=== PATIENT | male | born 1985 | race Caucasian/White ===

== ENCOUNTER 2016-05-30 03:34 | Inpatient (IN) ==
[2016-05-30] MEDS ORDERED: SODIUM CHLORIDE 0.9% 1,000 ML IV STA (04:00)
[2016-05-30] MEDS ORDERED: MORPHINE 2 MG/1 ML SYRINGE IV STA (04:00)
[2016-05-30] MEDS ORDERED: ONDANSETRON 4 MG/2 ML VIAL IV STA (04:00)
[2016-05-30] MEDS ORDERED: ONDANSETRON 4 MG/2 ML VIAL ONE (04:15)
[2016-05-30] MEDS ORDERED: MORPHINE 2 MG/1 ML SYRINGE ONE (04:15)
[2016-05-30 04:35] LABS: Immature Granulocytes % 0.6 %; Immature Granulocytes Absolute 0.09 #; Lymphocytes # 1.2 10*3/uL (1.4-4.0); Lymphocytes % 7.9 % (21.2-54.2); Mean Corpuscular HGB Conc 28.4 GM/DL (32-36); Mean Corpuscular Hemoglobin 19 PG (27-34); Mean Corpuscular Volume 67.7 FL (87-102); Mean Platelet Volume 9.6 FL (9.6-12.0); Monocytes # 0.8 10*3/uL (0.11-0.8); Monocytes % 5.3 % (1.7-12.7); NRBC # 0.06 10*3/uL; Neutrophils # 12.7 10*3/uL (1.4-7.4); Neutrophils % 86.2 % (38.7-73.9); Platelet Count 587 T/CUMM (130-400); Red Blood Count 1.98 MC/CUMM (3.8-5.5); Red Cell Distribution Width 18.1 % (9.3-17.3); White Blood Count 14.7 T/CUMM (4-12)
[2016-05-30 04:40] LABS: Hemoglobin 3.8 GM/DL (14.0-18.0)
[2016-05-30 04:41] LABS: Hematocrit 13.4 VOL% (42.0-52.0)
[2016-05-30 04:57] LABS: Calcium 9.6 MG/DL (8.5-10.1); Potassium 3.8 MMOL/L (3.5-5.1)
--- NOTE | 2016-05-30 05:00 | Emergency Department Note ---
Angelina Broderick Gwan, am scribing for, and in the presence of, Dany Reyes MD 04:09. Eric Broderick Robert M, MD, personally performed the services described in this documentation, ascribed by Kain Alfaro in my presence, and it is both accurate and complete . Arrival - Arrival Chief Complaint: Nausea/Vomiting/Diarrhea Stated Complaint: Nausea/Vomiting. ED Nursing Triage Note: PT ARRIVES VIA EMS WITH COMPLAINTS OF N/V FOR SEVERAL WEEKS. STATES THAT HE HAS NOT BEEN ABLE TO EAT OR DRINK SINCE HE WAS TOLD HE HAS PANCREATITIS. PT STATES THAT HE IS HAVING SOME CRAMPING IN HIS ABD. Mode of Arrival: Stretcher Limitations: No Limitations Source: Patient, Old Records Reviewed, RN Notes Reviewed Time Seen by Provider: 05/30/16 04:00 - History of Present Illness HPI Narrative: Pt is a 30 y/o male, with a hx of Pancreatitis and blood transfusions, who presents to the ED with a c/o N/V, dehydration, heart burn, abd pain and hot/ cold chills with an onset 2 days. Patient confirmed that he has been having cramping pain in his abd that prevents him from eating and that he is constantly thirsty. He said that he is followed by Dr. Rafael Peguero, that his Pancreatitis was onset due to Alcoholism and that he smoke cigarettes. He denies the use of ETOH now. No other problems/complaints reported in ED. Onset (ago): week(s) Consistency: constant Severity: severe Allergies/Adverse Reactions: Allergies Allergy/AdvReac Type Severity Reaction Status Date / Time No Known Allergies Allergy Verified 05/30/16 03:49 Home Medications: Home Medications Medication Instructions Recorded Confirmed Type No Known Home Medications [No 05/30/16 05/30/16 History Known Home Medications] Review of System - Review of System 12 point system: reviewed and no additional remarkable complaints except as stated - Review of System Constitutional: Present: as per HPI, chills, other (dehydration) Cardiovascular: Present: as per HPI, other (heart burn) Gastrointestinal: Present: as per HPI, abdominal pain, nausea, vomiting Medical,Surgical,& Family Hx - Medical History Gastrointestinal: History of: Pancreatitis - Social History Smoking Status: Current every day smoker Frequency of Alcohol Use: None Type of Drug Use: None Exam Vital Signs: Vital Signs Temperature 97.2 F L 02/09/17 03:34 Pulse Rate 98 H 05/30/16 05:08 Respiratory Rate 20 05/30/16 05:08 Blood Pressure 118/87 05/30/16 05:08 O2 Sat by Pulse Oximetry 98 05/30/16 05:08 - General General appearance: alert, other (emanciated; pale) - Eye Eye exam: Present: other (sunken orbits; shinner bilaterally suggesting anemia) - Neck Neck exam: Present: full ROM - Chest Chest inspection: Present: symmetric chest wall rise - Respiratory Respiratory exam: Present: normal lung sounds bilaterally. Absent: respiratory distress - Cardiovascular Cardiovascular exam: Present: regular rate, normal rhythm, normal heart sounds. Absent: murmur, rubs, gallop - Abdominal Exam Abdominal exam: Present: tenderness (Epigastric tenderness) - Extremities Exam Extremities exam: Present: full ROM. Absent: tenderness - Back Exam Back exam: Present: full ROM. Absent: tenderness - Neurological Exam Neurological exam: Present: alert, oriented X3, CN II-XII intact. Absent: motor sensory deficit - Psychiatric Psychiatric exam: Present: flat affect - Skin Skin exam: Present: other (pale skin; bilateral shinner suggestive of anemia) Course - Reevaluation(s) Reevaluation #1: The patient's care was delayed by my absence in order to run a medical code on the floor. We will go ahead type and match and transfuse the patient. ROCHELLE Bowden noted that the patient is vomiting blood. Time: 05:18 - Consultations Consultation #1: I'm going to admit the patient to Dr. Neville Peguero. Dr. Rula Donato is electronic communications technician. Time: 04:57 Results - Labs CBC & BMP: 05/30/16 04:04 05/30/16 04:04 Lab Results: I have reviewed the patients labs Disposition Clinical Impression: acute nausea vomiting, Anemia, Upper GI bleed Case discussed with: patient, patient's family Disposition: Still a Patient Condition: Stable Time of Disposition: 04:59
[2016-05-30] MEDS ORDERED: SODIUM CHLORIDE 0.9% 250 ML IV PRN ×2 (05:14→07:17)
[2016-05-30] MEDS ORDERED: ACETAMINOPHEN 325 MG TABLET PO PRN (05:15)
[2016-05-30] MEDS ORDERED: traMADol 50 MG TABLET PO PRN (05:15)
[2016-05-30] MEDS ORDERED: MORPHINE 2 MG/1 ML SYRINGE IV PRN (05:15)
[2016-05-30 06:15] LABS: Alanine Aminotransferase < 9 U/L (16-61); Albumin 2.5 G/DL (3.4-5.0); Alkaline Phosphatase 101 U/L (45-117); Aspartate Amino Transferase 8 U/L (0-37); Bilirubin,Total < 0.39 MG/DL (0.2-1.0); Blood Urea Nitrogen 28 MG/DL (7-18); Calcium 9.7 MG/DL (8.5-10.1); Glucose 174 MG/DL (74-106); Potassium 3.9 MMOL/L (3.5-5.1); Sodium 143 MMOL/L (136-145); Total Protein 6.3 G/DL (6.4-8.3)
[2016-05-30 06:21] LABS: Lymphocytes 6 % (20-55); Segmented Neutrophils 90 % (50-85); Total Cells Counted 100
[2016-05-30 06:22] LABS: Hypochromasia 2+; Microcytosis 1+; Platelet Estimate Increased; Polychromasia Slight; Target Cells Slight
--- NOTE | 2016-05-30 06:50 | Gastrointestinal Consult Note ---
Assessment and Plan (1) Upper GI bleed Status: Acute Assessment and plan: I suspect this patient may have peptic ulcer disease, erosive gastritis although Maria De Jesus-Bautista tear is still in the differential and esophagitis as had been seen back in 2010. Coverage with acid blocking medication twice a day is likely going to improve his situation considerably. We will look in his duodenal channel see if this is open now or whether he needs a repeat jejunal feeding tube versus a dilation of the posterior bulb to help with motility through this region. Nausea and vomiting may be made worse by gastroparesis and we will look for this entity as well. Have asked her CT scan to evaluate if there is a great deal of stricturing or dilation of the small bowel. We will feed depending on findings at upper endoscopy. It is all right that he try some clear liquids at this point in anticipation of the CT scan. Current Visit: Yes (2) Abnormal weight loss Status: Acute Assessment and plan: This patient has lost a significant amount of weight-- currently is down to 87 pounds at the bedside. I suspect this is from decreased intake of adequate calories over time but there may be an element of gastroparesis or bulbar stricturing, gastritis, overall whole host of other factors that might be feeding into the weight loss. Should be able to tell more once the CT scan of the abdomen and upper endoscopy are completed. Risks of endoscopy were reviewed with the patient are include but are not limited to: Bleeding, infection, perforation, cardiac and pulmonary compromise. Current Visit: Yes (3) History of pancreatitis Status: Acute Assessment and plan: I've asked for an upper endoscopy to be done in order to look and see how well fluids and solids get out of the stomach into the duodenum. 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 Worsened by the patient's acid load. We'll certainly check and see if there is any evidence of ulcers or inflammation either in the esophagus stomach or duodenum. We will check for Helicobacter pylori. Keep the patient off his Pepto-Bismol. He denies NSAID use. We may need to consult surgery about getting another jejunal feeding tube if the stricture in the duodenum cannot be ballooned open her past appropriately. We need to bear in mind the patient may have an underlying Crohn's disease as well. We will see if the CT scan ordered today demonstrates any evidence of pancreatitis. Right now the lipase level increases unimpressive. Current Visit: Yes (4) Acute posthemorrhagic anemia Status: Acute Current Visit: Yes History of Present Illness Chief complaint: weight loss, HCT 13.4% prior history of pancreatitis, nausea and vomiting History of present illness: Mr. Herman is a 30 year old male who was admitted with a history of alcoholic pancreatitis and requirement for blood transfusions in the past by reports from the ER doctor. Extreme anemia His initial hematocrit was 13.4 with a hemoglobin of 3.8. He is now getting his third unit of packed red blood cells and is feeling somewhat better. He has bilateral upper quadrant pain but this seems worse on the right upper quadrant and the left upper quadrant but far from where his feeding tube had been placed. This patient had been previously scoped by Dr. Damian initially on 03/12/11 after he had lost 30 pounds in the last several months at that point. The patient had a pancreatitis with a lipase above 4000 and a possible gastric outlet obstruction. Upper endoscopy demonstrated 5 cm of severe ulcerative esophagitis, there was a large amount of retained food and fluid in the stomach but no other abnormalities the pyloric channel was widely patent but there appeared to be a narrowing at the apex of the duodenal bulb without ulceration that appeared to be evidence of extrinsic compression from some process. A second endoscopy took place on 04/08/11 with a colonoscope and the jejunal feeding tube was placed at that point due to the moderate edema and post-extrinsic effect in the post bulbar duodenum thought secondary to pancreatitis. The jejunal feeding tube did help the patient's weight loss and was removed several months later. The patient did undergo a cyst gastrostomy by Dr. Leone shortly thereafter. The patient did well after removal for a while but since 2013 has become cachectic once again and his sister Danielle [phone] did alert me to the fact that he has been cachectic like this for the last 2 years to 3 years. He has been obtaining [place] on the streets and takes this as his drug of choice for the pain but does not take ibuprofen. He has been using a great number of Tums lately along with some Pepto-Bismol but still finds himself having constant nausea and vomiting. He states that over the last 2 weeks the pain has become quite a bit more severe in the right upper quadrant and he has started having some black stools although states that this might be due to his Pepto-Bismol intake as well. He does not drink any further alcohol by report, he does dip snuff and he smokes approximately a pack and a half cigarettes per day. 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 His current weight is 87 pounds. Home Medications Medication Instructions Recorded Confirmed Type No Known Home Medications [No 05/30/16 05/30/16 History Known Home Medications] Allergies Allergy/AdvReac Type Severity Reaction Status Date / Time No Known Allergies Allergy Verified 05/30/16 03:49 Medical,Surgical,& Family Hx - Medical History Gastrointestinal: History of: Pancreatitis - Social History Smoking Status: Current every day smoker Frequency of Alcohol Use: None Type of Drug Use: None Review of systems: Constitutional: Denies fever, chills, but admits to recent nausea, and vomiting Eyes: Denies dry eyes, and scleral icterus HENT: Denies headaches Cardiovascular: Denies acute chest pain and claudication Respiratory: Denies shortness of breath, wheezing, and difficulty breathing, denies cough Gastrointestinal: As noted in the HPI Genitourinary: Denies dysuria and hematuria Neurologic: Denies vision loss, and loss of sensation Musculoskeletal: Patient does have some joint stiffness, and muscular weakness but no joint swelling Psychiatric: He admits to some depression/addiction issues but no jazmyne symptoms Heme-Lymph: Denies easy bruising, lymph node enlargement or tenderness, night sweats, excessive bleeding Allergies-immunologic: Denies pruritus and rhinorrhea Exam - Constitutional Vitals: Period Temp Pulse Resp BP Sys/Vaca Pulse Ox Last 24 Hr 96-98 18-22 135-137/88-95 95-100 General appearance: mild distress, under weight, other (cachectic peering) - Head Head exam: Present: normocephalic - Eye Eye exam: Present: EOMI Pupils: Present: LEONID - Respiratory Respiratory exam: Present: clear to auscultation bilaterally. Absent: rhonchi, stridor, wheezes - Cardiovascular Cardiovascular exam: Present: regular rate and rhythm. Absent: diastolic murmur , systolic murmur - GI/Abdominal GI/Abdominal exam: Present: hypoactive bowel sounds, tenderness (the abdominal tenderness is diffuse but appears to be mostly centered around the right upper quadrant.), soft, other (scaphoid abdomen). Absent: distended, guarding, rebound - Extremities Exam Extremities exam: Present: normal inspection. Absent: edema - Back Exam Back exam: Present: other (early sacral decubiti noted/pressure spots) - Neurological Exam Neurological exam: Present: alert, oriented X3, CN II-XII intact. Absent: motor sensory deficit - Psychiatric Psychiatric exam: Present: normal affect, normal mood. Absent: agitated, anxious, depressed - Skin Skin exam: Present: warm Results - Labs CBC & BMP: 05/30/16 04:04 05/30/16 04:04
[2016-05-30] MEDS ORDERED: PANTOPRAZOLE 40 MG VIAL IV ONE ×2 (07:16→10:00)
--- NOTE | 2016-05-30 07:25 | Family Practice History&Phys ---
Assessment and Plan (1) Anemia Status: Acute Assessment and plan: 05/30/2016: Transfusion has been ordered emergently. Current Visit: Yes (2) Upper GI bleed Status: Acute Assessment and plan: 05/30/2016: Patient will be admitted to intensive care and Dr. Cervantes has been notified. IV Protonix has been ordered. Current Visit: Yes History of Present Illness Chief complaint: Vomiting blood History of present illness: Mr. Herman is a 30 year old male Patient is a 30-year-old white male presented to the emergency room with complaint of hematemesis. Patient states he has been having abdominal pain for the last 2-3 months and is noticed his stool has been dark. Started vomiting of blood yesterday and eventually decided he better come to the emergency room. I note that the patient has a body weight of 85 pounds and he is emaciated. Patient states he has just had no appetite. Patient has a past medical history of rather severe pancreatitis requiring prolonged hospitalization and surgery for drainage of pseudocyst. He states he has been having some heartburn and indigestion. He does take nonsteroidals on occasion. He denies any fever or chills. States his abdominal pain radiates through to his back. Home Medications Medication Instructions Recorded Confirmed Type No Known Home Medications [No 05/30/16 05/30/16 History Known Home Medications] Allergies Allergy/AdvReac Type Severity Reaction Status Date / Time No Known Allergies Allergy Verified 05/30/16 03:49 - Constitutional Constitutional: Present: anorexia, fatigue, weakness, weight loss - EENT Eyes: Absent: blurry vision, loss of vision Ears: Absent: decreased hearing, ear pain Nose, mouth and throat: Absent: epistaxis, nasal congestion, sinus pressure, sore throat - Cardiovascular Cardiovascular: Absent: chest pain at rest, chest pain with activity, dyspnea, dyspnea on exertion - Respiratory Respiratory: Absent: cough, dyspnea on exertion, wheezing - Gastrointestinal Gastrointestinal: Present: abdominal pain, cramping, dyspepsia, dysphagia, heartburn, hematemesis, melena, nausea, vomiting. Absent: diarrhea - Genitourinary Genitourinary: Absent: dysuria, hematuria, urinary frequency, urinary incontinence - Musculoskeletal Musculoskeletal: Absent: back pain, muscle cramps - Neurological Neurological: Absent: abnormal gait, confusion, dizziness, focal weakness, numbness, paresthesias - Psychiatric Psychiatric: Absent: confusion, depression - Endocrine Endocrine: Absent: fatigue, polydipsia - Hematologic/Lymphatic Hematologic/Lymphatic: Absent: easy bleeding, easy bruising Medical,Surgical,& Family Hx - Medical History Gastrointestinal: History of: Pancreatitis Other: History of: Miscellaneous Medical Problems (Drug and alcohol abuse in the past) - Surgical History Abdominal Surgeries: Surgical HX of: Abdominal Surgery (Drainage of pancreatic pseudocyst) - Family History Family History: noncontributory - Social History Smoking Status: Current every day smoker Frequency of Alcohol Use: None Type of Drug Use: None Exam - Constitutional Vitals: Period Temp Pulse Resp BP Sys/Vaca Pulse Ox Last 24 Hr 96-98 18-22 135-137/88-95 95-100 Exam: Objective the well-developed emaciated white male in severe distress. Patient is pale and is obviously lost a tremendous amount of weight. He weighed 38 kg on admission. Patient is able to give a good history. HEENT: The mucous membranes are pale, the mouth is dry, the pupils are equal round and reactive to light. Neck: The neck is supple with no palpable thyromegaly Cardiovascular: Heart rates rapid without murmurs, thrills or gallops. Respiratory: The lungs were clear to auscultation bilaterally with no rales, rhonchi or wheezes. Abdomen: The abdomen is scaphoid in appearance and diffusely tender directly. He had no rebound or guarding tenderness. There was no free air seen on his portable chest x-ray. Neurologic: Patient's cranial nerves are intact: Patient is noted to have symmetrical strength in upper and lower extremities: There is no sensory deficits. He is alert and oriented 3. Dermatologic: Other than pallor there is no other abnormality. Extremities: There is no calf swelling or tenderness. Musculoskeletal: There is no joint swelling. Results - Labs CBC & BMP: 05/30/16 04:04 05/30/16 04:04 Lab Results: I have reviewed the past 24 hour labs - Diagnostic Findings Procedure: Chest x-ray: report reviewed by me (No acute abnormality seen.)
--- NOTE | 2016-05-30 07:29 | XRay Report ---
XR chest 1V portable Indication: GI bleed Comparison: Chest x-ray dated April 22, 2011 Technique: Single frontal view of the chest Findings: Heart size appears within normal limits. No focal consolidation, pleural effusion, or pneumothorax. Osseous and surrounding soft tissue structures demonstrate no acute abnormality. IMPRESSION: No acute cardiopulmonary process demonstrated. PROCEDURE INTERPRETED AT [facility] DEPARTMENT OF RADIOLOGY Final Report Signed by: Dr Ming Cannon
[2016-05-30 07:41] LABS: INR 1.4; PT Patient Result 15.2 SECS; Partial Thromboplastin Time 27.3 SECS (0-40)
[2016-05-30] MEDS ORDERED: PANTOPRAZOLE INJ 80 MG in SODIUM CHLORIDE 0.9% 100 ML IV ONE ×2 (07:41→09:46)
--- NOTE | 2016-05-30 08:23 | EKG Report ---
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
[2016-05-30] MEDS ORDERED: PANTOPRAZOLE 40 MG TABLET PO SCH (09:00)
[2016-05-30] MEDS: ONDANSETRON 4 MG/2 ML VIAL IV PRN ×2 (09:42→18:18)
[2016-05-30] MEDS: DOCUSATE SODIUM 100 MG CAPSULE PO SCH ×2 (09:55→22:29)
[2016-05-30] MEDS: MORPHINE 2 MG/1 ML SYRINGE IV PRN ×4 (11:36→22:42)
[2016-05-30] MEDS: PANTOPRAZOLE INJ 200 MG in SODIUM CHLORIDE 0.9% 250 ML IV SCH (12:23)
[2016-05-30] MEDS ORDERED: LORazepam 2 MG/1 ML VIAL IV PRN (13:42)
[2016-05-30 14:25] LABS: Basophils % 0.1 % (0.0-0.8); Hematocrit 22.7 VOL% (42.0-52.0); Hemoglobin 7.3 GM/DL (14.0-18.0); Immature Granulocytes % 0.8 %; Immature Granulocytes Absolute 0.15 #; Lymphocytes # 1.4 10*3/uL (1.4-4.0); Lymphocytes % 7.3 % (21.2-54.2); Mean Corpuscular HGB Conc 32.2 GM/DL (32-36); Mean Corpuscular Hemoglobin 25 PG (27-34); Mean Corpuscular Volume 78.3 FL (87-102); Mean Platelet Volume 9.1 FL (9.6-12.0); Monocytes # 1.1 10*3/uL (0.11-0.8); Monocytes % 5.7 % (1.7-12.7); NRBC # 0.04 10*3/uL; Neutrophils # 16.3 10*3/uL (1.4-7.4); Neutrophils % 86.1 % (38.7-73.9); Platelet Count 326 T/CUMM (130-400); Red Cell Distribution Width 19.9 % (9.3-17.3); White Blood Count 18.9 T/CUMM (4-12)
[2016-05-30 16:41] LABS: Hemoglobin 7.1 GM/DL (14.0-18.0)
--- NOTE | 2016-05-30 16:46 | CT Report ---
Exam: CT abdomen w con Date: 05/30/2016 1:22 PM Comparison: 05/06/2011 Indication: Pancreatitis, bulbar stricture, weight loss Technique:[Sequential axial scans of the abdomen were obtained following the ingestion of oral contrast and the injection of 100 cc Omnipaque 350. Coronal and sagittal 2-D reconstructions were obtained. Total DLP: 212.40] Findings: Multifocal parenchymal findings are noted in the right lower lobe with very minimal nodularity. The liver is moderately enlarged with the left lobe extending to the level of the spleen. No liver masses or dilated ducts. Elongation of the gallbladder with progressive gallbladder wall thickening. The spleen is at the upper limits of normal in size. Multiple calcifications are noted in the pancreas with no residual pseudocyst in the tail of the pancreas. New 49 x 34 x 30 mm cystic finding projecting adjacent to the head of the pancreas/gallbladder. Additional tiny hypodense findings in the head of the pancreas. Post operative findings in the pancreas with fatty replacement/atrophy. Pancreatic duct measures 7 mm in diameter in the tail of the pancreas. The adjacent fat has a somewhat hazy appearance. The adrenal glands and kidneys have an unremarkable appearance. The abdominal aorta is normal in size with no adjacent adenopathy. Progressive vasculature in the anterior abdominal location The stomach is distended measuring 160 mm in length. The proximal small bowel appears slightly larger in size in the more distal small bowel. Minimal oral contrast reaches the colon which is incompletely evaluated with pelvis not scanned. Mild gaseous distention of the colon with scattered fecal material. Limited evaluation the area of the appendix. No free air. Degenerative changes are noted. Impression: Interval surgery with no residual pseudocyst in the body and tail of the pancreas. Dilatation of the pancreatic duct measuring 7 mm with findings of chronic pancreatitis. It is difficult to exclude acute pancreatitis with peripancreatic minimal fluid/soft tissue stranding. New 49 x 34 x 30 mm apparent pseudocyst projecting between the head of the pancreas and elongated gallbladder. There is associated compression of the distal stomach/duodenum which is more distended. The wall of the gallbladder appears more thickened which could be related to associated cholecystitis. Ultrasound/biliary scan with ejection fraction may be helpful for further evaluation this finding. Findings in the bowel which may be related to mild ileus, etc. Prominent more prominent vasculature which can be seen with varices, etc. PROCEDURE INTERPRETED AT [facility] DEPARTMENT OF RADIOLOGY Final Report Signed by: Dr. Vijaya Underwood
[2016-05-30 19:51] LABS: Hemoglobin 6.8 GM/DL (14.0-18.0)
[2016-05-31] MEDS: ONDANSETRON 4 MG/2 ML VIAL IV PRN (04:04)
[2016-05-31] MEDS: MORPHINE 2 MG/1 ML SYRINGE IV PRN ×6 (04:04→23:08)
[2016-05-31 05:10] LABS: Hematocrit 29.1 VOL% (42.0-52.0); Hemoglobin 9.5 GM/DL (14.0-18.0)
[2016-05-31] MEDS: DOCUSATE SODIUM 100 MG CAPSULE PO SCH ×2 (09:23→23:12)
--- NOTE | 2016-05-31 10:14 | Physician Query Form ---
CLICK EDIT DOCUMENT TO SELECT QUERY ANSWER --> OK --> SIGN Catie Reyes RN, CCDS Certified Clinical Administrative Services Officer W) [phone] (f) [phone] [email or web address] PROVIDERS: Make your selection(s) from the choices in EACH section by typing an "x" and enter comments in the comment section. Please use your independent medical judgment in providing your response. This request does not imply that any particular answer is desired or expected. CLINICAL INDICATORS: (Providers should not edit this section) The medical record indicates that the patient was admitted with GI bleeding, HH of 3.8/13.4, and the patient was given 5 units of blood. Based on the above, could you clarify which of the following conditions you are evaluating, treating, and/or monitoring? (x ) Blood loss anemia (x ) acute ( ) chronic ( ) acute on chronic ( ) Acute blood loss anemia on baseline chronic anemia ( ) Acute blood loss anemia as a complication of a procedure ( ) Iron deficiency anemia not associated with blood loss ( ) Dilutional anemia due to IV fluids ( ) Anemia due to chemotherapy ( ) Anemia due to neoplastic disease ( ) Anemia due to chronic kidney disease ( ) Pernicious anemia ( ) Aplastic anemia ( ) Hemolytic anemia ( ) immune ( ) non-immune - please specify cause: ( ) Anemia due to other condition, please specify: ( ) Clinically unable to determine COMMENTS: Use of terms such as suspected, likely, or probable (associated with a specific diagnosis that is being evaluated, monitored, or treated as if it exists) are acceptable and can be restated in the discharge summary if not ruled out. MTDD
[2016-05-31] MEDS ORDERED: PROPOFOL 200 MG/20 ML VIAL IV ONE (10:20)
[2016-05-31] MEDS ORDERED: LIDOCAINE 2% 5 ML VIAL ONE (10:20)
--- NOTE | 2016-05-31 10:30 | Operative Note ---
Date of procedure: 05/31/16 Pre-op diagnosis: nausea/vomiting, extreme weight loss, history of pancreatitis/ pseudocyst Post-op diagnosis: other (This patient has near 100% obstruction of the posterior bulb with a large ulcer with pigmented spot in the duodenum, this is likely the cause for his nausea and vomiting as well as long-term weight loss. This will likely require surgical resection. He also has LA class D erosive esophagitis times 14 cm, this also has a Maria De Jesus-Bautista tear at the GE junction and a small hiatal hernia seen incidentally.) Procedure: PROCEDURE: Esophagogastroduodenoscopy (EGD) with cold biopsy for pathology. REFERRING PHYSICIAN: Dr. Darvin Peguero M.D. 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 The prior H&P was reviewed and interrim changes are as noted: No change from GI consultation yesterday ENDOSCOPIST: Tony Cope MD ENDOSCOPE: Olympus Video 100 System upper endoscope ASA CLASS: 3 EXAM: CV: regular rate and rhythm Respiratory: Clear without wheezes Abdominal: active bowel sounds MEDICATION: Per nursing anesthesia protocol, see their notes PROCEDURE: After discussion of the potential risks and benefits of upper endoscopy, the informed consent was obtained. The patient was then placed in the left lateral decubitus position where sedation was achieved as noted above. Esophageal intubation was performed without difficulty, and the endoscope was advanced through the esophagus, stomach and duodenum. A slow withdrawal was then performed with retroflexion in the stomach for careful inspection of the incisura angularis, fundus and cardia. The scope was then returned to a neutral position and withdrawn through the esophagus. The patient tolerated the procedure well and without complication. BIOPSIES: Gastric antrum/body PHOTOGRAPHS: Obtained FINDINGS: Hypopharynx and Larynx: Normal Esohagoscopy Upper and middle thirds: Severe erosive gastritis starting at 35 cm, LA class D Lower third LA class D erosive esophagitis from 28-42 cm, Maria De Jesus-Bautista tear noted at the GE junction, mildly narrowed Esophogastric junctions: Healing Maria De Jesus-Bautista tear noted at the GE junction, Gastroscopy: Cardia/Fundus: 2 cm hiatal hernia, evidence of retained fluid in the stomach (moderate amount of clear nonbilious) Body: Mild gastritis, corkscrew shape stomach Antrum and pylorus this patient has a ulcer involving his pyloric/ proximal duodenal region which is circumferential and quite large Duodenoscopy: Bulb very large duodenal ulcer with pigmented spot that involves almost all the bulb. There is posterior narrowing to the point where essentially no fluid leaves the bulb, I could not see it exit and we elected not to try and push forward as a clear exit could not be identified Second and third portions: Unable to see due to obstruction of the posterior bulb IMPRESSION: This patient has near 100% obstruction of the posterior bulb with a large ulcer with pigmented spot in the duodenum, this is likely the cause for his nausea and vomiting as well as long-term weight loss. This will likely require surgical resection. He also has LA class D erosive esophagitis times 14 cm, this also has a Maria De Jesus-Bautista tear at the GE junction and a small hiatal hernia seen incidentally. RECOMMENDATIONS: Follow up for biopsy results in 1-2 weeks by phone [phone] Continue anti-gastroesophageal reflux measures (avoid carbonated and acidic beverages, avoid eating within 2 hours of bedtime, avoid tight fitting clothing , and elevate the front bed posts 6 inches prior to sleeping. Tony Cope MD COPY TO: Darvin Peguero M.D. Anesthesia: MAC Surgeon / Physician: Tony Cope Estimated blood loss: minimal Specimens: none sent Condition: stable Disposition: post procedure unit Results - Labs CBC & BMP: 05/31/16 04:05 05/30/16 04:04 Discharge Plan - Discharge Medications No Action No Known Home Medications [No Known Home Medications] - Follow Up or Referral - Forms/Instructions
--- NOTE | 2016-05-31 10:42 | Gastrointestinal Progress Note ---
Assessment and Plan (1) Upper GI bleed Status: Acute Assessment and plan: I suspect this patient may have peptic ulcer disease, erosive gastritis although Maria De Jesus-Bautista tear is still in the differential and esophagitis as had been seen back in 2010 [place]. Coverage with acid blocking medication twice a day is likely going to improve his situation considerably. We will look in his duodenal channel see if this is open now or whether he needs a repeat jejunal feeding tube versus a dilation of the posterior bulb to help with motility through this region. Nausea and vomiting may be made worse by gastroparesis and we will look for this entity as well. Have asked her CT scan to evaluate if there is a great deal of stricturing or dilation of the small bowel. We will feed depending on findings at upper endoscopy. It is all right that he try some clear liquids at this point in anticipation of the CT scan. 05/31/16-- The upper endoscopy seems that showed complete circumferential obstruction at the level posterior bulb of the duodenum with pigmented spot-- I cannot see an emptying point into the remaining duodenum, there is an LA class D erosive esophagitis 10 cm as well with a Maria De Jesus-Bautista tear at the GE junction in addition. Anyone of these could be the bleeding source for this patient but likely all 3 together Current Visit: Yes (2) Abnormal weight loss Status: Acute Assessment and plan: This patient has lost a significant amount of weight-- currently is down to 87 pounds at the bedside. I suspect this is from decreased intake of adequate calories over time but there may be an element of gastroparesis or bulbar stricturing, gastritis, overall whole host of other factors that might be feeding into the weight loss. Should be able to tell more once the CT scan of the abdomen and upper endoscopy are completed. Risks of endoscopy were reviewed with the patient are include but are not limited to: Bleeding, infection, perforation, cardiac and pulmonary compromise. 05/31/16--this patient has what appears to be posterior bulb duodenal obstruction with a circumferential ulcer. This almost certainly will require surgery for resection. It will not heal on its own in my opinion. This will require a Billroth I or II procedure most likely from my opinion. Current Visit: Yes (3) History of pancreatitis Status: Acute Assessment and plan: I've asked for an upper endoscopy to be done in order to look and see how well fluids and solids get out of the stomach into the duodenum. 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 Worsened by the patient's acid load. We'll certainly check and see if there is any evidence of ulcers or inflammation either in the esophagus stomach or duodenum. We will check for Helicobacter pylori. Keep the patient off his Pepto-Bismol. He denies NSAID use. We may need to consult surgery about getting another jejunal feeding tube if the stricture in the duodenum cannot be ballooned open her past appropriately. We need to bear in mind the patient may have an underlying Crohn's disease as well. We will see if the CT scan ordered today demonstrates any evidence of pancreatitis. Right now the lipase level increases unimpressive. Current Visit: Yes (4) Acute posthemorrhagic anemia Status: Acute Assessment and plan: See above Current Visit: Yes Gastroenterology - PN: Subj Interval history: The patient had some mild nausea with the intake of clear liquids up until midnight last night. He has not had anything yet this morning. Exam (Progress Note) - Constitutional Vitals: Period Temp Pulse Resp BP Sys/Vaca Pulse Ox Last 24 Hr 98.6 F-100.6 F 65-101 10- 110-154/73-102 98-100 General appearance: mild distress - Eye Eye exam: Present: EOMI Pupils: Present: LEONID - Respiratory Respiratory exam: Present: clear to auscultation bilaterally - Cardiovascular Cardiovascular exam: Present: regular rate and rhythm - GI/Abdominal GI/Abdominal exam: Present: normal bowel sounds, tenderness (very mild diffuse) , soft, other (scaphoid). Absent: guarding, rebound - Back Exam Back exam: Present: normal inspection - Neurological Exam Neurological exam: Present: alert, oriented X3, CN II-XII intact Results - Labs CBC & BMP: 05/31/16 04:05 05/30/16 04:04
--- NOTE | 2016-05-31 10:48 | Anesthesia ---
Anesthesia Post OP - Post Ansesthetic Evaluation Patient seen in post op: Yes Resp: within normal limits CV: within normal limits Mental: within normal limits Temp: within normal limits [id number]: within normal limits Nausea and Vomiting: within normal limits Pain: within normal limits
[2016-05-31] MEDS: PANTOPRAZOLE INJ 200 MG in SODIUM CHLORIDE 0.9% 250 ML IV SCH (15:41)
--- NOTE | 2016-05-31 16:37 | Family Practice Progress Note ---
Family Practice - PN: Subj Interval history: Patient was seen this morning. At that time he was scheduled for an EGD which has been done. It was noted that he has a obstruction at the duodenal bulb and this is probably require surgical consult. We will going to go ahead and try to initiate a PICC line for TPn through specialties. We are going to continue very slow IV fluids and hold patient nothing by mouth for now . Vitals at this time are stable. When I saw him this morning he was very alert and oriented and answered all questions appropriately. Extremely emaciated/cachectic. Appreciate GI assistance on this difficult case Exam (Progress Note) - Constitutional Vitals: Period Temp Pulse Resp BP Sys/Vaca Pulse Ox Last 24 Hr 98.6 F-100.6 F 64-90 10-21 110-146/73-97 98-100 Exam: Generally very cachectic young man. He has an extremely low BMI. Is alert and oriented and answers all questions and very cognitive. HEENT pupils are equally reactive to light neck is supple Cardiovascular rate is regular no gallop or rub Lungs clear without significant shortness of breath Abdomen is soft mildly tender at present he denies any severe pain at present. Results - Labs CBC & BMP: 05/31/16 04:05 05/30/16 04:04 Assessment and Plan (1) Anemia Status: Acute Assessment and plan: Patient has been transfused several units of blood in his crit has come up some. We will continue to monitor H&H Current Visit: Yes (2) Upper GI bleed Status: Acute Assessment and plan: 05/31/16: GI EGD was done today. Results are noted Current Visit: Yes (3) History of pancreatitis Status: Acute Assessment and plan: We will continue to monitor her current pancreatic enzymes periodically Current Visit: Yes
--- NOTE | 2016-05-31 16:38 | Fluoroscopy Report ---
Exam: [place] upper GI series Date: 05/31/2016 10:44 AM Comparison: CT abdomen 05/30/2016 Indication: Duodenal obstruction on endoscopy Technique:[Fluoroscopy time 5 minutes documented.] Multiple fluoroscopic and overhead films obtained. Findings: Retained oral contrast in the colon from recent CT. Because of history of Maria De Jesus-Bautista tear, the patient was given Gastrografin orally. Small hiatal hernia with irregularity of the wall of the distal esophagus. No leakage of the contrast. The stomach appears less distended when compared to the CT. Calcifications are noted in the head of the pancreas. There is a high-grade obstruction in the post bulbar duodenal location with delayed emptying of the stomach. Eventually there was filling of the duodenum to the level of the SMA with to and fro peristalsis. This portion of the duodenum is minimally dilated with initial nonemptying. However on the two-hour delayed film, there is emptying of the contrast into the more distal less dilated small bowel and colon. Impression: Small hiatal hernia with irregularity of the wall of the distal esophagus consistent with esophagitis. No leakage of contrast. High-grade post bulbar duodenal obstruction in patient with probable pseudocyst in this location. Evidence of chronic pancreatitis with multiple pancreatic calcifications. 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 Persistent contrast in the stomach and duodenal bulb on the 2 hour delayed film. However there is passage of some of the oral contrast into the more distal nondilated small bowel and colon. PROCEDURE INTERPRETED AT [facility] DEPARTMENT OF RADIOLOGY Final Report Signed by: Dr. Vijaya Underwood
--- NOTE | 2016-05-31 17:00 | Post Interventional Procedure ---
Pre-op diagnosis: TPN requirement Post-op diagnosis: same Procedure: PICC LUE Flouroscopy: 0.2 min Radiologist: Nuno Dueñas Anesthesia: local Specimens: none sent Estimated blood loss: none Complications: none Condition: stable
--- NOTE | 2016-05-31 17:11 | Interventional Radiology Rpt ---
IR PICC line insertion, US guide vascular access Indication: History of pancreatitis. Anorexia. TPN requirement. PICC LINE Description: A formal timeout was performed. Maximum sterile barrier technique was used. Sonographic evaluation of the left upper extremity demonstrates patent and compressible basilic vein. The upper arm was prepped and draped in sterile fashion. 3 cc 1% lidocaine was administered subcutaneously. Under sonographic guidance, a micropuncture needle was advanced into the vein. A captured sonographic image documents the position of the needle. Needle was exchanged over a wire for a peel-away sheath. A dual lumen power PICC, cut to 42 cm, was advanced over the wire until the tip was at the RA-SVC junction. The position of the catheter was confirmed with fluoroscopic guidance and an image stored in PACS. The wire and sheath were removed. Both ports of the PICC were aspirated and flushed with heparinized saline. The device was secured with a StatLock. Fluoroscopy: 0.2 minutes. Impression: PICC line ready for immediate use. Routine catheter care. PROCEDURE INTERPRETED AT [facility] DEPARTMENT OF RADIOLOGY Final Report Signed by: Nuno Dueñas M.D.
[2016-05-31] MEDS ORDERED: DEXTROSE 10% 1,000 ML IV PRN (20:06)
[2016-05-31] MEDS ORDERED: DEXTROSE 50% 25 GM/50 ML VIAL IV PRN (20:06)
[2016-05-31] MEDS ORDERED: GLUCAGON 1 MG VIAL IM PRN (20:06)
[2016-05-31] MEDS: FAT EMULSION 20% 250 ML IV SCH (21:15)
[2016-05-31] MEDS ORDERED: TRACE ELEMENTS (5) 1 ML, MULTIVITAMIN INJ 10 ML in AMINO ACIDS/DEXT/LYTES 5-15% 1,000 ML IV SCH (22:00)
[2016-06-01] MEDS: MORPHINE 2 MG/1 ML SYRINGE IV PRN ×6 (03:00→22:54)
[2016-06-01 05:07] LABS: Basophils % 0.1 % (0.0-0.8); Eosinophils % 0.1 % (0.00-10.9); Hematocrit 29.1 VOL% (42.0-52.0); Hemoglobin 9.5 GM/DL (14.0-18.0); Immature Granulocytes % 0.5 %; Immature Granulocytes Absolute 0.04 #; Lymphocytes # 1.3 10*3/uL (1.4-4.0); Lymphocytes % 16.3 % (21.2-54.2); Mean Corpuscular HGB Conc 32.6 GM/DL (32-36); Mean Corpuscular Hemoglobin 26 PG (27-34); Mean Corpuscular Volume 80.8 FL (87-102); Mean Platelet Volume 9.1 FL (9.6-12.0); Monocytes # 0.5 10*3/uL (0.11-0.8); Monocytes % 6.4 % (1.7-12.7); NRBC # 0.05 10*3/uL; Neutrophils % 76.6 % (38.7-73.9); Platelet Count 207 T/CUMM (130-400); Red Cell Distribution Width 18.2 % (9.3-17.3); White Blood Count 7.8 T/CUMM (4-12)
[2016-06-01 05:33] LABS: Calcium 7.1 MG/DL (8.5-10.1); Potassium 3.5 MMOL/L (3.5-5.1)
--- NOTE | 2016-06-01 08:01 | Family Practice Progress Note ---
Family Practice - PN: Subj Interval history: Patient seen this morning. He was resting well. Vital signs stable through the night. Is white count is some moderate hemoglobin 9.5 hematocrit 29.1 and stable at present. BMP was normal except for slightly low calcium 7.1. He is having no active bleeding. We do have a PICC line in him now infusing hyperalimentation. Is tolerating this well. No acute distress otherwise and we are going to continue this and it surgical consult Friday to decide how to progress. Having no more vomiting admits to Exam (Progress Note) - Constitutional Vitals: Period Temp Pulse Resp BP Sys/Vaca Pulse Ox Last 24 Hr 98 F-99.3 F 54-76 10-20 122-160/77-103 96-100 Exam: Generally stable no changes overall. He remains severely emaciated HEENT essentially negative from yesterday Cardiovascular rate regular no gallop or rub Lungs clear no shortness breath Abdomen soft nondistended Extremities no clubbing cyanosis or edema. Results - Labs CBC & BMP: 06/01/16 05:00 06/01/16 05:00 Assessment and Plan (1) Anemia Status: Acute Assessment and plan: Patient has been transfused several units of blood in his crit has come up some. We will continue to monitor H&H To 1117 we are going to continue to monitor his H&H is stable today Current Visit: Yes (2) Upper GI bleed Status: Acute Assessment and plan: 05/31/16: GI EGD was done today. Results are noted O2 1117 no GI bleeding is present present Current Visit: Yes (3) History of pancreatitis Status: Acute Assessment and plan: We will continue to monitor her current pancreatic enzymes periodically Current Visit: Yes
[2016-06-01] MEDS: DOCUSATE SODIUM 100 MG CAPSULE PO SCH ×2 (08:59→20:17)
[2016-06-01] MEDS: PANTOPRAZOLE INJ 200 MG in SODIUM CHLORIDE 0.9% 250 ML IV SCH ×2 (10:53→19:19)
--- NOTE | 2016-06-01 12:55 | Gastrointestinal Progress Note ---
Assessment and Plan (1) Upper GI bleed Status: Acute Assessment and plan: I suspect this patient may have peptic ulcer disease, erosive gastritis although Maria De Jesus-Bautista tear is still in the differential and esophagitis as had been seen back in 2010 [place]. Coverage with acid blocking medication twice a day is likely going to improve his situation considerably. We will look in his duodenal channel see if this is open now or whether he needs a repeat jejunal feeding tube versus a dilation of the posterior bulb to help with motility through this region. Nausea and vomiting may be made worse by gastroparesis and we will look for this entity as well. Have asked her CT scan to evaluate if there is a great deal of stricturing or dilation of the small bowel. We will feed depending on findings at upper endoscopy. It is all right that he try some clear liquids at this point in anticipation of the CT scan. 05/31/16-- The upper endoscopy seems that showed complete circumferential obstruction at the level posterior bulb of the duodenum with pigmented spot-- I cannot see an emptying point into the remaining duodenum, there is an LA class D erosive esophagitis 10 cm as well with a Maria De Jesus-Bautista tear at the GE junction in addition. Anyone of these could be the bleeding source for this patient but likely all 3 together. 06/01/16-- barium swallow/upper GI series demonstrates a scant amount of emptying through the post bulbar stricture into the duodenum with a poststenotic dilation and some question of a SMA syndrome present. While this may be seen with a vessel coursing across the duodenum typically this would have an appearance of external compression on the duodenum not a large ulcer without exit in the duodenal bulb. Surgery will almost certainly still be needed. He do not know if the surgeon will elect to simply bypass this area the duodenum and open a gastrojejunostomy vs. duodenal resection and a Billroth II. Surgery likely to evaluate the patient on Friday. TPN continues at this point. Current Visit: Yes (2) Abnormal weight loss Status: Acute Assessment and plan: This patient has lost a significant amount of weight-- currently is down to 87 pounds at the bedside. I suspect this is from decreased intake of adequate calories over time but there may be an element of gastroparesis or bulbar stricturing, gastritis, overall whole host of other factors that might be feeding into the weight loss. Should be able to tell more once the CT scan of the abdomen and upper endoscopy are completed. Risks of endoscopy were reviewed with the patient are include but are not limited to: Bleeding, infection, perforation, cardiac and pulmonary compromise. 05/31/16--this patient has what appears to be posterior bulb duodenal obstruction with a circumferential ulcer. This almost certainly will require surgery for resection. It will not heal on its own in my opinion. This will require a Billroth I or II procedure most likely from my opinion. 06/01/16--no change from the above. Current Visit: Yes (3) History of pancreatitis Status: Acute Assessment and plan: I've asked for an upper endoscopy to be done in order to look and see how well fluids and solids get out of the stomach into the duodenum. 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 Worsened by the patient's acid load. We'll certainly check and see if there is any evidence of ulcers or inflammation either in the esophagus stomach or duodenum. We will check for Helicobacter pylori. Keep the patient off his Pepto-Bismol. He denies NSAID use. We may need to consult surgery about getting another jejunal feeding tube if the stricture in the duodenum cannot be ballooned open her past appropriately. We need to bear in mind the patient may have an underlying Crohn's disease as well. We will see if the CT scan ordered today demonstrates any evidence of pancreatitis. Right now the lipase level increases unimpressive. 06/01/16-- continued observation advised Current Visit: Yes (4) Acute posthemorrhagic anemia Status: Acute Assessment and plan: See above, hematocrit is 29% which is stable for this patient. Current Visit: Yes Gastroenterology - PN: Subj Interval history: He is not having any recent vomiting at this point but is not trying to take any oral intake either. Apparently he is handling his secretions well. The barium upper GI series demonstrates post bulbar obstruction with very minimal flow of contrast into a post-strictured duodenum with some to and fro movement and there appears to be a possible SMA syndrome here caused by Crossing of the duodenum Steven Janeth mesenteric artery resulting in truncation. The appearance on endoscopy however was a picture of ulceration and complete blockage, not external compression. Exam (Progress Note) - Constitutional Vitals: Period Temp Pulse Resp BP Sys/Vaca Pulse Ox Last 24 Hr 98 F-99.3 F 54-70 10-20 115-160/77-103 96-100 General appearance: no acute distress - Head Head exam: Present: normocephalic - Eye Eye exam: Present: EOMI - Respiratory Respiratory exam: Present: clear to auscultation bilaterally - Cardiovascular Cardiovascular exam: Present: regular rate and rhythm - GI/Abdominal GI/Abdominal exam: Present: normal bowel sounds, tenderness (in the epigastric region), soft. Absent: guarding - Extremities Exam Extremities exam: Absent: edema - Back Exam Back exam: Present: normal inspection - Neurological Exam Neurological exam: Present: alert, oriented X3 - Psychiatric Psychiatric exam: Present: normal affect, normal mood - Skin Skin exam: Present: warm Results - Labs CBC & BMP: 06/01/16 05:00 06/01/16 05:00
[2016-06-01] MEDS: FAT EMULSION 20% 250 ML IV SCH (14:16)
[2016-06-01] MEDS: TRACE ELEMENTS (5) 1 ML, MULTIVITAMIN INJ 10 ML in AMINO ACIDS/DEXT/LYTES 5-15% 2,000 ML IV SCH (22:24)
[2016-06-02] MEDS: MORPHINE 2 MG/1 ML SYRINGE IV PRN ×5 (03:00→20:14)
[2016-06-02 05:51] LABS: Basophils % 0.2 % (0.0-0.8); Eosinophils % 0.2 % (0.00-10.9); Hematocrit 29.2 VOL% (42.0-52.0); Hemoglobin 9.6 GM/DL (14.0-18.0); Immature Granulocytes % 0.4 %; Immature Granulocytes Absolute 0.02 #; Lymphocytes # 0.9 10*3/uL (1.4-4.0); Lymphocytes % 15.8 % (21.2-54.2); Mean Corpuscular HGB Conc 32.9 GM/DL (32-36); Mean Corpuscular Hemoglobin 26 PG (27-34); Mean Corpuscular Volume 78.5 FL (87-102); Mean Platelet Volume 9.6 FL (9.6-12.0); Monocytes # 0.4 10*3/uL (0.11-0.8); Monocytes % 7.4 % (1.7-12.7); NRBC # 0.03 10*3/uL; Neutrophils # 4.2 10*3/uL (1.4-7.4); Platelet Count 193 T/CUMM (130-400); Red Blood Count 3.72 MC/CUMM (3.8-5.5); Red Cell Distribution Width 18.1 % (9.3-17.3); White Blood Count 5.5 T/CUMM (4-12)
[2016-06-02 06:26] LABS: Calcium 7.6 MG/DL (8.5-10.1); Magnesium 2.3 MG/DL (1.8-2.4)
[2016-06-02 06:34] LABS: Albumin 2.2 G/DL (3.4-5.0); Bilirubin,Direct 0.1 MG/DL (0.0-0.20); Bilirubin,Indirect 0.6 MG/DL (0.0-1.0); Bilirubin,Total 0.7 MG/DL (0.2-1.0); Total Protein 5.3 G/DL (6.4-8.3)
--- NOTE | 2016-06-02 07:29 | Family Practice Progress Note ---
Family Practice - PN: Subj Interval history: Patient seen this morning. He is sitting up in the bed no acute distress. Having intermittent mild abdominal discomfort but is getting morphine around-the -clock and states this is helping. CBC and chemistries are grossly unchanged at this time. His lipase is 502 which is up very slightly. Otherwise he's doing the same and will be awaiting surgical decision on how to address the duodenal stenosis. Exam (Progress Note) - Constitutional Vitals: Period Temp Pulse Resp BP Sys/Vaca Pulse Ox Last 24 Hr 98.3 F-99.3 F 53-82 10-20 115-151/75-106 97-100 Exam: Generally stable no changes overall. He remains severely emaciated, is on TPN HEENT essentially negative from yesterday Cardiovascular rate regular no gallop or rub Lungs clear no shortness breath Abdomen soft nondistended Extremities no clubbing cyanosis or edema. Results - Labs CBC & BMP: 06/02/16 05:16 06/02/16 05:16 Assessment and Plan (1) Anemia Status: Acute Assessment and plan: Patient has been transfused several units of blood in his crit has come up some. We will continue to monitor H&H To 1117 we are going to continue to monitor his H&H is stable today 06/02/16. Patient is doing well at this time H&H are good Current Visit: Yes (2) Upper GI bleed Status: Acute Assessment and plan: 05/31/16: GI EGD was done today. Results are noted O2 1117 no GI bleeding is present present 06/02/16 no recurrent bleed, H&H are stable Current Visit: Yes (3) History of pancreatitis Status: Acute Assessment and plan: We will continue to monitor her current pancreatic enzymes periodically Current Visit: Yes
[2016-06-02] MEDS: DOCUSATE SODIUM 100 MG CAPSULE PO SCH (08:36)
[2016-06-02] MEDS: FAT EMULSION 20% 250 ML IV SCH (13:56)
--- NOTE | 2016-06-02 16:03 | Gastrointestinal Progress Note ---
Assessment and Plan (1) Upper GI bleed Status: Acute Assessment and plan: I suspect this patient may have peptic ulcer disease, erosive gastritis although Maria De Jesus-Bautista tear is still in the differential and esophagitis as had been seen back in 2010 [place]. Coverage with acid blocking medication twice a day is likely going to improve his situation considerably. We will look in his duodenal channel see if this is open now or whether he needs a repeat jejunal feeding tube versus a dilation of the posterior bulb to help with motility through this region. Nausea and vomiting may be made worse by gastroparesis and we will look for this entity as well. Have asked her CT scan to evaluate if there is a great deal of stricturing or dilation of the small bowel. We will feed depending on findings at upper endoscopy. It is all right that he try some clear liquids at this point in anticipation of the CT scan. 05/31/16-- The upper endoscopy seems that showed complete circumferential obstruction at the level posterior bulb of the duodenum with pigmented spot-- I cannot see an emptying point into the remaining duodenum, there is an LA class D erosive esophagitis 10 cm as well with a Maria De Jesus-Bautista tear at the GE junction in addition. Anyone of these could be the bleeding source for this patient but likely all 3 together. 06/01/16-- barium swallow/upper GI series demonstrates a scant amount of emptying through the post bulbar stricture into the duodenum with a poststenotic dilation and some question of a SMA syndrome present. While this may be seen with a vessel coursing across the duodenum typically this would have an appearance of external compression on the duodenum not a large ulcer without exit in the duodenal bulb. Surgery will almost certainly still be needed. He do not know if the surgeon will elect to simply bypass this area the duodenum and open a gastrojejunostomy vs. duodenal resection and a Billroth II. Surgery likely to evaluate the patient on Friday. TPN continues at this point. 06/02/16--We are waiting Dr. Leone's return tomorrow in order to discuss potential surgery with the patient for some sort of Billroth I or II procedure versus gastrojejunostomy. He has near 100% obstruction of his posterior bulb distally. Current Visit: Yes (2) Abnormal weight loss Status: Acute Assessment and plan: This patient has lost a significant amount of weight-- currently is down to 87 pounds at the bedside. I suspect this is from decreased intake of adequate calories over time but there may be an element of gastroparesis or bulbar stricturing, gastritis, overall whole host of other factors that might be feeding into the weight loss. Should be able to tell more once the CT scan of the abdomen and upper endoscopy are completed. Risks of endoscopy were reviewed with the patient are include but are not limited to: Bleeding, infection, perforation, cardiac and pulmonary compromise. 05/31/16--this patient has what appears to be posterior bulb duodenal obstruction with a circumferential ulcer. This almost certainly will require surgery for resection. It will not heal on its own in my opinion. This will require a Billroth I or II procedure most likely from my opinion. 06/01/16--no change from the above. 06/02/16--same as above Current Visit: Yes (3) History of pancreatitis Status: Acute Assessment and plan: I've asked for an upper endoscopy to be done in order to look and see how well fluids and solids get out of the stomach into the duodenum. 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 Worsened by the patient's acid load. We'll certainly check and see if there is any evidence of ulcers or inflammation either in the esophagus stomach or duodenum. We will check for Helicobacter pylori. Keep the patient off his Pepto-Bismol. He denies NSAID use. We may need to consult surgery about getting another jejunal feeding tube if the stricture in the duodenum cannot be ballooned open her past appropriately. We need to bear in mind the patient may have an underlying Crohn's disease as well. We will see if the CT scan ordered today demonstrates any evidence of pancreatitis. Right now the lipase level increases unimpressive. 06/01/16-- continued observation advised 06/02/16--same as above Current Visit: Yes (4) Acute posthemorrhagic anemia Status: Acute Assessment and plan: See above, hematocrit is 29% which is stable for this patient. 06/02/16-- His crit is still 29%, patient appears to be stable, we will try some clear liquids to see how these are tolerated for the patient. Current Visit: Yes Gastroenterology - PN: Subj Interval history: The patient states that he is "starving" and would like to start on some clear liquids. He has been eating ice chips all day and has been able to suck on glycerin swabs but would like to try something more substantial. We did agree that if he started to vomit he needs to stop the clears. He is still having his "usual abdominal tenderness" which is about 8 out of 10 in intensity in the epigastric region. Exam (Progress Note) - Constitutional Vitals: Period Temp Pulse Resp BP Sys/Vaca Pulse Ox Last 24 Hr 98.6 F-98.9 F 53-82 12-20 117-155/75-109 97-100 General appearance: under weight - Head Head exam: Present: normocephalic, atraumatic - Eye Eye exam: Present: EOMI Pupils: Present: LEONID - Respiratory Respiratory exam: Present: clear to auscultation bilaterally. Absent: rhonchi, stridor, wheezes - GI/Abdominal GI/Abdominal exam: Present: normal bowel sounds, tenderness, soft. Absent: distended, guarding - Neurological Exam Neurological exam: Present: alert, oriented X3 - Psychiatric Psychiatric exam: Present: normal affect, normal mood - Skin Skin exam: Present: warm Results - Labs CBC & BMP: 06/02/16 05:16 06/02/16 05:16
[2016-06-02] MEDS: PANTOPRAZOLE 40 MG VIAL IV SCH (20:13)
[2016-06-02] MEDS: TRACE ELEMENTS (5) 1 ML, MULTIVITAMIN INJ 10 ML in AMINO ACIDS/DEXT/LYTES 5-15% 2,000 ML IV SCH (22:39)
[2016-06-03] MEDS: MORPHINE 2 MG/1 ML SYRINGE IV PRN ×6 (00:14→20:05)
[2016-06-03 04:30] LABS: Calcium 7.6 MG/DL (8.5-10.1); Magnesium 2.5 MG/DL (1.8-2.4); Phosphorous 1.5 MG/DL (2.5-4.9); Potassium 3.8 MMOL/L (3.5-5.1)
--- NOTE | 2016-06-03 07:32 | Family Practice Progress Note ---
Family Practice - PN: Subj Interval history: Patient certainly doing better overall but he still having quite a bit of abdominal pain. Results of patient's EGD and upper GI are noted. The surgical option is being evaluated though I think this may be very difficult technically due to patient's previous severe pancreatitis. He is requiring his pain medicine every 4 hours and states he could use it every 3 hours. He is presently on hyperalimentation. His hematocrit has risen to 29% lesion having no further bleeding apparently. Exam (Progress Note) - Constitutional Vitals: Period Temp Pulse Resp BP Sys/Vaca Pulse Ox Last 24 Hr 98 F-99 F 57-81 16-22 107-155/63-109 98-100 Exam: Objective reveals an emaciated white male who certainly looks better than that he did on admission. His color certainly improved. He is awake and alert and able to give good history. Cardiovascular: Heart rate is regular without murmurs Respiratory: The lungs clear to auscultation bilaterally Abdomen: The abdomen is scaphoid and diffusely tender directly. There is no rebound or guarding. Extremities: There is no calf swelling or tenderness. Results - Labs CBC & BMP: 06/02/16 05:16 06/03/16 03:45 Lab Results: I have reviewed the past 24 hour labs Assessment and Plan (1) Anemia Status: Acute Assessment and plan: 05/30/2016: Transfusion has been ordered emergently. 06/03/2016: Patient's hematocrit is 29% this morning. Current Visit: Yes (2) Upper GI bleed Status: Acute Assessment and plan: 05/30/2016: Patient will be admitted to intensive care and Dr. Cervantes has been notified. IV Protonix has been ordered. 06/03/2016: No further bleeding is noted. Patient has duodenal ulcer and extrinsic narrowing of his duodenum Current Visit: Yes
[2016-06-03] MEDS: PANTOPRAZOLE 40 MG VIAL IV SCH ×2 (08:12→20:05)
--- NOTE | 2016-06-03 13:52 | Gastrointestinal Progress Note ---
Assessment and Plan (1) Upper GI bleed Status: Acute Assessment and plan: I suspect this patient may have peptic ulcer disease, erosive gastritis although Maria De Jesus-Bautista tear is still in the differential and esophagitis as had been seen back in 2010 [place]. Coverage with acid blocking medication twice a day is likely going to improve his situation considerably. We will look in his duodenal channel see if this is open now or whether he needs a repeat jejunal feeding tube versus a dilation of the posterior bulb to help with motility through this region. Nausea and vomiting may be made worse by gastroparesis and we will look for this entity as well. Have asked her CT scan to evaluate if there is a great deal of stricturing or dilation of the small bowel. We will feed depending on findings at upper endoscopy. It is all right that he try some clear liquids at this point in anticipation of the CT scan. 05/31/16-- The upper endoscopy seems that showed complete circumferential obstruction at the level posterior bulb of the duodenum with pigmented spot-- I cannot see an emptying point into the remaining duodenum, there is an LA class D erosive esophagitis 10 cm as well with a Maria De Jesus-Bautista tear at the GE junction in addition. Anyone of these could be the bleeding source for this patient but likely all 3 together. 06/01/16-- barium swallow/upper GI series demonstrates a scant amount of emptying through the post bulbar stricture into the duodenum with a poststenotic dilation and some question of a SMA syndrome present. While this may be seen with a vessel coursing across the duodenum typically this would have an appearance of external compression on the duodenum not a large ulcer without exit in the duodenal bulb. Surgery will almost certainly still be needed. He do not know if the surgeon will elect to simply bypass this area the duodenum and open a gastrojejunostomy vs. duodenal resection and a Billroth II. Surgery likely to evaluate the patient on Friday. TPN continues at this point. 06/02/16--We are waiting Dr. Leone's return tomorrow in order to discuss potential surgery with the patient for some sort of Billroth I or II procedure versus gastrojejunostomy. He has near 100% obstruction of his posterior bulb distally. 06/03/16--the family has decided to utilize [facility] for the patient's surgery. His pain is still an 8 out of 10 in intensity, he has been getting his Protonix routinely and has actually, surprisingly, been able to tolerate clear liquid diet up to this point. TPN is continuing, and his lipase level is up slightly from earlier in the admission. We'll await Dr. Noriega consultation as far as what surgery thinks would be appropriate, and the timing of the surgery. Patient's electrolytes are experiencing some refeeding phenomenon with the TPN. The TPN is being adjusted by the dietitian. Concerning the patient's pain, I think that it might be reasonable choice to use a fentanyl patch 25 to 50 g every 72 hours to cover him for his chronic pain. He does have true pancreatitis with an ulcer in the duodenal bulb as well as LA class D esophagitis all of which I'm sure hurt, as real sources of his pain. Current Visit: Yes (2) Abnormal weight loss Status: Acute Assessment and plan: This patient has lost a significant amount of weight-- currently is down to 87 pounds at the bedside. I suspect this is from decreased intake of adequate calories over time but there may be an element of gastroparesis or bulbar stricturing, gastritis, overall whole host of other factors that might be feeding into the weight loss. Should be able to tell more once the CT scan of the abdomen and upper endoscopy are completed. Risks of endoscopy were reviewed with the patient are include but are not limited to: Bleeding, infection, perforation, cardiac and pulmonary compromise. 05/31/16--this patient has what appears to be posterior bulb duodenal obstruction with a circumferential ulcer. This almost certainly will require surgery for resection. It will not heal on its own in my opinion. This will require a Billroth I or II procedure most likely from my opinion. 06/01/16--no change from the above. 06/02/16--same as above 06/03/16--TPN was started on this patient he is also tolerating his clear liquid diet, surprisingly given the appearance of his duodenum. Unfortunately the feeding is stimulate his pancreas is well. He is experiencing a slight increase in his lipase levels as well as a result. Current Visit: Yes (3) History of pancreatitis Status: Acute Assessment and plan: I've asked for an upper endoscopy to be done in order to look and see how well fluids and solids get out of the stomach into the duodenum. 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 Worsened by the patient's acid load. We'll certainly check and see if there is any evidence of ulcers or inflammation either in the esophagus stomach or duodenum. We will check for Helicobacter pylori. Keep the patient off his Pepto-Bismol. He denies NSAID use. We may need to consult surgery about getting another jejunal feeding tube if the stricture in the duodenum cannot be ballooned open her past appropriately. We need to bear in mind the patient may have an underlying Crohn's disease as well. We will see if the CT scan ordered today demonstrates any evidence of pancreatitis. Right now the lipase level increases unimpressive. 06/01/16-- continued observation advised 06/02/16--same as above. 06/03/16-- Chronic pancreatitis with duodenal stricturing likely is result of scarring in the second portion of the duodenum with dominga ulceration there now. Suggest diverting pass this area versus gastrojejunostomy. This is likely the cause for the patient's weight loss over the last several years. Awaiting Dr. Noriega consultation concerning potential surgeries to be offered. Current Visit: Yes (4) Acute posthemorrhagic anemia Status: Acute Assessment and plan: See above, hematocrit is 29% which is stable for this patient. 06/02/16-- His crit is still 29%, patient appears to be stable, we will try some clear liquids to see how these are tolerated for the patient. 06/03/16--CBC to be ordered for tomorrow. Current Visit: Yes Gastroenterology - PN: Subj Interval history: Patient's pain is still not well controlled, we would something that lasts longer. He has been able to tolerate his clear liquid diet fortunately. Exam (Progress Note) - Constitutional Vitals: Period Temp Pulse Resp BP Sys/Vaca Pulse Ox Last 24 Hr 97.8 F-99 F 57-93 12-22 105-154/63-101 94-100 General appearance: mild distress - Head Head exam: Present: normocephalic, atraumatic - Eye Eye exam: Present: EOMI - Respiratory Respiratory exam: Present: clear to auscultation bilaterally. Absent: rhonchi, stridor, wheezes - Cardiovascular Cardiovascular exam: Present: regular rate and rhythm - GI/Abdominal GI/Abdominal exam: Present: normal bowel sounds Results - Labs CBC & BMP: 06/02/16 05:16 06/03/16 03:45
[2016-06-03] MEDS ORDERED: POTASSIUM PHOSPHATE 15 MMOL in SODIUM CHLORIDE 0.9% 100 ML IV ONE (14:00)
[2016-06-03] MEDS: FAT EMULSION 20% 250 ML IV SCH (14:25)
--- NOTE | 2016-06-03 15:33 | General Surgery Consult Note ---
Assessment and Plan - Time spent with patient Time spent with patient: Greater than 30 minutes (1) Duodenal stricture Status: Acute Assessment and plan: This appears that it is most likely related to peptic ulcer disease. He does have an associated duodenal ulcer. This appears to be causing a relative gastric outlet obstruction. His stomach is large on CT scan. He will need surgical intervention for this. The question will be whether to do an an accompanying acid reduction surgery. Surgery could be made much more difficult because of his previous pseudocyst with cyst gastrostomy. These issues were discussed with the patient. I will discuss the case with Dr. Kay. I did discuss the case with Dr. Gerard he did his previous surgery. I will need to review all of these records. I will check a serum gastrin level. Current Visit: Yes (2) Pancreatic pseudocyst Status: Acute Assessment and plan: There appears to be a focal pseudocyst at the head of the pancreas which may be compressing the duodenum at this location. Current Visit: Yes (3) PUD (peptic ulcer disease) Status: Acute Assessment and plan: There appears to be a duodenal ulcer. We will check a serum gastrin level. Current Visit: Yes History of Present Illness Chief complaint: weight loss History of present illness: Mr. Herman is a 30 year old male With an extensive history of previous pa pancreatitis and pseudocyst who has had previous pancreatic cyst gastrostomy. Patient was recently admitted with significant weight loss nausea and vomiting and severe anemia. Endoscopy showed a duodenal ulcer and a post bulbar stricture. This was finding was confirmed by upper GI series. Patient has a CT scan showing a cystic mass at the duodenum probably representing a pancreatic pseudocyst. The patient describes vague mild abdominal pain in his upper abdomen which is intermittent. He states this this does not really relate to meals and that sometimes he is able to eat without difficulty and other times she has nausea and vomiting and abdominal pain. He had a large amount weight loss but states that he gained some of his weight back the last few months. This weight loss dates back to his pancreatitis about a year ago which she attributed to alcohol. He is not had any alcohol consumption since that time. I cannot locate his records in the computer system from his surgery and previous hospitalizations but he states that this occurred at this facility and he had surgery by Dr. Gerard who does remember this patient. I will try to get records from our office. Home Medications Medication Instructions Recorded Confirmed Type No Known Home Medications [No 05/30/16 05/30/16 History Known Home Medications] Allergies Allergy/AdvReac Type Severity Reaction Status Date / Time No Known Allergies Allergy Verified 05/30/16 03:49 Medical,Surgical,& Family Hx - Medical History Psychological: History of: Anxiety Disorders Neurology: History of: Seizures, Vertigo Respiratory: No history of: Respiratory Problems Gastrointestinal: History of: Gastrointestinal Bleed (this admit), Pancreatitis Musculoskeletal: No history of: Amputation Hematology: History of: Anemia (current this admit), Bleeding Problems (GI bleed this admit) Other: History of: Miscellaneous Medical Problems (Drug and alcohol abuse in the past) - Surgical History Cardiac Surgeries: Patient Denies: Femoral-Popliteal Bypass Graft, Cardiac Catheterization, Cardiac Surgery, Carotid Endarterectomy, Internal Defibrillator, Vascular Access Devices Thoracic Surgeries: Patient denies;: Kidney (Renal Surgery), Lithotripsy, Nephrectomy, Organ Transplant, Lobectomy Neurologic Surgeries: Patient denies: Neurologic Surgery HEENT Surgeries: Patient denies: Carotid Endarterectomy, Eye Surgery, Thyroid Surgery, Tonsilectomy & Adenoidectomy Abdominal Surgeries: Surgical HX of: Abdominal Surgery (Drainage of pancreatic pseudocyst) Patient denies: Splenectomy Reproductive Surgeries: Patient denies;: Cystoscopy, Genitourinary Surgery, Prostate Surgery Orthopedic Surgeries: Patient denies;: Implanted Devices, Orthopedic Surgery, Spinal Surgery, Total Hip Replacement, Total Knee Replacement - Social History Smoking Status: Current every day smoker Frequency of Alcohol Use: None Type of Drug Use: None - Constitutional Constitutional: Present: anorexia, weight loss. Absent: chills, fever(s) - EENT Nose, mouth and throat: Absent: dysphagia, sore throat - Cardiovascular Cardiovascular: Absent: chest pain at rest, chest pain with activity, dyspnea, dyspnea on exertion, syncope - Respiratory Respiratory: Absent: cough, hemoptysis - Gastrointestinal Gastrointestinal: Present: abdominal pain, bloating, early satiety, nausea, vomiting. Absent: diarrhea, hematemesis, hematochezia, melena, jaundice - Genitourinary Genitourinary: Absent: hematuria - Musculoskeletal Musculoskeletal: Absent: back pain - Neurological Neurological: Absent: focal weakness, syncope - Endocrine Endocrine: Absent: polyuria Hematologic/Lymphatic: Absent: easy bleeding, easy bruising Exam - Constitutional Vitals: Period Temp Pulse Resp BP Sys/Vaca Pulse Ox Last 24 Hr 98 F-99.2 F 57-93 13-22 105-152/63-101 94-100 General appearance: no acute distress, no cachectic - Head Head exam: Present: normocephalic - Eye Eye exam: Absent: scleral icterus Pupils: Present: LEONID - ENT Mouth exam: Present: normal voice - Neck Neck exam: Present: trachea midline. Absent: lymphadenopathy, tenderness, thyromegaly - Respiratory Respiratory exam: Present: clear to auscultation bilaterally. Absent: accessory muscle use - Cardiovascular Cardiovascular exam: Present: RRR - GI/Abdominal GI/Abdominal exam: Present: soft. Absent: ascites, distended, guarding, mass, Ken's sign, tenderness, rebound - Extremities Exam Extremities exam: Present: full ROM. Absent: edema - Neurological Exam Neurological exam: Present: alert, oriented X3. Absent: motor sensory deficit Speech: Present: normal - Skin Skin exam: Present: normal color Results - Labs CBC & BMP: 06/02/16 05:16 06/03/16 03:45 Lab Results: I have reviewed the past 24 hour labs - Diagnostic Findings Procedure: CT Abdomen and Pelvis: image reviewed by me, report reviewed by me
[2016-06-04] MEDS: TRACE ELEMENTS (5) 1 ML, MULTIVITAMIN INJ 10 ML in AMINO ACIDS/DEXT/LYTES 5-15% 2,000 ML IV SCH ×2 (00:10→23:03)
[2016-06-04] MEDS: MORPHINE 2 MG/1 ML SYRINGE IV PRN ×2 (00:11→04:08)
--- NOTE | 2016-06-04 06:49 | Gastrointestinal Progress Note ---
Assessment and Plan (1) Upper GI bleed Status: Acute Assessment and plan: I suspect this patient may have peptic ulcer disease, erosive gastritis although Maria De Jesus-Bautista tear is still in the differential and esophagitis as had been seen back in 2010 [place]. Coverage with acid blocking medication twice a day is likely going to improve his situation considerably. We will look in his duodenal channel see if this is open now or whether he needs a repeat jejunal feeding tube versus a dilation of the posterior bulb to help with motility through this region. Nausea and vomiting may be made worse by gastroparesis and we will look for this entity as well. Have asked her CT scan to evaluate if there is a great deal of stricturing or dilation of the small bowel. We will feed depending on findings at upper endoscopy. It is all right that he try some clear liquids at this point in anticipation of the CT scan. 05/31/16-- The upper endoscopy seems that showed complete circumferential obstruction at the level posterior bulb of the duodenum with pigmented spot-- I cannot see an emptying point into the remaining duodenum, there is an LA class D erosive esophagitis 10 cm as well with a Maria De Jesus-Bautista tear at the GE junction in addition. Anyone of these could be the bleeding source for this patient but likely all 3 together. 06/01/16-- barium swallow/upper GI series demonstrates a scant amount of emptying through the post bulbar stricture into the duodenum with a poststenotic dilation and some question of a SMA syndrome present. While this may be seen with a vessel coursing across the duodenum typically this would have an appearance of external compression on the duodenum not a large ulcer without exit in the duodenal bulb. Surgery will almost certainly still be needed. He do not know if the surgeon will elect to simply bypass this area the duodenum and open a gastrojejunostomy vs. duodenal resection and a Billroth II. Surgery likely to evaluate the patient on Friday. TPN continues at this point. 06/02/16--We are waiting Dr. Leone's return tomorrow in order to discuss potential surgery with the patient for some sort of Billroth I or II procedure versus gastrojejunostomy. He has near 100% obstruction of his posterior bulb distally. 06/03/16--the family has decided to utilize [facility] for the patient's surgery. His pain is still an 8 out of 10 in intensity, he has been getting his Protonix routinely and has actually, surprisingly, been able to tolerate clear liquid diet up to this point. TPN is continuing, and his lipase level is up slightly from earlier in the admission. We'll await Dr. Noriega consultation as far as what surgery thinks would be appropriate, and the timing of the surgery. Patient's electrolytes are experiencing some refeeding phenomenon with the TPN. The TPN is being adjusted by the dietitian. Concerning the patient's pain, I think that it might be reasonable choice to use a fentanyl patch 25 to 50 g every 72 hours to cover him for his chronic pain. He does have true pancreatitis with an ulcer in the duodenal bulb as well as LA class D esophagitis all of which I'm sure hurt, as real sources of his pain. 06/04/16--Dr. Noriega has seen the patient and is in agreement with proceeding. Gastrin level pending to look for Corrine-Crow syndrome, and the patient continues to get TPN to help with his malabsorption. He's been able tolerate his clear liquids without difficulty at all. We might consider switching him to a full liquid diet, given the fact that he is on proton pump inhibition now and he has been able tolerate clears and was able to tolerate a full diet at home up until this last week. Obviously, something is able to get out of the stomach as he has continued to have bowel movements each day. Current Visit: Yes (2) Abnormal weight loss Status: Acute Assessment and plan: This patient has lost a significant amount of weight-- currently is down to 87 pounds at the bedside. I suspect this is from decreased intake of adequate calories over time but there may be an element of gastroparesis or bulbar stricturing, gastritis, overall whole host of other factors that might be feeding into the weight loss. Should be able to tell more once the CT scan of the abdomen and upper endoscopy are completed. Risks of endoscopy were reviewed with the patient are include but are not limited to: Bleeding, infection, perforation, cardiac and pulmonary compromise. 05/31/16--this patient has what appears to be posterior bulb duodenal obstruction with a circumferential ulcer. This almost certainly will require surgery for resection. It will not heal on its own in my opinion. This will require a Billroth I or II procedure most likely from my opinion. 06/01/16--no change from the above. 06/02/16--same as above 06/03/16--TPN was started on this patient he is also tolerating his clear liquid diet, surprisingly given the appearance of his duodenum. Unfortunately the feeding is stimulate his pancreas is well. He is experiencing a slight increase in his lipase levels as well as a result. 06/04/16-- We may consider putting him on full liquid diet if surgeon agrees while awaiting surgery. I think he might be able tolerate this. Current Visit: Yes (3) History of pancreatitis Status: Acute Assessment and plan: I've asked for an upper endoscopy to be done in order to look and see how well fluids and solids get out of the stomach into the duodenum. 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 Worsened by the patient's acid load. We'll certainly check and see if there is any evidence of ulcers or inflammation either in the esophagus stomach or duodenum. We will check for Helicobacter pylori. Keep the patient off his Pepto-Bismol. He denies NSAID use. We may need to consult surgery about getting another jejunal feeding tube if the stricture in the duodenum cannot be ballooned open her past appropriately. We need to bear in mind the patient may have an underlying Crohn's disease as well. We will see if the CT scan ordered today demonstrates any evidence of pancreatitis. Right now the lipase level increases unimpressive. 06/01/16-- continued observation advised 06/02/16--same as above. 06/03/16-- Chronic pancreatitis with duodenal stricturing likely is result of scarring in the second portion of the duodenum with dominga ulceration there now. Suggest diverting pass this area versus gastrojejunostomy. This is likely the cause for the patient's weight loss over the last several years. Awaiting Dr. Noriega consultation concerning potential surgeries to be offered. 06/04/16-- suspect he will need some surgery to divert past the second portion the duodenum-- the gastrin level is elevated and we suspect a mass he might require something is radical as a Whipple versus a Billroth I versus II combined with the selective vagotomy. Await gastrin level. He is certainly getting TPN at this time to help deal with his general malnutrition. Other than this issue patient appears generally healthy. Current Visit: Yes (4) Acute posthemorrhagic anemia Status: Acute Assessment and plan: See above, hematocrit is 29% which is stable for this patient. 06/02/16-- His crit is still 29%, patient appears to be stable, we will try some clear liquids to see how these are tolerated for the patient. 06/03/16--CBC to be ordered for tomorrow. 06/04/16--CBC is pending. Current Visit: Yes Gastroenterology - PN: Subj Interval history: The patient feels like he is doing well with clear liquid diet. In discussions with him it seems like he was able to tolerate solids at home with a single episode of severe vomiting per week over these last several years. I suspect that these probably had duodenal narrowing since that last surgery with perhaps a development of a ulcer on top of this versus chronic ulceration. Gastrin level is an excellent idea. Exam (Progress Note) - Constitutional Vitals: Period Temp Pulse Resp BP Sys/Vaca Pulse Ox Last 24 Hr 98.8 F-100.1 F 58-93 13-24 105-147/66-94 94-100 General appearance: no acute distress - Head Head exam: Present: normocephalic - Eye Eye exam: Present: EOMI Pupils: Present: LEONID - Respiratory Respiratory exam: Present: clear to auscultation bilaterally. Absent: rhonchi, stridor - Cardiovascular Cardiovascular exam: Present: regular rate and rhythm - GI/Abdominal GI/Abdominal exam: Present: normal bowel sounds, soft. Absent: tenderness - Neurological Exam Neurological exam: Present: alert, oriented X3, CN II-XII intact. Absent: motor sensory deficit - Psychiatric Psychiatric exam: Present: normal affect, normal mood - Skin Skin exam: Present: warm Results - Labs CBC & BMP: 06/02/16 05:16 06/03/16 03:45
[2016-06-04 07:30] LABS: Basophils % 0.4 % (0.0-0.8); Eosinophils # 0.1 10*3/uL (0.0-0.87); Eosinophils % 1.5 % (0.00-10.9); Hematocrit 30.3 VOL% (42.0-52.0); Hemoglobin 9.4 GM/DL (14.0-18.0); Immature Granulocytes % 0.4 %; Immature Granulocytes Absolute 0.04 #; Lymphocytes # 1.4 10*3/uL (1.4-4.0); Lymphocytes % 15.9 % (21.2-54.2); Mean Corpuscular Hemoglobin 25 PG (27-34); Mean Corpuscular Volume 81.7 FL (87-102); Mean Platelet Volume 9.9 FL (9.6-12.0); Monocytes # 0.8 10*3/uL (0.11-0.8); Monocytes % 8.6 % (1.7-12.7); Neutrophils # 6.6 10*3/uL (1.4-7.4); Neutrophils % 73.2 % (38.7-73.9); Platelet Count 167 T/CUMM (130-400); Red Blood Count 3.71 MC/CUMM (3.8-5.5); Red Cell Distribution Width 17.9 % (9.3-17.3); White Blood Count 9.1 T/CUMM (4-12)
--- NOTE | 2016-06-04 07:46 | Family Practice Progress Note ---
Family Practice - PN: Subj Interval history: Patient states he is doing better this morning and is tolerating liquids and ate some sherbet last night. He still on intravenous alimentation. He has been seen by surgery and is being evaluated for corrective surgery. He understands the need and the difficulty of this. Is not having any further nausea and vomiting and his hematocrit is stable. Exam (Progress Note) - Constitutional Vitals: Period Temp Pulse Resp BP Sys/Vaca Pulse Ox Last 24 Hr 98.8 F-100.1 F 58-93 13-24 112-147/66-94 94-100 Exam: Objective reveals an emaciated white male who certainly looks better this morning. Patient is awake and alert and in good spirits. Cardiovascular: Heart rate is regular without murmurs Respiratory: The lungs clear to auscultation bilaterally Abdomen: The abdomen is scaphoid and diffusely tender directly. There is no rebound or guarding. Extremities: There is no calf swelling or tenderness. Results - Labs CBC & BMP: 06/04/16 07:24 06/03/16 03:45 Lab Results: I have reviewed the past 24 hour labs Assessment and Plan (1) Anemia Status: Resolved Assessment and plan: 05/30/2016: Transfusion has been ordered emergently. 06/03/2016: Patient's hematocrit is 29% this morning. Current Visit: Yes (2) Upper GI bleed Status: Acute Assessment and plan: 05/30/2016: Patient will be admitted to intensive care and Dr. Cervantes has been notified. IV Protonix has been ordered. 06/03/2016: No further bleeding is noted. Patient has duodenal ulcer and extrinsic narrowing of his duodenum 06/04/2016: Patient is being evaluated for surgical intervention. Patient is stable and can be moved to the floor. Current Visit: Yes
[2016-06-04] MEDS: fentaNYL 50 MCG/HR PATCH TRANSDERM SCH (08:35)
[2016-06-04] MEDS: PANTOPRAZOLE 40 MG VIAL IV SCH ×2 (08:35→23:06)
--- NOTE | 2016-06-04 11:04 | Physician Query Form ---
CLICK EDIT DOCUMENT TO SELECT QUERY ANSWER --> OK --> SIGN Catie Reyes RN, CCDS Certified Clinical Wildlife Control Agent W) [phone] (f) [phone] [email or web address]: Make your selection(s) from the choices in EACH section by typing an "x" and enter comments in the comment section. Please use your independent medical judgment in providing your response. This request does not imply that any particular answer is desired or expected. CLINICAL INDICATORS: (Providers should not edit this section) Height: 5' 8" Weight: 43.182 Kg Cathodic Protection Technician BMI: 13.8# % Body weight: Nutritional supplements: Protozoologist notes: Other clinical notes: The medical record indicates that the patient was admitted with GI bleeding, history of chronic pancreatitis, BMI of 13.8, Emaciation, Per dietary notes: "Loss of Body Fat", "Loss of Muscle Mass", "unable to consume significant amounts po 2nd to chronic N/V", Maria De Jesus Bautista tear at EG junction and the patient was placed on TPN. Based on the above, which following choice most accurately represents the patient's nutritional status? ( ) Malnutrition ( ) mild ( ) moderate ( ) severe ( ) Protein calorie malnutrition ( ) mild ( ) moderate ( ) severe ( ) Emaciation due to malnutrition ( ) Nutritional marasmus ( ) Cachexia ( ) Underweight ( ) No nutritional deficiency ( ) Other, please specify: ( ) Clinically unable to determine Mild Malnutrition (BMI < 18.5, % Normal Body Weight 85-95%) Moderate Malnutrition (BMI < 17, % Normal Body Weight 75-85%) Severe Malnutrition (BMI < 16, % Normal Body Weight < 75%) Source: Dorothea COMMENTS: Use of terms such as suspected, likely, or probable (associated with a specific diagnosis that is being evaluated, monitored, or treated as if it exists) are acceptable and can be restated in the discharge summary if not ruled out. MTDD
[2016-06-04] MEDS: FAT EMULSION 20% 250 ML IV SCH (14:56)
[2016-06-05] MEDS: MORPHINE 2 MG/1 ML SYRINGE IV PRN ×5 (00:54→23:54)
--- NOTE | 2016-06-05 08:30 | Gastrointestinal Progress Note ---
Assessment and Plan (1) Upper GI bleed Status: Acute Assessment and plan: I suspect this patient may have peptic ulcer disease, erosive gastritis although Maria De Jesus-Bautista tear is still in the differential and esophagitis as had been seen back in 2010 [place]. Coverage with acid blocking medication twice a day is likely going to improve his situation considerably. We will look in his duodenal channel see if this is open now or whether he needs a repeat jejunal feeding tube versus a dilation of the posterior bulb to help with motility through this region. Nausea and vomiting may be made worse by gastroparesis and we will look for this entity as well. Have asked her CT scan to evaluate if there is a great deal of stricturing or dilation of the small bowel. We will feed depending on findings at upper endoscopy. It is all right that he try some clear liquids at this point in anticipation of the CT scan. 05/31/16-- The upper endoscopy seems that showed complete circumferential obstruction at the level posterior bulb of the duodenum with pigmented spot-- I cannot see an emptying point into the remaining duodenum, there is an LA class D erosive esophagitis 10 cm as well with a Maria De Jesus-Bautista tear at the GE junction in addition. Anyone of these could be the bleeding source for this patient but likely all 3 together. 06/01/16-- barium swallow/upper GI series demonstrates a scant amount of emptying through the post bulbar stricture into the duodenum with a poststenotic dilation and some question of a SMA syndrome present. While this may be seen with a vessel coursing across the duodenum typically this would have an appearance of external compression on the duodenum not a large ulcer without exit in the duodenal bulb. Surgery will almost certainly still be needed. He do not know if the surgeon will elect to simply bypass this area the duodenum and open a gastrojejunostomy vs. duodenal resection and a Billroth II. Surgery likely to evaluate the patient on Friday. TPN continues at this point. 06/02/16--We are waiting Dr. Leone's return tomorrow in order to discuss potential surgery with the patient for some sort of Billroth I or II procedure versus gastrojejunostomy. He has near 100% obstruction of his posterior bulb distally. 06/03/16--the family has decided to utilize [facility] for the patient's surgery. His pain is still an 8 out of 10 in intensity, he has been getting his Protonix routinely and has actually, surprisingly, been able to tolerate clear liquid diet up to this point. TPN is continuing, and his lipase level is up slightly from earlier in the admission. We'll await Dr. Noriega consultation as far as what surgery thinks would be appropriate, and the timing of the surgery. Patient's electrolytes are experiencing some refeeding phenomenon with the TPN. The TPN is being adjusted by the dietitian. Concerning the patient's pain, I think that it might be reasonable choice to use a fentanyl patch 25 to 50 g every 72 hours to cover him for his chronic pain. He does have true pancreatitis with an ulcer in the duodenal bulb as well as LA class D esophagitis all of which I'm sure hurt, as real sources of his pain. 06/04/16--Dr. Noriega has seen the patient and is in agreement with proceeding. Gastrin level pending to look for Corrine-Crow syndrome, and the patient continues to get TPN to help with his malabsorption. He's been able tolerate his clear liquids without difficulty at all. We might consider switching him to a full liquid diet, given the fact that he is on proton pump inhibition now and he has been able tolerate clears and was able to tolerate a full diet at home up until this last week. Obviously, something is able to get out of the stomach as he has continued to have bowel movements each day. 06/05/16--Dr. Noriega is discussing surgical options with the patient. Gastrin level was sent off on 06/03/16. The patient continues on TPN and has been advanced to a full liquid diet which she is tolerating well. Unfortunately he is eaten this morning and likely will not be able to have his surgery yet today. His pain is down to a 5 out of 10 in intensity and he is otherwise doing well. The patient was placed on transdermal patch yesterday and does seem more comfortable perhaps we can start to wean his IV narcotics in the near future. After calling male out some the laboratory it seems the gastrin level got sent off to the [facility] yesterday and has turnaround time of about 3 days. [place] in the lab is looking for an exact time that it might be back. Current Visit: Yes (2) Abnormal weight loss Status: Acute Assessment and plan: This patient has lost a significant amount of weight-- currently is down to 87 pounds at the bedside. I suspect this is from decreased intake of adequate calories over time but there may be an element of gastroparesis or bulbar stricturing, gastritis, overall whole host of other factors that might be feeding into the weight loss. Should be able to tell more once the CT scan of the abdomen and upper endoscopy are completed. Risks of endoscopy were reviewed with the patient are include but are not limited to: Bleeding, infection, perforation, cardiac and pulmonary compromise. 05/31/16--this patient has what appears to be posterior bulb duodenal obstruction with a circumferential ulcer. This almost certainly will require surgery for resection. It will not heal on its own in my opinion. This will require a Billroth I or II procedure most likely from my opinion. 06/01/16--no change from the above. 06/02/16--same as above 06/03/16--TPN was started on this patient he is also tolerating his clear liquid diet, surprisingly given the appearance of his duodenum. Unfortunately the feeding is stimulate his pancreas is well. He is experiencing a slight increase in his lipase levels as well as a result. 06/04/16-- We may consider putting him on full liquid diet if surgeon agrees while awaiting surgery. I think he might be able tolerate this. 06/05/16--the patient is tolerating his diet well and still getting TPN. He is likely to benefit from both given his extremely malnutrition. Current Visit: Yes (3) History of pancreatitis Status: Acute Assessment and plan: I've asked for an upper endoscopy to be done in order to look and see how well fluids and solids get out of the stomach into the duodenum. 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 Worsened by the patient's acid load. We'll certainly check and see if there is any evidence of ulcers or inflammation either in the esophagus stomach or duodenum. We will check for Helicobacter pylori. Keep the patient off his Pepto-Bismol. He denies NSAID use. We may need to consult surgery about getting another jejunal feeding tube if the stricture in the duodenum cannot be ballooned open her past appropriately. We need to bear in mind the patient may have an underlying Crohn's disease as well. We will see if the CT scan ordered today demonstrates any evidence of pancreatitis. Right now the lipase level increases unimpressive. 06/01/16-- continued observation advised 06/02/16--same as above. 06/03/16-- Chronic pancreatitis with duodenal stricturing likely is result of scarring in the second portion of the duodenum with dominga ulceration there now. Suggest diverting pass this area versus gastrojejunostomy. This is likely the cause for the patient's weight loss over the last several years. Awaiting Dr. Noriega consultation concerning potential surgeries to be offered. 06/04/16-- suspect he will need some surgery to divert past the second portion the duodenum-- the gastrin level is elevated and we suspect a mass he might require something is radical as a Whipple versus a Billroth I versus II combined with the selective vagotomy. Await gastrin level. He is certainly getting TPN at this time to help deal with his general malnutrition. Other than this issue patient appears generally healthy. 06/05/16--we'll check his lipase levels tomorrow and see if the extra nutrition is driving these up, especially given his exposure to intralipids. Current Visit: Yes (4) Acute posthemorrhagic anemia Status: Acute Assessment and plan: See above, hematocrit is 29% which is stable for this patient. 06/02/16-- His crit is still 29%, patient appears to be stable, we will try some clear liquids to see how these are tolerated for the patient. 06/03/16--CBC to be ordered for tomorrow. 06/04/16--CBC is pending. 06/05/16--CBC demonstrates stability of the patient's hematocrit currently of 30% . I suspect that a fair amount of this is nutritional, in addition to the peptic ulcer disease seen in the duodenal bulb and erosive gastritis. Current Visit: Yes Gastroenterology - PN: Subj Interval history: Unfortunately, the patient is already some candy this morning but has not yet started on breakfast. He did chew his up and swallow it so technically it is a solid. Dr. Noriega and I have been discussing this patient's surgery, i.e., whether to proceed with simple gastrojejunostomy versus a Art-en-Y to protect him from bile acids to some degree. The patient, his mother and Dr. Noriega will be discussing this shortly. Unfortunately the remaining pseudocyst is still a factor and there is some concern spot duodenal stump developing poor perfusion/bacterial overgrowth/blowout. His abdominal pain status post pain medication is down to 5 out of 10 in intensity. His had no further nausea or vomiting with the full liquid diet Exam (Progress Note) - Constitutional Vitals: Period Temp Pulse Resp BP Sys/Vaca Pulse Ox Last 24 Hr 97.2 F-98.5 F 73-81 18-20 99-126/58-71 98-100 General appearance: no acute distress - Head Head exam: Present: normocephalic, atraumatic - Eye Pupils: Present: LEONID - Respiratory Respiratory exam: Present: clear to auscultation bilaterally. Absent: rhonchi, stridor, wheezes - Cardiovascular Cardiovascular exam: Present: regular rate and rhythm - GI/Abdominal GI/Abdominal exam: Present: normal bowel sounds, tenderness (moderate right upper quadrant/epigastric tenderness to palpation), soft. Absent: distended, rebound - Extremities Exam Extremities exam: Absent: edema - Neurological Exam Neurological exam: Present: alert, oriented X3 - Psychiatric Psychiatric exam: Present: normal affect, normal mood - Skin Skin exam: Present: warm Results - Labs CBC & BMP: 06/04/16 07:24 06/03/16 03:45
--- NOTE | 2016-06-05 08:38 | Family Practice Progress Note ---
Family Practice - PN: Subj Interval history: Patient states she is feeling much better and is ready for some solid food. He has been eating everything he can get his hands on. He states his abdominal pain is still present but much improved. He is being evaluated by Dr. Noriega for surgical remedy of this difficulty. Exam (Progress Note) - Constitutional Vitals: Period Temp Pulse Resp BP Sys/Vaca Pulse Ox Last 24 Hr 97.2 F-98.5 F 71-81 18-20 99-126/58-79 98-100 Exam: Objective reveals an emaciated white male who certainly looks better this morning. Patient is awake and alert and in good spirits. Patient states he is hungry. Cardiovascular: Heart rate is regular without murmurs Respiratory: The lungs clear to auscultation bilaterally Abdomen: The abdomen is scaphoid and diffusely tender directly. There is no rebound or guarding. Extremities: There is no calf swelling or tenderness. Results - Labs CBC & BMP: 06/04/16 07:24 06/03/16 03:45 Lab Results: I have reviewed the past 24 hour labs Assessment and Plan (1) Anemia Status: Resolved Assessment and plan: 05/30/2016: Transfusion has been ordered emergently. 06/03/2016: Patient's hematocrit is 29% this morning. Current Visit: Yes (2) Upper GI bleed Status: Acute Assessment and plan: 05/30/2016: Patient will be admitted to intensive care and Dr. Cervantes has been notified. IV Protonix has been ordered. 06/03/2016: No further bleeding is noted. Patient has duodenal ulcer and extrinsic narrowing of his duodenum 06/04/2016: Patient is being evaluated for surgical intervention. Patient is stable and can be moved to the floor. 06/05/2016: But certainly clinically improving, patient is being evaluated by Dr. Noriega for surgical remedy. Current Visit: Yes
[2016-06-05] MEDS: PANTOPRAZOLE 40 MG VIAL IV SCH ×2 (08:45→22:00)
--- NOTE | 2016-06-05 09:17 | General Surgery Progress Note ---
Assessment and Plan (1) Duodenal stricture Status: Acute Assessment and plan: This appears that it is most likely related to peptic ulcer disease. He does have an associated duodenal ulcer. This appears to be causing a relative gastric outlet obstruction. His stomach is large on CT scan. He will need surgical intervention for this. The question will be whether to do an an accompanying acid reduction surgery. Surgery could be made much more difficult because of his previous pseudocyst with cyst gastrostomy. These issues were discussed with the patient. I will discuss the case with Dr. Kay. I did discuss the case with Dr. Gerard he did his previous surgery. I will need to review all of these records. I will check a serum gastrin level. 06/05: I have reviewed all of his studies and had long discussions with my partners regarding his case and also with Dr. Kay and Dr. Peguero and with the patient and his mother. I feel the best approach with him would be to do a bypass procedure to relieve his gastric outlet obstruction. He has multiple potential sites of obstruction at the duodenum and head of his pancreas including the post bulbar stricture the pseudocyst at the third portion of the duodenum and also potential SMA syndrome third to fourth portion of the duodenum. I feel that addressing the peptic ulcer disease only could create a problem because of obstruction further downstream also doing a gastric resected procedure the put him at risk of duodenal stump blowout if there is potential obstruction at the SMA level or at the pancreatic head. Reviewing his CT scan suggest a good deal of chronic inflammation in this location but I think would make a resected procedure very treacherous. I discussed gastrojejunostomy with he and his mother and they agree to this approach. I think that his peptic ulcer disease can be treated medically since he has not been on medical treatment for previously. I think that we are less likely to have side effects with this approach however he understands that he may need further surgery or that he may have gastric emptying problem still from gastric atony with his large redundant stomach. We will look at the timing of surgery over the next day or 2. He has eaten this morning so I think it would not be possible to do this today. The procedure and risks were outlined in great detail with the patient and his mother. I have also offered referral to [facility] if they wish and they have declined this option. Current Visit: Yes (2) Pancreatic pseudocyst Status: Acute Assessment and plan: There appears to be a focal pseudocyst at the head of the pancreas which may be compressing the duodenum at this location. Current Visit: Yes (3) PUD (peptic ulcer disease) Status: Acute Assessment and plan: There appears to be a duodenal ulcer. We will check a serum gastrin level. Current Visit: Yes Subjective Patient reports: Present: feels better. Absent: still having pain, nausea, vomiting, shortness of breath Exam - Constitutional Vitals: Period Temp Pulse Resp BP Sys/Vaca Pulse Ox Last 24 Hr 97.2 F-98.5 F 71-81 18-20 99-126/58-79 98-100 General appearance: no acute distress, cachectic - Respiratory Respiratory exam: Absent: accessory muscle use - GI/Abdominal GI/Abdominal exam: Present: soft. Absent: distended, tenderness, rebound Results - Labs CBC & BMP: 06/04/16 07:24 06/03/16 03:45 Lab Results: I have reviewed the past 24 hour labs
--- NOTE | 2016-06-05 11:04 | Physician Query Form ---
CLICK EDIT DOCUMENT TO SELECT QUERY ANSWER --> OK --> SIGN Catie Reyes RN, CCDS Certified Clinical Conservation Of Resources Commissioner W) [phone] (f) [phone] [email or web address] PROVIDERS: Make your selection(s) from the choices in EACH section by typing an "x" and enter comments in the comment section. Please use your independent medical judgment in providing your response. This request does not imply that any particular answer is desired or expected. 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 Based on the above, which following choice most accurately represents the patient's nutritional status? ( ) Malnutrition ( ) mild ( ) moderate ( ) severe ( ) Protein calorie malnutrition ( ) mild ( ) moderate ( ) severe ( ) Emaciation due to malnutrition ( ) Nutritional marasmus (x ) Cachexia ( ) Underweight ( ) No nutritional deficiency ( ) Other, please specify: ( ) Clinically unable to determine Mild Malnutrition (BMI < 18.5, % Normal Body Weight 85-95%) Moderate Malnutrition (BMI < 17, % Normal Body Weight 75-85%) Severe Malnutrition (BMI < 16, % Normal Body Weight < 75%) Source: Dorothea COMMENTS: Use of terms such as suspected, likely, or probable (associated with a specific diagnosis that is being evaluated, monitored, or treated as if it exists) are acceptable and can be restated in the discharge summary if not ruled out. MTDD
[2016-06-06] MEDS: MORPHINE 2 MG/1 ML SYRINGE IV PRN ×5 (04:38→21:05)
[2016-06-06 05:49] LABS: Calcium 7.3 MG/DL (8.5-10.1); Magnesium 1.9 MG/DL (1.8-2.4); Osmolality,Calculated 283.8 MOS/KG (273-304); Phosphorous 1.2 MG/DL (2.5-4.9); Potassium 4.2 MMOL/L (3.5-5.1)
--- NOTE | 2016-06-06 07:57 | Family Practice Progress Note ---
Family Practice - PN: Subj Interval history: Patient states he is doing quite well and is ready for surgery today. He is scheduled for a gastrojejunostomy today. This was explained at length to him and family by Dr. Hari TY and is ready to proceed. He fully understands the risk of the procedure. Exam (Progress Note) - Constitutional Vitals: Period Temp Pulse Resp BP Sys/Vaca Pulse Ox Last 24 Hr 96.4 F-99.2 F 71-88 18-20 109-119/56-79 97-100 Exam: Objective reveals an emaciated white male who certainly looks better this morning. Patient is awake and alert and in good spirits. He is ready for surgery. Cardiovascular: Heart rate is regular without murmurs Respiratory: The lungs clear to auscultation bilaterally Abdomen: The abdomen is scaphoid and diffusely tender directly. There is no rebound or guarding. Extremities: There is no calf swelling or tenderness. Results - Labs CBC & BMP: 06/04/16 07:24 06/06/16 04:40 Lab Results: I have reviewed the past 24 hour labs Assessment and Plan (1) Anemia Status: Resolved Assessment and plan: 05/30/2016: Transfusion has been ordered emergently. 06/03/2016: Patient's hematocrit is 29% this morning. Current Visit: Yes (2) Upper GI bleed Status: Acute Assessment and plan: 05/30/2016: Patient will be admitted to intensive care and Dr. Cervantes has been notified. IV Protonix has been ordered. 06/03/2016: No further bleeding is noted. Patient has duodenal ulcer and extrinsic narrowing of his duodenum 06/04/2016: Patient is being evaluated for surgical intervention. Patient is stable and can be moved to the floor. 06/05/2016: But certainly clinically improving, patient is being evaluated by Dr. Noriega for surgical remedy. Current Visit: Yes (3) Duodenal stricture Status: Acute Assessment and plan: 06/06/2016: Patient scheduled for surgery today. Current Visit: Yes Quality Measures - VTE Contraindication to Pharmacological VTE Prophylaxis: High Risk of Bleeding
[2016-06-06] MEDS: PANTOPRAZOLE 40 MG VIAL IV SCH ×2 (08:33→21:04)
--- NOTE | 2016-06-06 11:40 | Event Note ---
dr montse TY is running long in OR today and pt opting to move surgery til in the morning. dr montse TY and surgery have been notified.
--- NOTE | 2016-06-06 16:32 | Gastrointestinal Progress Note ---
Assessment and Plan (1) Upper GI bleed Status: Acute Assessment and plan: I suspect this patient may have peptic ulcer disease, erosive gastritis although Maria De Jesus-Bautista tear is still in the differential and esophagitis as had been seen back in 2010 [place]. Coverage with acid blocking medication twice a day is likely going to improve his situation considerably. We will look in his duodenal channel see if this is open now or whether he needs a repeat jejunal feeding tube versus a dilation of the posterior bulb to help with motility through this region. Nausea and vomiting may be made worse by gastroparesis and we will look for this entity as well. Have asked her CT scan to evaluate if there is a great deal of stricturing or dilation of the small bowel. We will feed depending on findings at upper endoscopy. It is all right that he try some clear liquids at this point in anticipation of the CT scan. 05/31/16-- The upper endoscopy seems that showed complete circumferential obstruction at the level posterior bulb of the duodenum with pigmented spot-- I cannot see an emptying point into the remaining duodenum, there is an LA class D erosive esophagitis 10 cm as well with a Maria De Jesus-Bautista tear at the GE junction in addition. Anyone of these could be the bleeding source for this patient but likely all 3 together. 06/01/16-- barium swallow/upper GI series demonstrates a scant amount of emptying through the post bulbar stricture into the duodenum with a poststenotic dilation and some question of a SMA syndrome present. While this may be seen with a vessel coursing across the duodenum typically this would have an appearance of external compression on the duodenum not a large ulcer without exit in the duodenal bulb. Surgery will almost certainly still be needed. He do not know if the surgeon will elect to simply bypass this area the duodenum and open a gastrojejunostomy vs. duodenal resection and a Billroth II. Surgery likely to evaluate the patient on Friday. TPN continues at this point. 06/02/16--We are waiting Dr. Leone's return tomorrow in order to discuss potential surgery with the patient for some sort of Billroth I or II procedure versus gastrojejunostomy. He has near 100% obstruction of his posterior bulb distally. 06/03/16--the family has decided to utilize Viraj Hari the IIIrd for the patient's surgery. His pain is still an 8 out of 10 in intensity, he has been getting his Protonix routinely and has actually, surprisingly, been able to tolerate clear liquid diet up to this point. TPN is continuing, and his lipase level is up slightly from earlier in the admission. We'll await Dr. Noriega consultation as far as what surgery thinks would be appropriate, and the timing of the surgery. Patient's electrolytes are experiencing some refeeding phenomenon with the TPN. The TPN is being adjusted by the dietitian. Concerning the patient's pain, I think that it might be reasonable choice to use a fentanyl patch 25 to 50 g every 72 hours to cover him for his chronic pain. He does have true pancreatitis with an ulcer in the duodenal bulb as well as LA class D esophagitis all of which I'm sure hurt, as real sources of his pain. 06/04/16--Dr. Noriega has seen the patient and is in agreement with proceeding. Gastrin level pending to look for Corrine-Crow syndrome, and the patient continues to get TPN to help with his malabsorption. He's been able tolerate his clear liquids without difficulty at all. We might consider switching him to a full liquid diet, given the fact that he is on proton pump inhibition now and he has been able tolerate clears and was able to tolerate a full diet at home up until this last week. Obviously, something is able to get out of the stomach as he has continued to have bowel movements each day. 06/05/16--Dr. Noriega is discussing surgical options with the patient. Gastrin level was sent off on 06/03/16. The patient continues on TPN and has been advanced to a full liquid diet which she is tolerating well. Unfortunately he is eaten this morning and likely will not be able to have his surgery yet today. His pain is down to a 5 out of 10 in intensity and he is otherwise doing well. The patient was placed on transdermal patch yesterday and does seem more comfortable perhaps we can start to wean his IV narcotics in the near future. After calling male out some the laboratory it seems the gastrin level got sent off to the [facility] yesterday and has turnaround time of about 3 days. Abimbola in the lab is looking for an exact time that it might be back. 06/06/16--gastrin level was reassuringly normal at 47. Awaiting gastric surgery to bypass the duodenal obstruction likely with a Art-en-Y anastomosis. Current Visit: Yes (2) Abnormal weight loss Status: Acute Assessment and plan: This patient has lost a significant amount of weight-- currently is down 87 pounds at the bedside from his baseline weight. I suspect this is from decreased intake of adequate calories over time but there may be an element of gastroparesis or bulbar stricturing, gastritis, overall whole host of other factors that might be feeding into the weight loss. Should be able to tell more once the CT scan of the abdomen and upper endoscopy are completed. Risks of endoscopy were reviewed with the patient are include but are not limited to: Bleeding, infection, perforation, cardiac and pulmonary compromise. 05/31/16--this patient has what appears to be posterior bulb duodenal obstruction with a circumferential ulcer. This almost certainly will require surgery for resection. It will not heal on its own in my opinion. This will require a Billroth I or II procedure most likely from my opinion. 06/01/16--no change from the above. 06/02/16--same as above 06/03/16--TPN was started on this patient he is also tolerating his clear liquid diet, surprisingly given the appearance of his duodenum. Unfortunately the feeding is stimulate his pancreas is well. He is experiencing a slight increase in his lipase levels as well as a result. 06/04/16-- We may consider putting him on full liquid diet if surgeon agrees while awaiting surgery. I think he might be able tolerate this. 06/05/16--the patient is tolerating his diet well and still getting TPN. He is likely to benefit from both given he is extremely malnourished. 06/06/16--nothing by mouth for surgery this morning. Current Visit: Yes (3) History of pancreatitis Status: Acute Assessment and plan: I've asked for an upper endoscopy to be done in order to look and see how well fluids and solids get out of the stomach into the duodenum. 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 Worsened by the patient's acid load. We'll certainly check and see if there is any evidence of ulcers or inflammation either in the esophagus stomach or duodenum. We will check for Helicobacter pylori. Keep the patient off his Pepto-Bismol. He denies NSAID use. We may need to consult surgery about getting another jejunal feeding tube if the stricture in the duodenum cannot be ballooned open her past appropriately. We need to bear in mind the patient may have an underlying Crohn's disease as well. We will see if the CT scan ordered today demonstrates any evidence of pancreatitis. Right now the lipase level increases unimpressive. 06/01/16-- continued observation advised 06/02/16--same as above. 06/03/16-- Chronic pancreatitis with duodenal stricturing likely is result of scarring in the second portion of the duodenum with dominga ulceration there now. Suggest diverting pass this area versus gastrojejunostomy. This is likely the cause for the patient's weight loss over the last several years. Awaiting Dr. Noriega consultation concerning potential surgeries to be offered. 06/04/16-- suspect he will need some surgery to divert past the second portion the duodenum-- the gastrin level is elevated and we suspect a mass he might require something is radical as a Whipple versus a Billroth I versus II combined with the selective vagotomy. Await gastrin level. He is certainly getting TPN at this time to help deal with his general malnutrition. Other than this issue patient appears generally healthy. 06/05/16--we'll check his lipase levels tomorrow and see if the extra nutrition is driving these up, especially given his exposure to intralipids. 06/06/16--the gastrin level is normal, this is not is Corrine-Crow syndrome. Dr. Noriega would like to stay away from the anchors if possible during today's surgery, especially given the fact this is fused to the stomach with his previous cysygastroscopy. Triglyceride levels are actually normal on the intralipids. Current Visit: Yes (4) Acute posthemorrhagic anemia Status: Acute Assessment and plan: See above, hematocrit is 29% which is stable for this patient. 06/02/16-- His crit is still 29%, patient appears to be stable, we will try some clear liquids to see how these are tolerated for the patient. 06/03/16--CBC to be ordered for tomorrow. 06/04/16--CBC is pending. 06/05/16--CBC demonstrates stability of the patient's hematocrit currently of 30% . I suspect that a fair amount of this is nutritional, in addition to the peptic ulcer disease seen in the duodenal bulb and erosive gastritis. 06/06/16--we'll simply observe this for the present time. Current Visit: Yes Gastroenterology - PN: Subj Interval history: No new complaints this morning, ready for surgery. Abdominal pain was slightly better on the fentanyl patch. Exam (Progress Note) - Constitutional Vitals: Period Temp Pulse Resp BP Sys/Vaca Pulse Ox Last 24 Hr 96.4 F-99.0 F 71-88 18-20 113-132/66-79 100-100 General appearance: no acute distress - Head Head exam: Present: normocephalic - Eye Eye exam: Present: EOMI Pupils: Present: LEONID - Respiratory Respiratory exam: Present: clear to auscultation bilaterally - Cardiovascular Cardiovascular exam: Present: regular rate and rhythm - GI/Abdominal GI/Abdominal exam: Present: normal bowel sounds, tenderness (moderate epigastric tenderness), soft. Absent: rebound - Extremities Exam Extremities exam: Absent: edema - Neurological Exam Neurological exam: Present: alert, oriented X3. Absent: CN II-XII intact, motor sensory deficit - Psychiatric Psychiatric exam: Present: normal affect, normal mood - Skin Skin exam: Present: warm Results - Labs CBC & BMP: 06/04/16 07:24 06/06/16 04:40
--- NOTE | 2016-06-06 16:46 | Event Note ---
I had to delay his surgery until tomorrow because of scheduling issues in the operating room. We will do it in the morning. I discussed the case with him once again and answered any questions he might have.
[2016-06-07] MEDS: MORPHINE 2 MG/1 ML SYRINGE IV PRN ×7 (01:02→22:40)
[2016-06-07] MEDS: LACTATED RINGERS 1,000 ML IV SCH (07:34)
--- NOTE | 2016-06-07 07:57 | Family Practice Progress Note ---
Family Practice - PN: Subj Interval history: Patient's surgery was delayed until this morning. Patient is artery been carried to the operating room prior to my rounds. I will follow-up with him postop. Exam (Progress Note) - Constitutional Vitals: Period Temp Pulse Resp BP Sys/Vaca Pulse Ox Last 24 Hr 97.1 F-99.7 F 71-88 16-20 118-134/66-81 99-100 Results - Labs CBC & BMP: 06/04/16 07:24 06/06/16 04:40 Assessment and Plan (1) Anemia Status: Resolved Assessment and plan: 05/30/2016: Transfusion has been ordered emergently. 06/03/2016: Patient's hematocrit is 29% this morning. Current Visit: Yes (2) Upper GI bleed Status: Acute Assessment and plan: 05/30/2016: Patient will be admitted to intensive care and Dr. Cervantes has been notified. IV Protonix has been ordered. 06/03/2016: No further bleeding is noted. Patient has duodenal ulcer and extrinsic narrowing of his duodenum 06/04/2016: Patient is being evaluated for surgical intervention. Patient is stable and can be moved to the floor. 06/05/2016: But certainly clinically improving, patient is being evaluated by Dr. Noriega for surgical remedy. Current Visit: Yes (3) Duodenal stricture Status: Acute Assessment and plan: 06/06/2016: Patient scheduled for surgery today. Current Visit: Yes Quality Measures - VTE Contraindication to Pharmacological VTE Prophylaxis: High Risk of Bleeding
[2016-06-07] MEDS ORDERED: GLYCOPYRROLATE 0.4 MG/2 ML VIAL ONE (09:13)
[2016-06-07] MEDS ORDERED: ROCURONIUM 100 MG/10 ML VIAL IV ONE (09:13)
[2016-06-07] MEDS ORDERED: SUCCINYLCHOLINE 200 MG/10 ML VIAL ONE (09:13)
[2016-06-07] MEDS ORDERED: PHENYLEPHRINE 1 MG/10 ML SYRINGE IV ONE (09:13)
[2016-06-07] MEDS ORDERED: ONDANSETRON 4 MG/2 ML VIAL ONE ×2 (09:13→10:42)
[2016-06-07] MEDS ORDERED: PROPOFOL 200 MG/20 ML VIAL IV ONE (09:13)
[2016-06-07] MEDS ORDERED: NEOSTIGMINE 10 MG/10 ML VIAL ONE (09:13)
[2016-06-07] MEDS ORDERED: LIDOCAINE 2% 5 ML VIAL ONE (09:13)
--- NOTE | 2016-06-07 09:34 | Gastrointestinal Progress Note ---
Assessment and Plan (1) Upper GI bleed Status: Acute Assessment and plan: I suspect this patient may have peptic ulcer disease, erosive gastritis although Maria De Jesus-Bautista tear is still in the differential and esophagitis as had been seen back in 2010 [place]. Coverage with acid blocking medication twice a day is likely going to improve his situation considerably. We will look in his duodenal channel see if this is open now or whether he needs a repeat jejunal feeding tube versus a dilation of the posterior bulb to help with motility through this region. Nausea and vomiting may be made worse by gastroparesis and we will look for this entity as well. Have asked her CT scan to evaluate if there is a great deal of stricturing or dilation of the small bowel. We will feed depending on findings at upper endoscopy. It is all right that he try some clear liquids at this point in anticipation of the CT scan. 05/31/16-- The upper endoscopy seems that showed complete circumferential obstruction at the level posterior bulb of the duodenum with pigmented spot-- I cannot see an emptying point into the remaining duodenum, there is an LA class D erosive esophagitis 10 cm as well with a Maria De Jesus-Bautista tear at the GE junction in addition. Anyone of these could be the bleeding source for this patient but likely all 3 together. 06/01/16-- barium swallow/upper GI series demonstrates a scant amount of emptying through the post bulbar stricture into the duodenum with a poststenotic dilation and some question of a SMA syndrome present. While this may be seen with a vessel coursing across the duodenum typically this would have an appearance of external compression on the duodenum not a large ulcer without exit in the duodenal bulb. Surgery will almost certainly still be needed. He do not know if the surgeon will elect to simply bypass this area the duodenum and open a gastrojejunostomy vs. duodenal resection and a Billroth II. Surgery likely to evaluate the patient on Friday. TPN continues at this point. 06/02/16--We are waiting Dr. Leone's return tomorrow in order to discuss potential surgery with the patient for some sort of Billroth I or II procedure versus gastrojejunostomy. He has near 100% obstruction of his posterior bulb distally. 06/03/16--the family has decided to utilize Viraj Hari the IIIrd for the patient's surgery. His pain is still an 8 out of 10 in intensity, he has been getting his Protonix routinely and has actually, surprisingly, been able to tolerate clear liquid diet up to this point. TPN is continuing, and his lipase level is up slightly from earlier in the admission. We'll await Dr. Noriega consultation as far as what surgery thinks would be appropriate, and the timing of the surgery. Patient's electrolytes are experiencing some refeeding phenomenon with the TPN. The TPN is being adjusted by the dietitian. Concerning the patient's pain, I think that it might be reasonable choice to use a fentanyl patch 25 to 50 g every 72 hours to cover him for his chronic pain. He does have true pancreatitis with an ulcer in the duodenal bulb as well as LA class D esophagitis all of which I'm sure hurt, as real sources of his pain. 06/04/16--Dr. Noriega has seen the patient and is in agreement with proceeding. Gastrin level pending to look for Corrine-Crow syndrome, and the patient continues to get TPN to help with his malabsorption. He's been able tolerate his clear liquids without difficulty at all. We might consider switching him to a full liquid diet, given the fact that he is on proton pump inhibition now and he has been able tolerate clears and was able to tolerate a full diet at home up until this last week. Obviously, something is able to get out of the stomach as he has continued to have bowel movements each day. 06/05/16--Dr. Noriega is discussing surgical options with the patient. Gastrin level was sent off on 06/03/16. The patient continues on TPN and has been advanced to a full liquid diet which she is tolerating well. Unfortunately he is eaten this morning and likely will not be able to have his surgery yet today. His pain is down to a 5 out of 10 in intensity and he is otherwise doing well. The patient was placed on transdermal patch yesterday and does seem more comfortable perhaps we can start to wean his IV narcotics in the near future. After calling male out some the laboratory it seems the gastrin level got sent off to the [facility] yesterday and has turnaround time of about 3 days. Abimbola in the lab is looking for an exact time that it might be back. 06/06/16--gastrin level was reassuringly normal at 47. Awaiting gastric surgery to bypass the duodenal obstruction likely with a Art-en-Y anastomosis. 06/07/16--as noted above. Suspect the surgery will be a duodenal bypass with Art-en-Y anastomosis as mentioned above. This will depend upon the circumstances found at surgery. Current Visit: Yes (2) Abnormal weight loss Status: Acute Assessment and plan: This patient has lost a significant amount of weight-- currently is down 87 pounds at the bedside from his baseline weight. I suspect this is from decreased intake of adequate calories over time but there may be an element of gastroparesis or bulbar stricturing, gastritis, overall whole host of other factors that might be feeding into the weight loss. Should be able to tell more once the CT scan of the abdomen and upper endoscopy are completed. Risks of endoscopy were reviewed with the patient are include but are not limited to: Bleeding, infection, perforation, cardiac and pulmonary compromise. 05/31/16--this patient has what appears to be posterior bulb duodenal obstruction with a circumferential ulcer. This almost certainly will require surgery for resection. It will not heal on its own in my opinion. This will require a Billroth I or II procedure most likely from my opinion. 06/01/16--no change from the above. 06/02/16--same as above 06/03/16--TPN was started on this patient he is also tolerating his clear liquid diet, surprisingly given the appearance of his duodenum. Unfortunately the feeding is stimulate his pancreas is well. He is experiencing a slight increase in his lipase levels as well as a result. 06/04/16-- We may consider putting him on full liquid diet if surgeon agrees while awaiting surgery. I think he might be able tolerate this. 06/05/16--the patient is tolerating his diet well and still getting TPN. He is likely to benefit from both given he is extremely malnourished. 06/06/16--nothing by mouth for surgery this morning. 06/07/16--currently nothing by mouth for the surgery this morning, still getting TPN at this time, I anticipate this will continue at least through the weekend. Current Visit: Yes (3) History of pancreatitis Status: Acute Assessment and plan: I've asked for an upper endoscopy to be done in order to look and see how well fluids and solids get out of the stomach into the duodenum. 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 Worsened by the patient's acid load. We'll certainly check and see if there is any evidence of ulcers or inflammation either in the esophagus stomach or duodenum. We will check for Helicobacter pylori. Keep the patient off his Pepto-Bismol. He denies NSAID use. We may need to consult surgery about getting another jejunal feeding tube if the stricture in the duodenum cannot be ballooned open her past appropriately. We need to bear in mind the patient may have an underlying Crohn's disease as well. We will see if the CT scan ordered today demonstrates any evidence of pancreatitis. Right now the lipase level increases unimpressive. 06/01/16-- continued observation advised 06/02/16--same as above. 06/03/16-- Chronic pancreatitis with duodenal stricturing likely is result of scarring in the second portion of the duodenum with dominga ulceration there now. Suggest diverting pass this area versus gastrojejunostomy. This is likely the cause for the patient's weight loss over the last several years. Awaiting Dr. Noriega consultation concerning potential surgeries to be offered. 06/04/16-- suspect he will need some surgery to divert past the second portion the duodenum-- the gastrin level is elevated and we suspect a mass he might require something is radical as a Whipple versus a Billroth I versus II combined with the selective vagotomy. Await gastrin level. He is certainly getting TPN at this time to help deal with his general malnutrition. Other than this issue patient appears generally healthy. 06/05/16--we'll check his lipase levels tomorrow and see if the extra nutrition is driving these up, especially given his exposure to intralipids. 06/06/16--the gastrin level is normal, this is not is Corrine-Crow syndrome. Dr. Noriega would like to stay away from the anchors if possible during today's surgery, especially given the fact this is fused to the stomach with his previous cysygastroscopy. Triglyceride levels are actually normal on the intralipids. 06/07/16--as noted above. Current Visit: Yes (4) Acute posthemorrhagic anemia Status: Acute Assessment and plan: See above, hematocrit is 29% which is stable for this patient. 06/02/16-- His crit is still 29%, patient appears to be stable, we will try some clear liquids to see how these are tolerated for the patient. 06/03/16--CBC to be ordered for tomorrow. 06/04/16--CBC is pending. 06/05/16--CBC demonstrates stability of the patient's hematocrit currently of 30% . I suspect that a fair amount of this is nutritional, in addition to the peptic ulcer disease seen in the duodenal bulb and erosive gastritis. 06/06/16--We'll simply observe this for the present time. 06/07/16--Suggest repeat CBC over the weekend, post surgery. Current Visit: Yes Gastroenterology - PN: Subj Interval history: The patient is in surgery at the present time, he is not mated to the recovery room yet. He is not available for interview. Exam (Progress Note) - Constitutional Vitals: Period Temp Pulse Resp BP Sys/Vaca Pulse Ox Last 24 Hr 97.1 F-99.7 F 80-88 16-20 125-134/69-81 99-100 Exam: The patient is not available for exam. Results - Labs CBC & BMP: 06/04/16 07:24 06/06/16 04:40
--- NOTE | 2016-06-07 10:37 | Operative Note ---
Date of procedure: 06/07/16 Pre-op diagnosis: gastric outlet obstruction Post-op diagnosis: same Procedure: Art-en-Y gastrojejunostomy Findings and technique: After informed consent was obtained the patient was brought the operating room and placed in spine position. After successful induction with general anesthesia the patient's abdomen was prepped and draped in usual sterile fashion. The abdomen was opened through his old upper midline scar and the peritoneal cavity was largely free of adhesions except for the areas in the upper abdomen adjacent to the stomach and duodenum liver gallbladder and pancreas. There was extensive fibrosis in this area with all of these structures essentially welded together with dense fibrosis that did not appear malignant. There was really no way to dissect the duodenum the duodenal bulb as this was essentially contiguous through dense fibrosis with his pancreas which it had previous pancreatitis. The pseudocyst noted on CT scan was not visible. This was all intimately associated with the mesenteric vessels and portal vessels it was apparent that this area could not be safely dissected. I selected a location on the dependent portion of the stomach along the greater curve of the body of the stomach. This was just proximal to where he had had a previous gastrotomy with pancreatic cyst gastrostomy. The stomach appeared healthy in this location. This laid in proximity to the transverse colon mesentery where I made a small defect adjacent to this. I then dissected and explored the knee the mesentery at the ligament of Treitz and dissected and divided the proximal jejunum about 15 cm past the ligament of Treitz. A loop of cut end of jejunum was then brought through the mesenteric defect without any tension and a 2 layer anastomosis performed between the small bowel and the stomach. A generous size gastrojejunostomy opening was created. I did an inner layer of running 3-0 Vicryl suture and an outer layer of 3-0 silk Lembert sutures. The Art-en-Y anastomosis was then done in identical fashion with an inner layer of running 3-0 Vicryl suture and an outer layer of 3-0 silk Lembert sutures. Both of these anastomoses laid in good anatomic position without tension and the bowel appeared to be well-perfused. Mesenteric defect was closed with interrupted 3-0 silk suture and no bleeding was noted. Abdomen was irrigated suctioned dry once again good hemostasis noted. The fascial defect was closed after the nasogastric tube was well positioned in the stomach above the anastomosis. The fascia was closed with a running #1 PDS suture and the skin closed with skin clips. I had discussed with Dr. Kay about an acid reducing procedure but I had concerns about this causing gastric atony in this patient and this patient had not been on acid reduction medical therapy prior to surgery. For this reason I elected not to do this a vagotomy as I felt that he would be at risk for gastric atony and bowel dysmotility problems. Also the lesser curve of the stomach was somewhat fibrosed from his previous pancreatitis. He had no apparent complications and appeared to tolerate the procedure well. He did receive perioperative IV antibiotics and DVT prophylaxis. Anesthesia: GETA Surgeon / Physician: Tyron Noriega III. Estimated blood loss: other (50 mL) Specimens: none sent Condition: stable Disposition: PACU Results - Labs CBC & BMP: 06/04/16 07:24 06/06/16 04:40 Discharge Plan - Discharge Medications No Action No Known Home Medications [No Known Home Medications] - Follow Up or Referral - Forms/Instructions
[2016-06-07] MEDS ORDERED: SEVOFLURANE 1 UNIT/15 MINUTE INH ONE (10:38)
[2016-06-07] MEDS ORDERED: fentaNYL 100 MCG/2 ML VIAL ONE (10:39)
[2016-06-07] MEDS ORDERED: MIDAZOLAM 2 MG/2 ML VIAL ONE (10:39)
[2016-06-07] MEDS ORDERED: NALOXONE 0.4 MG/ML VIAL IV PRN (10:40)
[2016-06-07] MEDS ORDERED: HYDROmorphone 2 MG/1 ML VIAL ONE (10:42)
[2016-06-07] MEDS ORDERED: ONDANSETRON 4 MG/2 ML VIAL IV PRN (10:49)
[2016-06-07] MEDS: HYDROmorphone 2 MG/1 ML VIAL IV PRN ×4 (10:50→11:17)
[2016-06-07] MEDS ORDERED: HYDROmorphone PCA 30 MG/30 ML SYRINGE IV SCH (11:00)
[2016-06-07] MEDS: fentaNYL 50 MCG/HR PATCH TRANSDERM SCH (11:43)
[2016-06-07] MEDS: PANTOPRAZOLE 40 MG VIAL IV SCH ×2 (12:05→20:14)
[2016-06-07] MEDS: cefOXitin 1,000 MG in SODIUM CHLORIDE 0.9% 100 ML IV SCH ×2 (12:06→18:19)
[2016-06-07] MEDS ORDERED: LORazepam 2 MG/1 ML VIAL IV ONE (22:47)
[2016-06-08] MEDS: cefOXitin 1,000 MG in SODIUM CHLORIDE 0.9% 100 ML IV SCH (00:06)
[2016-06-08] MEDS: MORPHINE 2 MG/1 ML SYRINGE IV PRN ×10 (00:41→22:08)
[2016-06-08 05:07] LABS: Basophils # 0.1 10*3/uL (0.0-0.2); Basophils % 0.7 % (0.0-0.8); Eosinophils % 0.2 % (0.00-10.9); Hematocrit 27.3 VOL% (42.0-52.0); Hemoglobin 8.6 GM/DL (14.0-18.0); Immature Granulocytes % 0.3 %; Immature Granulocytes Absolute 0.03 #; Lymphocytes # 1.3 10*3/uL (1.4-4.0); Lymphocytes % 14.6 % (21.2-54.2); Mean Corpuscular HGB Conc 31.5 GM/DL (32-36); Mean Corpuscular Hemoglobin 25 PG (27-34); Mean Corpuscular Volume 80.5 FL (87-102); Mean Platelet Volume 11.2 FL (9.6-12.0); Monocytes # 0.6 10*3/uL (0.11-0.8); Monocytes % 6.6 % (1.7-12.7); Neutrophils % 77.6 % (38.7-73.9); Platelet Count 267 T/CUMM (130-400); Red Blood Count 3.39 MC/CUMM (3.8-5.5); Red Cell Distribution Width 18.6 % (9.3-17.3); White Blood Count 9.1 T/CUMM (4-12)
[2016-06-08 05:13] LABS: Calcium 8.3 MG/DL (8.5-10.1); Osmolality,Calculated 277.3 MOS/KG (273-304); Potassium 4.7 MMOL/L (3.5-5.1)
[2016-06-08] MEDS: PANTOPRAZOLE 40 MG VIAL IV SCH ×2 (08:09→20:41)
[2016-06-08] MEDS: LACTATED RINGERS 1,000 ML IV SCH (08:11)
--- NOTE | 2016-06-08 14:14 | Event Note ---
Afebrile vital signs stable. Says he feels pretty good. NG tube is had 800 out and is slightly pink tinged. Patient states he's been occasionally drinking a little bit of water to keep his mouth with. Labs are okay. Abdomen is soft and appropriately tender. We'll continue NG tube for now. Reassess in the morning.
--- NOTE | 2016-06-08 15:48 | Family Practice Progress Note ---
Family Practice - PN: Subj Interval history: Patient states that he is generally doing well. Still having issues with pain. He is afebrile with normal vital signs. He has an NG tube in place with good drainage. Reviewed a.m. labs which are stable. Lungs are clear to auscultation abdomen is soft and appropriately tender in view of surgery. No new problems identified. We will continue present treatment plan Exam (Progress Note) - Constitutional Vitals: Period Temp Pulse Resp BP Sys/Vaca Pulse Ox Last 24 Hr 96.3 F-99 F 72-95 15-20 108-146/58-90 96-99 Results - Labs CBC & BMP: 06/08/16 04:00 06/08/16 04:00 Quality Measures - VTE Contraindication to Pharmacological VTE Prophylaxis: High Risk of Bleeding
[2016-06-09] MEDS: MORPHINE 2 MG/1 ML SYRINGE IV PRN ×9 (00:30→21:34)
[2016-06-09 05:29] LABS: Basophils # 0.1 10*3/uL (0.0-0.2); Basophils % 0.7 % (0.0-0.8); Eosinophils # 0.2 10*3/uL (0.0-0.87); Hematocrit 26.9 VOL% (42.0-52.0); Hemoglobin 8.5 GM/DL (14.0-18.0); Immature Granulocytes % 0.4 %; Immature Granulocytes Absolute 0.03 #; Lymphocytes # 1.5 10*3/uL (1.4-4.0); Lymphocytes % 20.4 % (21.2-54.2); Mean Corpuscular HGB Conc 31.6 GM/DL (32-36); Mean Corpuscular Hemoglobin 25 PG (27-34); Mean Corpuscular Volume 79.6 FL (87-102); Monocytes # 0.6 10*3/uL (0.11-0.8); Neutrophils # 5.2 10*3/uL (1.4-7.4); Neutrophils % 68.5 % (38.7-73.9); Platelet Count 319 T/CUMM (130-400); Red Blood Count 3.38 MC/CUMM (3.8-5.5); Red Cell Distribution Width 18.4 % (9.3-17.3); White Blood Count 7.5 T/CUMM (4-12)
[2016-06-09 05:52] LABS: Albumin 2.4 G/DL (3.4-5.0); Bilirubin,Total 0.8 MG/DL (0.2-1.0); Calcium 8.2 MG/DL (8.5-10.1); Magnesium 2.2 MG/DL (1.8-2.4); Potassium 4.1 MMOL/L (3.5-5.1); Total Protein 5.7 G/DL (6.4-8.3)
[2016-06-09] MEDS: PANTOPRAZOLE 40 MG VIAL IV SCH ×2 (09:08→21:16)
[2016-06-09] MEDS: LACTATED RINGERS 1,000 ML IV SCH ×2 (09:11→21:35)
--- NOTE | 2016-06-09 12:19 | Family Practice Progress Note ---
Family Practice - PN: Subj Interval history: Patient sitting up the side of bed states that he feels much better. Smiling and states that he is hungry. He was eating Jell-O when I entered the room. He nor family admit to the any new complaints. Reviewed a.m. lab and studies which are stable. His physical examination is stable. We'll continue present treatment plan and hopefully will continue to improve Exam (Progress Note) - Constitutional Vitals: Period Temp Pulse Resp BP Sys/Vaca Pulse Ox Last 24 Hr 97.5 F-98.6 F 64-76 16-21 128-146/80-95 97-99 Results - Labs CBC & BMP: 06/09/16 04:00 06/09/16 04:00 Quality Measures - VTE Contraindication to Pharmacological VTE Prophylaxis: High Risk of Bleeding
--- NOTE | 2016-06-09 12:27 | Event Note ---
Doing well. Afebrile vital signs stable. NG tube with minimal aspirate. He's been eating jolly Rangers. Says he is hungry and wants to eat. He is having any nausea. His abdomen is soft and appropriately tender. He has good bowel sounds. He is not distended. His incision looks good. We'll remove the NG tube and start clear liquids today. He was instructed to go slow with his liquids.
[2016-06-10] MEDS: MORPHINE 2 MG/1 ML SYRINGE IV PRN ×9 (00:09→23:46)
[2016-06-10] MEDS ORDERED: HEPARIN LOCK FLUSH 500 UNIT/5 ML SYRINGE IV ONE (03:38)
[2016-06-10 05:33] LABS: Basophils # 0.1 10*3/uL (0.0-0.2); Basophils % 0.6 % (0.0-0.8); Eosinophils # 0.4 10*3/uL (0.0-0.87); Eosinophils % 4.1 % (0.00-10.9); Hematocrit 27.5 VOL% (42.0-52.0); Hemoglobin 8.4 GM/DL (14.0-18.0); Immature Granulocytes % 0.2 %; Immature Granulocytes Absolute 0.02 #; Lymphocytes # 1.6 10*3/uL (1.4-4.0); Lymphocytes % 18.4 % (21.2-54.2); Mean Corpuscular HGB Conc 30.5 GM/DL (32-36); Mean Corpuscular Hemoglobin 25 PG (27-34); Mean Corpuscular Volume 81.8 FL (87-102); Mean Platelet Volume 10.5 FL (9.6-12.0); Monocytes # 0.8 10*3/uL (0.11-0.8); Monocytes % 9.3 % (1.7-12.7); Neutrophils # 5.8 10*3/uL (1.4-7.4); Neutrophils % 67.4 % (38.7-73.9); Platelet Count 331 T/CUMM (130-400); Red Blood Count 3.36 MC/CUMM (3.8-5.5); Red Cell Distribution Width 18.5 % (9.3-17.3); White Blood Count 8.6 T/CUMM (4-12)
--- NOTE | 2016-06-10 07:19 | Event Note ---
He looks and feels well. He is had no nausea or vomiting and is tolerated liquids. He has stable vital signs and his abdomen is benign. He is hungry for real food. We will advance to a soft diet.
--- NOTE | 2016-06-10 07:22 | Family Practice Progress Note ---
Family Practice - PN: Subj Interval history: Patient is doing quite well postop. Patient states he is taking liquids without any difficulty and would like some regular food if possible. I told him I suspect Dr. Hari TY will advance his diet today. He denies any abdominal pain and has had no nausea and vomiting. Exam (Progress Note) - Constitutional Vitals: Period Temp Pulse Resp BP Sys/Vaca Pulse Ox Last 24 Hr 97.7 F-98.9 F 64-90 16-20 124-139/78-96 98-99 Exam: Objective reveals an emaciated white male who certainly looks back to himself. Patient is awake and alert and in good spirits. He is ready for breakfast. Cardiovascular: Heart rate is regular without murmurs Respiratory: The lungs clear to auscultation bilaterally Abdomen: The abdomen is scaphoid and diffusely tender directly. There is no rebound or guarding. Extremities: There is no calf swelling or tenderness. Results - Labs CBC & BMP: 06/10/16 04:00 06/09/16 04:00 Lab Results: I have reviewed the past 24 hour labs Assessment and Plan (1) Anemia Status: Resolved Assessment and plan: 05/30/2016: Transfusion has been ordered emergently. 06/03/2016: Patient's hematocrit is 29% this morning. 06/10/2016: Patient's hematocrit is stable. Current Visit: Yes (2) Upper GI bleed Status: Acute Assessment and plan: 05/30/2016: Patient will be admitted to intensive care and Dr. Cervantes has been notified. IV Protonix has been ordered. 06/03/2016: No further bleeding is noted. Patient has duodenal ulcer and extrinsic narrowing of his duodenum 06/04/2016: Patient is being evaluated for surgical intervention. Patient is stable and can be moved to the floor. 06/05/2016: But certainly clinically improving, patient is being evaluated by Dr. Noriega for surgical remedy. Current Visit: Yes (3) Duodenal stricture Status: Acute Assessment and plan: 06/06/2016: Patient scheduled for surgery today. 06/10/2016: Patient is doing very well postop gastrojejunostomy Current Visit: Yes Quality Measures - VTE Contraindication to Pharmacological VTE Prophylaxis: High Risk of Bleeding
[2016-06-10] MEDS: PANTOPRAZOLE 40 MG VIAL IV SCH (09:21)
[2016-06-10] MEDS: fentaNYL 50 MCG/HR PATCH TRANSDERM SCH (09:24)
--- NOTE | 2016-06-10 14:01 | Gastrointestinal Progress Note ---
Assessment and Plan (1) Upper GI bleed Status: Acute Assessment and plan: I suspect this patient may have peptic ulcer disease, erosive gastritis although Maria De Jesus-Bautista tear is still in the differential and esophagitis as had been seen back in 2010 [place]. Coverage with acid blocking medication twice a day is likely going to improve his situation considerably. We will look in his duodenal channel see if this is open now or whether he needs a repeat jejunal feeding tube versus a dilation of the posterior bulb to help with motility through this region. Nausea and vomiting may be made worse by gastroparesis and we will look for this entity as well. Have asked her CT scan to evaluate if there is a great deal of stricturing or dilation of the small bowel. We will feed depending on findings at upper endoscopy. It is all right that he try some clear liquids at this point in anticipation of the CT scan. 05/31/16-- The upper endoscopy seems that showed complete circumferential obstruction at the level posterior bulb of the duodenum with pigmented spot-- I cannot see an emptying point into the remaining duodenum, there is an LA class D erosive esophagitis 10 cm as well with a Maria De Jesus-Bautista tear at the GE junction in addition. Anyone of these could be the bleeding source for this patient but likely all 3 together. 06/01/16-- barium swallow/upper GI series demonstrates a scant amount of emptying through the post bulbar stricture into the duodenum with a poststenotic dilation and some question of a SMA syndrome present. While this may be seen with a vessel coursing across the duodenum typically this would have an appearance of external compression on the duodenum not a large ulcer without exit in the duodenal bulb. Surgery will almost certainly still be needed. He do not know if the surgeon will elect to simply bypass this area the duodenum and open a gastrojejunostomy vs. duodenal resection and a Billroth II. Surgery likely to evaluate the patient on Friday. TPN continues at this point. 06/02/16--We are waiting Dr. Leone's return tomorrow in order to discuss potential surgery with the patient for some sort of Billroth I or II procedure versus gastrojejunostomy. He has near 100% obstruction of his posterior bulb distally. 06/03/16--the family has decided to utilize Viraj Hari the III[facility] for the patient's surgery. His pain is still an 8 out of 10 in intensity, he has been getting his Protonix routinely and has actually, surprisingly, been able to tolerate clear liquid diet up to this point. TPN is continuing, and his lipase level is up slightly from earlier in the admission. We'll await Dr. Noriega consultation as far as what surgery thinks would be appropriate, and the timing of the surgery. Patient's electrolytes are experiencing some refeeding phenomenon with the TPN. The TPN is being adjusted by the dietitian. Concerning the patient's pain, I think that it might be reasonable choice to use a fentanyl patch 25 to 50 g every 72 hours to cover him for his chronic pain. He does have true pancreatitis with an ulcer in the duodenal bulb as well as LA class D esophagitis all of which I'm sure hurt, as real sources of his pain. 06/04/16--Dr. Noriega has seen the patient and is in agreement with proceeding. Gastrin level pending to look for Corrine-Crow syndrome, and the patient continues to get TPN to help with his malabsorption. He's been able tolerate his clear liquids without difficulty at all. We might consider switching him to a full liquid diet, given the fact that he is on proton pump inhibition now and he has been able tolerate clears and was able to tolerate a full diet at home up until this last week. Obviously, something is able to get out of the stomach as he has continued to have bowel movements each day. 06/05/16--Dr. Noriega is discussing surgical options with the patient. Gastrin level was sent off on 06/03/16. The patient continues on TPN and has been advanced to a full liquid diet which she is tolerating well. Unfortunately he is eaten this morning and likely will not be able to have his surgery yet today. His pain is down to a 5 out of 10 in intensity and he is otherwise doing well. The patient was placed on transdermal patch yesterday and does seem more comfortable perhaps we can start to wean his IV narcotics in the near future. After calling male out some the laboratory it seems the gastrin level got sent off to the [facility] yesterday and has turnaround time of about 3 days. Abimbola in the lab is looking for an exact time that it might be back. 06/06/16--gastrin level was reassuringly normal at 47. Awaiting gastric surgery to bypass the duodenal obstruction likely with a Art-en-Y anastomosis. 06/07/16--as noted above. Suspect the surgery will be a duodenal bypass with Art-en-Y anastomosis as mentioned above. This will depend upon the circumstances found at surgery. 06/10/16-- The patient is doing well with his gastrojejunostomy with Art limb. He is now tolerating a solid diet, his pain is down to 6 out of 10 in intensity and I expect he'll be able to leave the hospital soon. We will check one last lipase tomorrow to see how this is doing in response to the solid diet. I adjusted the diet to decrease the amount of fat which can lead to malabsorption and worsening pancreatitis. The TPN has been discontinued. The patient is actually in great spirits. Current Visit: Yes (2) Abnormal weight loss Status: Acute Assessment and plan: This patient has lost a significant amount of weight-- currently is down 87 pounds at the bedside from his baseline weight. I suspect this is from decreased intake of adequate calories over time but there may be an element of gastroparesis or bulbar stricturing, gastritis, overall whole host of other factors that might be feeding into the weight loss. Should be able to tell more once the CT scan of the abdomen and upper endoscopy are completed. Risks of endoscopy were reviewed with the patient are include but are not limited to: Bleeding, infection, perforation, cardiac and pulmonary compromise. 05/31/16--this patient has what appears to be posterior bulb duodenal obstruction with a circumferential ulcer. This almost certainly will require surgery for resection. It will not heal on its own in my opinion. This will require a Billroth I or II procedure most likely from my opinion. 06/01/16--no change from the above. 06/02/16--same as above 06/03/16--TPN was started on this patient he is also tolerating his clear liquid diet, surprisingly given the appearance of his duodenum. Unfortunately the feeding is stimulate his pancreas is well. He is experiencing a slight increase in his lipase levels as well as a result. 06/04/16-- We may consider putting him on full liquid diet if surgeon agrees while awaiting surgery. I think he might be able tolerate this. 06/05/16--the patient is tolerating his diet well and still getting TPN. He is likely to benefit from both given he is extremely malnourished. 06/06/16--nothing by mouth for surgery this morning. 06/07/16--currently nothing by mouth for the surgery this morning, still getting TPN at this time, I anticipate this will continue at least through the weekend. 06/10/16-- He is off of his TPN at this point and tolerating solid diet. He was reminded that he will need to eat several small meals during the day and stay on a multivitamin twice daily-- low-fat 60 g protein diet is suggested in this patient who is chronic pancreatitis. We'll check a lipase level tomorrow, and switch over to oral Protonix today, to see if he tolerates this by mouth as opposed to IV which he is getting presently. Current Visit: Yes (3) History of pancreatitis Status: Acute Assessment and plan: I've asked for an upper endoscopy to be done in order to look and see how well fluids and solids get out of the stomach into the duodenum. 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 Worsened by the patient's acid load. We'll certainly check and see if there is any evidence of ulcers or inflammation either in the esophagus stomach or duodenum. We will check for Helicobacter pylori. Keep the patient off his Pepto-Bismol. He denies NSAID use. We may need to consult surgery about getting another jejunal feeding tube if the stricture in the duodenum cannot be ballooned open her past appropriately. We need to bear in mind the patient may have an underlying Crohn's disease as well. We will see if the CT scan ordered today demonstrates any evidence of pancreatitis. Right now the lipase level increases unimpressive. 06/01/16-- continued observation advised 06/02/16--same as above. 06/03/16-- Chronic pancreatitis with duodenal stricturing likely is result of scarring in the second portion of the duodenum with dominga ulceration there now. Suggest diverting pass this area versus gastrojejunostomy. This is likely the cause for the patient's weight loss over the last several years. Awaiting Dr. Noriega consultation concerning potential surgeries to be offered. 06/04/16-- suspect he will need some surgery to divert past the second portion the duodenum-- the gastrin level is elevated and we suspect a mass he might require something is radical as a Whipple versus a Billroth I versus II combined with the selective vagotomy. Await gastrin level. He is certainly getting TPN at this time to help deal with his general malnutrition. Other than this issue patient appears generally healthy. 06/05/16--we'll check his lipase levels tomorrow and see if the extra nutrition is driving these up, especially given his exposure to intralipids. 06/06/16--the gastrin level is normal, this is not is Corrine-Crow syndrome. Dr. Noriega would like to stay away from the anchors if possible during today's surgery, especially given the fact this is fused to the stomach with his previous cysygastroscopy. Triglyceride levels are actually normal on the intralipids. 06/07/16--as noted above. 06/10/16--going to the operative report the guarding the duodenum, pancreatitis, duodenal ulcer, and previous site of cyst gastroscopy are all matted down and inseparable in the lower portion of the stomach., This was bypassed with the recent surgery. Lipase level pending tomorrow. Current Visit: Yes (4) Acute posthemorrhagic anemia Status: Acute Assessment and plan: See above, hematocrit is 29% which is stable for this patient. 06/02/16-- His crit is still 29%, patient appears to be stable, we will try some clear liquids to see how these are tolerated for the patient. 06/03/16--CBC to be ordered for tomorrow. 06/04/16--CBC is pending. 06/05/16--CBC demonstrates stability of the patient's hematocrit currently of 30% . I suspect that a fair amount of this is nutritional, in addition to the peptic ulcer disease seen in the duodenal bulb and erosive gastritis. 06/06/16--We'll simply observe this for the present time. 06/07/16--Suggest repeat CBC over the weekend, post surgery. 06/10/16--His hematocrit is stable this point at 27%. We'll continue to observe over time. Current Visit: Yes Gastroenterology - PN: Subj Interval history: The patient is tolerating his soft diet well. This morning he was able to tolerate grits, eggs and george. He had one bowel movement today and this did not float, we may need to keep an eye on him concerning potential fat malabsorption given his history of chronic pancreatitis. He still characterizes his abdominal pain and 6 out of 10 in intensity. I am not sure whether or not the fentanyl patches adding anything, we might be able to discontinue this patch as he seems Mostly on the morphine, not surprisingly. Exam (Progress Note) - Constitutional Vitals: Period Temp Pulse Resp BP Sys/Vaca Pulse Ox Last 24 Hr 97.8 F-98.9 F 65-90 17-20 124-135/78-91 98-99 General appearance: no acute distress - Head Head exam: Present: normocephalic, atraumatic - Eye Eye exam: Present: EOMI Pupils: Present: LEONID - Respiratory Respiratory exam: Present: clear to auscultation bilaterally - Cardiovascular Cardiovascular exam: Present: regular rate and rhythm - GI/Abdominal GI/Abdominal exam: Present: normal bowel sounds, tenderness (midepigastric and periumbilical pain on deep palpation, staple line is clean and dry with only minimal erythema), soft. Absent: distended, guarding, rebound - Extremities Exam Extremities exam: Present: normal inspection - Neurological Exam Neurological exam: Present: alert, oriented X3, CN II-XII intact. Absent: motor sensory deficit - Psychiatric Psychiatric exam: Present: normal affect, normal mood - Skin Skin exam: Present: warm Results - Labs CBC & BMP: 06/10/16 04:00 06/09/16 04:00
[2016-06-10] MEDS: PANTOPRAZOLE 40 MG TABLET PO SCH (18:58)
[2016-06-11] MEDS: MORPHINE 2 MG/1 ML SYRINGE IV PRN ×4 (02:20→09:18)
[2016-06-11] MEDS: PANTOPRAZOLE 40 MG TABLET PO SCH (06:55)
--- NOTE | 2016-06-11 07:19 | Discharge Summary ---
Hospital Course - Hospital Course Hospital Course: Patient is 30-year-old white male presented to emergency room on day of admission with severe weakness and history of hematemesis. He was found to be cachectic, tachycardic, hypotensive and extremely pale. His admission hematocrit was 13%. Patient was admitted to intensive care given transfusions emergently. Patient's hematocrit responded to this treatment. He was seen in consultation by Dr. Cervantes and Dr. Hari TY. Patient had a EGD which revealed him to have a large duodenal ulcer and evidence of gastric outlet obstruction. Patient has had past history of the rather severe pancreatitis with pseudocyst formation. Dr. Hari TY felt that the best procedure this young man would be a gastrojejunostomy and this was carried out with successful results. Patient did extremely well postop and his diet was advanced without incident. Patient's now tolerating solid food and is anxious for discharge. I reminded him that he needs routine follow-up of this condition. Diagnosis - Discharge Diagnosis (1) Anemia Status: Resolved (2) Upper GI bleed Status: Acute (3) Duodenal stricture Status: Acute Discharge Plan - Discharge Data Disposition: Disch To Home/Self Care Condition at Discharge: Stable Discharge Diet: advance to your usual diet Activity: resume usual activities as tolerated Hygiene: no restrictions Weight Bearing at Discharge: full weight bearing Driving: no restrictions Contact your physician if you experience:: fever over 101 - Discharge Medications New Ferrous Sulfate Tab [Feosol Original Tab] 325 mg PO DAILY #30 tablet Pantoprazole Tab [Protonix Tab] 40 mg PO BID@0700,1900 #60 tablet fentaNYL 50 MCG/HR PATCH [Duragesic 50 Patch] 1 patch TRANSDERM Q3DAY #10 patch Acetaminophen Tab [Tylenol Tab] 650 mg PO Q6H PRN #0 tablet PRN Reason: Fever > 100.4 Or Headache - Follow Up or Referral - Forms/Instructions Exam - Constitutional Vitals: Period Temp Pulse Resp BP Sys/Vaca Pulse Ox Last 24 Hr 97.3 F-97.7 F 81-88 14-20 112-127/63-76 98-100 Exam: Objective reveals an emaciated white male who certainly looks back to himself. Patient is awake and alert and in good spirits. He is ready for breakfast. Cardiovascular: Heart rate is regular without murmurs Respiratory: The lungs clear to auscultation bilaterally Abdomen: The abdomen is scaphoid and diffusely tender directly. There is no rebound or guarding. Extremities: There is no calf swelling or tenderness. Discharge Results Procedures and tests throughout hospitalization: Pending Orders 05/31/16 18:31 Occult Blood, Stool Stat Labs on day of discharge: Labs from last 24 hours 06/11/16 04:20 Lipase 585.0 H DS: Provider Date of admission: 05/30/16 05:15 Primary care physician: . No PCP Attending physician on admission: Neville Peguero MD Consults: 05/30/16 05:48 Consult to Pharmacy [CONS] Routine Reason for Pharmacy Consult: Adjust Meds Renal Funct 05/30/16 11:06 Consult to Dietitian [CONS] Routine Reason for Dietitian: Dietary Consult 05/30/16 11:14 Consult to Physician [CONS] Routine Comment: Consulting Provider: Tony Cope Consulting Provider Notified: Yes When should Consulting Provider be notified: Now Consult to Specialist Group: Gastroenterology When should Consulting Provider be notified: Now Person Notified: MICHAEL Date Notified: 05/30/16 Time Notified: 11:25 05/30/16 13:34 Consult to Anesthesiology [CONS] Routine Consulting Provider: Reason for Anesthesiology: Pre-op Clearance 05/31/16 18:48 Consult to Dietitian [CONS] Routine Reason for Dietitian: TPN/PPN-Initiate/Manage Dietary Consult 06/02/16 21:44 Consult to Physician [CONS] Routine Comment: Consulting Provider: Tyron Noriega III. Consulting Provider Notified: Yes Consult to Specialist Group: Surgery When should Consulting Provider be notified: In am Person Notified: kelly Date Notified: 06/03/16 Time Notified: 08:50 Discharging clinician: Neville Peguero MD Expected date of discharge: 06/11/16
--- NOTE | 2016-06-11 08:56 | Event Note ---
Feels well. Eating,no n/v. wound looks good. Agree with dc. f/u 1 week.
--- NOTE | 2016-06-11 08:57 | Gastrointestinal Progress Note ---
Assessment and Plan (1) Upper GI bleed Status: Acute Assessment and plan: I suspect this patient may have peptic ulcer disease, erosive gastritis although Maria De Jesus-Bautista tear is still in the differential and esophagitis as had been seen back in 2010 [place]. Coverage with acid blocking medication twice a day is likely going to improve his situation considerably. We will look in his duodenal channel see if this is open now or whether he needs a repeat jejunal feeding tube versus a dilation of the posterior bulb to help with motility through this region. Nausea and vomiting may be made worse by gastroparesis and we will look for this entity as well. Have asked her CT scan to evaluate if there is a great deal of stricturing or dilation of the small bowel. We will feed depending on findings at upper endoscopy. It is all right that he try some clear liquids at this point in anticipation of the CT scan. 05/31/16-- The upper endoscopy seems that showed complete circumferential obstruction at the level posterior bulb of the duodenum with pigmented spot-- I cannot see an emptying point into the remaining duodenum, there is an LA class D erosive esophagitis 10 cm as well with a Maria De Jesus-Bautista tear at the GE junction in addition. Anyone of these could be the bleeding source for this patient but likely all 3 together. 06/01/16-- barium swallow/upper GI series demonstrates a scant amount of emptying through the post bulbar stricture into the duodenum with a poststenotic dilation and some question of a SMA syndrome present. While this may be seen with a vessel coursing across the duodenum typically this would have an appearance of external compression on the duodenum not a large ulcer without exit in the duodenal bulb. Surgery will almost certainly still be needed. He do not know if the surgeon will elect to simply bypass this area the duodenum and open a gastrojejunostomy vs. duodenal resection and a Billroth II. Surgery likely to evaluate the patient on Friday. TPN continues at this point. 06/02/16--We are waiting Dr. Leone's return tomorrow in order to discuss potential surgery with the patient for some sort of Billroth I or II procedure versus gastrojejunostomy. He has near 100% obstruction of his posterior bulb distally. 06/03/16--the family has decided to utilize [facility] the [facility] for the patient's surgery. His pain is still an 8 out of 10 in intensity, he has been getting his Protonix routinely and has actually, surprisingly, been able to tolerate clear liquid diet up to this point. TPN is continuing, and his lipase level is up slightly from earlier in the admission. We'll await Dr. Noriega consultation as far as what surgery thinks would be appropriate, and the timing of the surgery. Patient's electrolytes are experiencing some refeeding phenomenon with the TPN. The TPN is being adjusted by the dietitian. Concerning the patient's pain, I think that it might be reasonable choice to use a fentanyl patch 25 to 50 g every 72 hours to cover him for his chronic pain. He does have true pancreatitis with an ulcer in the duodenal bulb as well as LA class D esophagitis all of which I'm sure hurt, as real sources of his pain. 06/04/16--Dr. Noriega has seen the patient and is in agreement with proceeding. Gastrin level pending to look for Corrine-Crow syndrome, and the patient continues to get TPN to help with his malabsorption. He's been able tolerate his clear liquids without difficulty at all. We might consider switching him to a full liquid diet, given the fact that he is on proton pump inhibition now and he has been able tolerate clears and was able to tolerate a full diet at home up until this last week. Obviously, something is able to get out of the stomach as he has continued to have bowel movements each day. 06/05/16--Dr. Noriega is discussing surgical options with the patient. Gastrin level was sent off on 06/03/16. The patient continues on TPN and has been advanced to a full liquid diet which she is tolerating well. Unfortunately he is eaten this morning and likely will not be able to have his surgery yet today. His pain is down to a 5 out of 10 in intensity and he is otherwise doing well. The patient was placed on transdermal patch yesterday and does seem more comfortable perhaps we can start to wean his IV narcotics in the near future. After calling male out some the laboratory it seems the gastrin level got sent off to the [facility] yesterday and has turnaround time of about 3 days. Abimbola in the lab is looking for an exact time that it might be back. 06/06/16--gastrin level was reassuringly normal at 47. Awaiting gastric surgery to bypass the duodenal obstruction likely with a Art-en-Y anastomosis. 06/07/16--as noted above. Suspect the surgery will be a duodenal bypass with Art-en-Y anastomosis as mentioned above. This will depend upon the circumstances found at surgery. 06/10/16-- The patient is doing well with his gastrojejunostomy with Art limb. He is now tolerating a solid diet, his pain is down to 6 out of 10 in intensity and I expect he'll be able to leave the hospital soon. We will check one last lipase tomorrow to see how this is doing in response to the solid diet. I adjusted the diet to decrease the amount of fat which can lead to malabsorption and worsening pancreatitis. The TPN has been discontinued. The patient is actually in great spirits. 06/11/16--This patient is doing very well but is having some mild nausea with his previous solid food eaten yesterday, I agree with Dr. Peguero that he is able to go home today-- again we have checked his lipase level emesis 585 which is slightly elevated. He will have difficulties with ongoing chronic pancreatitis likely. He needs to follow up in my office in another 6 weeks and we'll reassess him to see if he needs to have a workup for malabsorption. He needs vitamin supplement daily and I would like for him to talk with the dietitian before today's concerning a 60 g/low protein and low-fat diet. I agree with the use of the fentanyl patch which should help take away the highs and lows of the morphine use, although the patient will not be infused by this idea. Current Visit: Yes (2) Abnormal weight loss Status: Acute Assessment and plan: This patient has lost a significant amount of weight-- currently is down 87 pounds at the bedside from his baseline weight. I suspect this is from decreased intake of adequate calories over time but there may be an element of gastroparesis or bulbar stricturing, gastritis, overall whole host of other factors that might be feeding into the weight loss. Should be able to tell more once the CT scan of the abdomen and upper endoscopy are completed. Risks of endoscopy were reviewed with the patient are include but are not limited to: Bleeding, infection, perforation, cardiac and pulmonary compromise. 05/31/16--this patient has what appears to be posterior bulb duodenal obstruction with a circumferential ulcer. This almost certainly will require surgery for resection. It will not heal on its own in my opinion. This will require a Billroth I or II procedure most likely from my opinion. 06/01/16--no change from the above. 06/02/16--same as above 06/03/16--TPN was started on this patient he is also tolerating his clear liquid diet, surprisingly given the appearance of his duodenum. Unfortunately the feeding is stimulate his pancreas is well. He is experiencing a slight increase in his lipase levels as well as a result. 06/04/16-- We may consider putting him on full liquid diet if surgeon agrees while awaiting surgery. I think he might be able tolerate this. 06/05/16--the patient is tolerating his diet well and still getting TPN. He is likely to benefit from both given he is extremely malnourished. 06/06/16--nothing by mouth for surgery this morning. 06/07/16--currently nothing by mouth for the surgery this morning, still getting TPN at this time, I anticipate this will continue at least through the weekend. 06/10/16-- He is off of his TPN at this point and tolerating solid diet. He was reminded that he will need to eat several small meals during the day and stay on a multivitamin twice daily-- low-fat 60 g protein diet is suggested in this patient who is chronic pancreatitis. We'll check a lipase level tomorrow, and switch over to oral Protonix today, to see if he tolerates this by mouth as opposed to IV which he is getting presently. 06/11/16--As noted above, the patient is being replaced today, he should follow up with me in the office in 6 weeks. Current Visit: Yes (3) History of pancreatitis Status: Acute Assessment and plan: I've asked for an upper endoscopy to be done in order to look and see how well fluids and solids get out of the stomach into the duodenum. 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 Worsened by the patient's acid load. We'll certainly check and see if there is any evidence of ulcers or inflammation either in the esophagus stomach or duodenum. We will check for Helicobacter pylori. Keep the patient off his Pepto-Bismol. He denies NSAID use. We may need to consult surgery about getting another jejunal feeding tube if the stricture in the duodenum cannot be ballooned open her past appropriately. We need to bear in mind the patient may have an underlying Crohn's disease as well. We will see if the CT scan ordered today demonstrates any evidence of pancreatitis. Right now the lipase level increases unimpressive. 06/01/16-- continued observation advised 06/02/16--same as above. 06/03/16-- Chronic pancreatitis with duodenal stricturing likely is result of scarring in the second portion of the duodenum with dominga ulceration there now. Suggest diverting pass this area versus gastrojejunostomy. This is likely the cause for the patient's weight loss over the last several years. Awaiting Dr. Noriega consultation concerning potential surgeries to be offered. 06/04/16-- suspect he will need some surgery to divert past the second portion the duodenum-- the gastrin level is elevated and we suspect a mass he might require something is radical as a Whipple versus a Billroth I versus II combined with the selective vagotomy. Await gastrin level. He is certainly getting TPN at this time to help deal with his general malnutrition. Other than this issue patient appears generally healthy. 06/05/16--we'll check his lipase levels tomorrow and see if the extra nutrition is driving these up, especially given his exposure to intralipids. 06/06/16--the gastrin level is normal, this is not is Corrine-Crow syndrome. Dr. Noriega would like to stay away from the anchors if possible during today's surgery, especially given the fact this is fused to the stomach with his previous cysygastroscopy. Triglyceride levels are actually normal on the intralipids. 06/07/16--as noted above. 06/10/16--going to the operative report the guarding the duodenum, pancreatitis, duodenal ulcer, and previous site of cyst gastroscopy are all matted down and inseparable in the lower portion of the stomach., This was bypassed with the recent surgery. Lipase level pending tomorrow. 06/11/16-- As mentioned above with the dietary changes, lipase level was 585 today which indicates ongoing pancreatitis. Current Visit: Yes (4) Acute posthemorrhagic anemia Status: Acute Assessment and plan: See above, hematocrit is 29% which is stable for this patient. 06/02/16-- His crit is still 29%, patient appears to be stable, we will try some clear liquids to see how these are tolerated for the patient. 06/03/16--CBC to be ordered for tomorrow. 06/04/16--CBC is pending. 06/05/16--CBC demonstrates stability of the patient's hematocrit currently of 30% . I suspect that a fair amount of this is nutritional, in addition to the peptic ulcer disease seen in the duodenal bulb and erosive gastritis. 06/06/16--We'll simply observe this for the present time. 06/07/16--Suggest repeat CBC over the weekend, post surgery. 06/10/16--His hematocrit is stable this point at 27%. We'll continue to observe over time. Current Visit: Yes Gastroenterology - PN: Subj Interval history: Patient is doing very well considering his surgery and the underlying chronic pancreatitis. Is having a little bit of nausea but did not vomit with this 3 solid meals yesterday. He is due to go home today. He can follow up with me in 6 weeks in the office. He is tolerating his oral Protonix. Exam (Progress Note) - Constitutional Vitals: Period Temp Pulse Resp BP Sys/Vaca Pulse Ox Last 24 Hr 97.3 F-97.7 F 81-88 14-20 112-127/63-76 98-100 General appearance: no acute distress - Head Head exam: Present: normocephalic - Eye Eye exam: Present: EOMI - Respiratory Respiratory exam: Present: clear to auscultation bilaterally. Absent: rhonchi, stridor, wheezes - Cardiovascular Cardiovascular exam: Present: regular rate and rhythm - GI/Abdominal GI/Abdominal exam: Present: normal bowel sounds, distended, tenderness (noted in all quadrants but particularly around the wound site on either side in the lower abdomen), soft. Absent: guarding, rebound - Extremities Exam Extremities exam: Present: other (emaciated with extreme muscle loss). Absent: edema - Back Exam Back exam: Present: normal inspection - Neurological Exam Neurological exam: Present: alert, oriented X3, CN II-XII intact. Absent: motor sensory deficit - Psychiatric Psychiatric exam: Present: normal affect, normal mood - Skin Skin exam: Present: warm Results - Labs CBC & BMP: 06/10/16 04:00 06/09/16 04:00 Specialty Discharge - Follow Up or Referrals Follow up with: Tyron Noriega III., MD [Physician] - 1 Week
[2016-06-11] MEDS ORDERED: FERROUS SULFATE 325 MG TABLET PO SCH (09:00)
[2016-06-11 09:12] VITALS: BP 122/58
== END 2016-06-11 10:30 | disposition home or self-care (01) | DRG 326 ==
LOC: EDUNIT# → EDBD → N.ED 03:34 → N.EDINP 05:15 → N.TELEN 05:47 → N.EDINP 07:51 → N.ICU 08:23 → N.4E 06-04 10:24
PROVIDERS: ADMIT Family Medicine; ATTEND Family Medicine

== ENCOUNTER 2016-09-14 17:26 | Inpatient (IN) ==
[2016-09-14] MEDS ORDERED: ONDANSETRON 4 MG/2 ML VIAL IV STA ×2 (18:31→19:16)
[2016-09-14] MEDS ORDERED: SODIUM CHLORIDE 0.9% 1,000 ML IV STA (18:31)
[2016-09-14] MEDS ORDERED: HYDROmorphone 2 MG/1 ML VIAL IV STA ×2 (18:31→20:42)
--- NOTE | 2016-09-14 18:42 | Emergency Department Note ---
IRobbin Emily, am scribing for, and in the presence of, Sneha Horton DO 18:40. IClifford Debra, DO, personally performed the services described in this documentation, ascribed by Annamaria Siegel in my presence, and it is both accurate and complete 842 . 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 Pt's BP is 156/122 in ED. He notes having pancreatitis few months back due ulcer as a result of heavy drinking of ETOH since he was 17 yrs old. Pt notes not having any ETOH in the past 3 yrs. Pt notes having low output, nausea, weight loss, and diaphoretic but denies emesis. Pt is a smoker. PMHx of anxiety disorder, vertigo, seizures. Onset (ago): hour(s) Consistency: constant Severity: mild, moderate Severity scale (1-10): 4 Quality: aching Allergies/Adverse Reactions: Allergies Allergy/AdvReac Type Severity Reaction Status Date / Time No Known Allergies Allergy Verified 09/14/16 17:35 Home Medications: Home Medications Medication Instructions Recorded Confirmed Type Acetaminophen Tab [Tylenol Tab] 650 mg PO Q6H PRN #0 tablet 06/11/16 Rx Ferrous Sulfate Tab [Feosol 325 mg PO DAILY #30 tablet 06/11/16 Rx Original Tab] Pantoprazole Tab [Protonix Tab] 40 mg PO BID@0700,1900 #60 tablet 06/11/16 Rx fentaNYL 50 MCG/HR PATCH 1 patch TRANSDERM Q3DAY #10 patch 06/11/16 Rx [Duragesic 50 Patch] Review of System - Review of System 12 point system: reviewed and no additional remarkable complaints except as stated - Review of System Constitutional: Present: diaphoresis, weakness, weight loss. Absent: fever Head/Ears/Nose/Throat: Absent: nasal drainage Respiratory: Absent: cough, respiratory distress Cardiovascular: Absent: chest pain, syncope Gastrointestinal: Present: abdominal pain (radiates into left side of groin area ), nausea. Absent: vomiting Genitourinary male: Present: other (low output). Absent: dysuria Musculoskeletal: Absent: arm pain, leg pain, neck pain Skin: Absent: rash Neurological: Absent: headache, numbness, confusion, vertigo Medical,Surgical,& Family Hx - Medical History Psychological: History of: Anxiety Disorders Neurology: History of: Seizures, Vertigo Respiratory: No history of: Respiratory Problems Gastrointestinal: History of: Gastrointestinal Bleed (this admit) Musculoskeletal: No history of: Amputation Hematology: History of: Anemia (current this admit), Bleeding Problems (GI bleed this admit) Other: History of: Miscellaneous Medical Problems (Drug and alcohol abuse in the past) - Surgical History Cardiac Surgeries: Patient Denies: Femoral-Popliteal Bypass Graft, Cardiac Catheterization, Cardiac Surgery, Carotid Endarterectomy, Internal Defibrillator, Vascular Access Devices Thoracic Surgeries: Patient denies;: Kidney (Renal Surgery), Lithotripsy, Nephrectomy, Organ Transplant, Lobectomy Neurologic Surgeries: Patient denies: Neurologic Surgery HEENT Surgeries: Patient denies: Carotid Endarterectomy, Eye Surgery, Thyroid Surgery, Tonsilectomy & Adenoidectomy Abdominal Surgeries: Surgical HX of: Abdominal Surgery (Drainage of pancreatic pseudocyst) Patient denies: Splenectomy Reproductive Surgeries: Patient denies;: Cystoscopy, Genitourinary Surgery, Prostate Surgery Orthopedic Surgeries: Patient denies;: Implanted Devices, Orthopedic Surgery, Spinal Surgery, Total Hip Replacement, Total Knee Replacement - Family History Family History: noncontributory - Social History Smoking Status: Smoker, status unknown Frequency of Alcohol Use: None Type of Drug Use: None Marital Status: Single Functional capacity: independent ambulation Exam Vital Signs: Vital Signs Temperature 98.1 F 09/14/16 18:22 Pulse Rate 84 09/14/16 18:45 Respiratory Rate 18 09/14/16 18:45 Blood Pressure 169/121 09/14/16 18:45 O2 Sat by Pulse Oximetry 100 09/14/16 18:45 - General General appearance: alert, in no apparent distress, other (thin; cachectic) - Head Head exam: Present: atraumatic, normocephalic - Eye Eye exam: Present: PERRL, EOMI, other (sunken orbits) - ENT ENT exam: Present: mucous membranes moist. Absent: mucous membranes dry - Neck Neck exam: Present: full ROM. Absent: tenderness - Chest Chest inspection: Present: symmetric chest wall rise. Absent: tenderness - Respiratory Respiratory exam: Present: normal lung sounds bilaterally. Absent: respiratory distress - Cardiovascular Cardiovascular exam: Present: regular rate, normal rhythm, normal heart sounds - Abdominal Exam Abdominal exam: Present: soft, tenderness (Mild LUQ), normal bowel sounds, other (old scar from previous surgery, midline). Absent: distention, guarding, rebound - Extremities Exam Extremities exam: Present: full ROM. Absent: tenderness, pedal edema - Back Exam Back exam: Present: full ROM. Absent: tenderness, CVA tenderness (R), CVA tenderness (L) - Neurological Exam Neurological exam: Present: alert, oriented X3, CN II-XII intact. Absent: motor sensory deficit - Psychiatric Psychiatric exam: Present: normal affect, normal mood - Skin Skin exam: Present: warm, dry Course Course Narrative: spoke with Dr Peguero who will admit pt. will call sx. spoke with Dr Gutierrez who will take pt to the OR. Results - Labs CBC & BMP: 09/14/16 18:42 09/14/16 18:42 Lab Results: I have reviewed the patients labs Labs: Laboratory Tests 09/14/16 18:42 WBC 13.2 H Hgb 11.0 L Hct 36.4 L MCV 69.3 L MCH 21 L MCHC 30.2 L RDW 20.1 H Plt Count 527 H MPV 9.1 L Neut % (Auto) 81.4 H Lymph % (Auto) 9.4 L Neut # (Auto) 10.8 H Lymph # (Auto) 1.2 L [place] # (Auto) 1.1 H Laboratory Tests 09/14/16 18:31 Urine Color Yellow Urine Appearance Slightly hazy Urine pH 5.0 Urine Urobilinogen < 2.0 H Urine RBC <1 Urine WBC 1 Ur Squamous Epith Cells Occasional Urine Bacteria Occasional Hyaline Casts 2 Urine Mucus Moderate Laboratory Tests 09/14/16 18:42 Sodium 134 L BUN 6 L Creatinine 0.40 L Glucose 114 H Calculated Osmolality 266.2 L ALT 10 L Alkaline Phosphatase 150 H Albumin 2.7 L Globulin 3.8 H Albumin/Globulin Ratio 0.7 L - Diagnostic Findings Procedure: Abdominal x-ray: report reviewed by me (Moderate amount of retained stool in the colon. Pancreatic calcifications such as those which can be seen chronic pancreatitis. No obvious acute process otherwise.), CT Abdomen and Pelvis: report reviewed by me (There is a small amount of pneumoperitoneum of uncertain etiology. Perforated viscus must be considered. There is a 4 quadrant ascites. Chronic and potential superimposed acute pancreatitis. There is a pancreatic psuedocyst lateral to the head of the pancreas which has decreased in size since the comparison study.) Disposition Clinical Impression: Abdominal pain, Free intraperitoneal air Case discussed with: patient, patient's family Disposition: Still a Patient Condition: Stable Time of Disposition: 21:04
[2016-09-14] MEDS ORDERED: ONDANSETRON 4 MG/2 ML VIAL ONE ×3 (18:43→21:30)
[2016-09-14] MEDS ORDERED: HYDROmorphone 2 MG/1 ML VIAL ONE ×4 (18:44→22:55)
[2016-09-14 18:48] LABS: Basophils % 0.3 % (0.0-0.8); Eosinophils % 0.1 % (0.00-10.9); Hematocrit 36.4 VOL% (42.0-52.0); Immature Granulocytes % 0.5 %; Immature Granulocytes Absolute 0.06 #; Lymphocytes # 1.2 10*3/uL (1.4-4.0); Lymphocytes % 9.4 % (21.2-54.2); Mean Corpuscular HGB Conc 30.2 GM/DL (32-36); Mean Corpuscular Hemoglobin 21 PG (27-34); Mean Corpuscular Volume 69.3 FL (87-102); Mean Platelet Volume 9.1 FL (9.6-12.0); Monocytes # 1.1 10*3/uL (0.11-0.8); Monocytes % 8.3 % (1.7-12.7); Neutrophils # 10.8 10*3/uL (1.4-7.4); Neutrophils % 81.4 % (38.7-73.9); Platelet Count 527 T/CUMM (130-400); Red Blood Count 5.25 MC/CUMM (3.8-5.5); Red Cell Distribution Width 20.1 % (9.3-17.3); White Blood Count 13.2 T/CUMM (4-12)
[2016-09-14 18:55] LABS: Apearance,Urine Slightly Hazy (Clear); Bacteria,Urine Occasional /HPF (Few); Bilirubin,Urine Negative (Negative); Blood, Urine Negative (Negative); Glucose,Urine (UA) Negative (Negative); Hyaline Casts,Urine 2 /LPF (0-3); Ketones,Urine Negative (Negative); Mucus,Urine Moderate /LPF (Occasional); Nitrite,Urine Negative (Negative); Protein,Urine Negative; RBC,Urine <1 /HPF (0-4); Squamous Epithelial Cell,Urine Occasional /HPF (0-10); Urine Color Yellow (Yellow); Urine Specific Gravity 1.034 (1.001-1.035); Urine Urobilinogen < 2.0 EU/DL (0.2-1.0); WBC,Urine 1 /HPF (0-6)
[2016-09-14 19:13] LABS: Albumin 2.7 G/DL (3.4-5.0); Bilirubin,Total 0.4 MG/DL (0.2-1.0); Calcium 9.9 MG/DL (8.5-10.1); Osmolality,Calculated 266.2 MOS/KG (273-304); Potassium 4.3 MMOL/L (3.5-5.1); Total Protein 6.5 G/DL (6.4-8.3)
[2016-09-14] MEDS ORDERED: MORPHINE 2 MG/1 ML SYRINGE IV STA ×2 (19:16→20:37)
[2016-09-14] MEDS ORDERED: MORPHINE 2 MG/1 ML SYRINGE ONE ×2 (19:16→20:34)
--- NOTE | 2016-09-14 19:37 | XRay Report ---
History: Abdominal pain, radiating to left flank and groin area Date: 09/14/2016 Study: Flat and decubitus abdomen Comparison exam: May 31, 2016 abdominal x-ray There is no evidence of pneumoperitoneum. The bowel gas pattern is nonspecific without dominga mechanical obstruction. There is a moderate amount of retained stool in the colon. There are some moderate pancreatic calcifications such as those which can be seen with chronic pancreatitis. There is no acute osseous abnormality. Impression: Moderate amount of retained stool in the colon. Pancreatic calcifications such as those which can be seen with chronic pancreatitis. No obvious acute process otherwise PROCEDURE INTERPRETED AT [facility] DEPARTMENT OF RADIOLOGY Final Report Signed by: Dr. Sabine Damian
--- NOTE | 2016-09-14 20:37 | CT Report ---
History: Abdominal pain. Pancreatitis. Nausea Date: 09/14/2016 Study: CT abdomen and pelvis with IV contrast Comparison exam: CT abdomen May 30, 2016 Technique: Spiral CT sections were obtained from the lung bases to the pubic symphysis following 80 mL Omnipaque [address] exam was performed using one or more of the following dose reduction techniques: Automated exposure control, adjustment of the mA and/or kV according to patient size, or use of iterative reconstruction technique. Critical test result. Verbal report was given to Dr. Horton at 8:[address] abdomen: The partially visualized lung bases are generally clear. There is no gross pleural or pericardial effusion. There is mild perihepatic and perisplenic ascites with some mild ascites in either paracolic gutter and also in the bilateral pelvis. The liver, bile ducts, spleen, adrenal glands, and kidneys appear normal. There is moderate distention of the fluid-filled gallbladder without evidence of radiopaque gallstone. There is some diffuse pancreatic enlargement. There are scattered pancreatic parenchymal calcifications compatible with changes of chronic pancreatitis as before. There is a suspected 26 mm diameter pseudocyst at the lateral margin of the pancreatic head, previously at 45 mm. There is edema and/or fluid in the anterior right pararenal space adjacent to the head of the pancreas.. There is no aortic aneurysm. There is a small amount of pneumoperitoneum of uncertain etiology. There are some scattered tiny gas density bubbles anterior to the lateral segment of the left lobe of the liver as well as more inferiorly. A definite source for this pneumoperitoneum is not seen. There is no dominga bowel obstruction. CT pelvis: There is a moderate amount of free fluid in the pelvis. There is no definite soft tissue pelvic mass. Impression: There is a small amount of pneumoperitoneum of uncertain etiology. Perforated viscus must be considered There is 4 quadrant ascites Chronic and potential superimposed acute pancreatitis. There is a pancreatic pseudocyst lateral to the head of the pancreas which has decreased in size since the comparison study PROCEDURE INTERPRETED AT [facility] ([facility]) DEPARTMENT OF RADIOLOGY Final Report Signed by: Dr. Sabine Damian
[2016-09-14] MEDS ORDERED: HYDROmorphone 2 MG/1 ML VIAL IV ONE (21:22)
--- NOTE | 2016-09-14 21:29 | General Surg History&Physical ---
Assessment and Plan - Time spent with patient Time spent with patient: Less than 30 minutes (1) Free intraperitoneal air Status: Acute Assessment and plan: He appears to have peritonitis with a small amount of pneumoperitoneum. There is associated ascites. His presentation and imaging are worrisome for a perforated viscus. He has a known history of peptic ulcer disease. He is likely to have a very hostile abdomen. He was very difficult to operate on before. His upper abdomen was very dense and fibrosed. I discussed the need for exploration and washout of any contamination and repair of perforated viscus if it is found. Procedure and risk of been explained in detail and he wishes to proceed Current Visit: Yes (2) PUD (peptic ulcer disease) Status: Acute Assessment and plan: I think this is the most likely site of perforation. He had a normal serum gastrin level before Current Visit: No (3) Pancreatic pseudocyst Status: Acute Assessment and plan: The pseudocyst in the head of his pancreas is smaller than 3 months ago Current Visit: No History of Present Illness Chief complaint: Abdominal pain History of present illness: Mr. Herman is a 30 year old male Who had increasing constant epigastric abdominal pain for the last week that became suddenly severe and diffuse today. This is accompanied by nausea but no vomiting. The pain is worse with any kind of movement or deep breathing but feels better if she stays still. Pain does not radiate. He has not had hematemesis. He has not had fever or chills. He has an extensive history of chronic pancreatitis as well as peptic ulcer disease with gastric outlet obstruction. His last surgery was back in May where I did a Art-en-Y gastrojejunostomy to relieve his gastric outlet obstruction. He had a normal serum gastrin at that time. Home Medications Medication Instructions Recorded Confirmed Type Acetaminophen Tab [Tylenol Tab] 650 mg PO Q6H PRN #0 tablet 06/11/16 Rx Ferrous Sulfate Tab [Feosol 325 mg PO DAILY #30 tablet 06/11/16 Rx Original Tab] Pantoprazole Tab [Protonix Tab] 40 mg PO BID@0700,1900 #60 tablet 06/11/16 Rx fentaNYL 50 MCG/HR PATCH 1 patch TRANSDERM Q3DAY #10 patch 06/11/16 Rx [Duragesic 50 Patch] Allergies Allergy/AdvReac Type Severity Reaction Status Date / Time No Known Allergies Allergy Verified 09/14/16 17:35 Medical,Surgical,& Family Hx - Medical History Psychological: History of: Anxiety Disorders Neurology: History of: Seizures, Vertigo Respiratory: No history of: Respiratory Problems Gastrointestinal: History of: Gastrointestinal Bleed (this admit), Pancreatitis , GI Problems Musculoskeletal: No history of: Amputation Hematology: History of: Anemia (current this admit), Bleeding Problems (GI bleed this admit) Other: History of: Miscellaneous Medical Problems (Drug and alcohol abuse in the past) - Surgical History Cardiac Surgeries: Patient Denies: Femoral-Popliteal Bypass Graft, Cardiac Catheterization, Cardiac Surgery, Carotid Endarterectomy, Internal Defibrillator, Vascular Access Devices Thoracic Surgeries: Patient denies;: Kidney (Renal Surgery), Lithotripsy, Nephrectomy, Organ Transplant, Lobectomy Neurologic Surgeries: Patient denies: Neurologic Surgery HEENT Surgeries: Patient denies: Carotid Endarterectomy, Eye Surgery, Thyroid Surgery, Tonsilectomy & Adenoidectomy Abdominal Surgeries: Surgical HX of: Abdominal Surgery (Drainage of pancreatic pseudocyst) Patient denies: Splenectomy Reproductive Surgeries: Patient denies;: Cystoscopy, Genitourinary Surgery, Prostate Surgery Orthopedic Surgeries: Patient denies;: Implanted Devices, Orthopedic Surgery, Spinal Surgery, Total Hip Replacement, Total Knee Replacement - Family History Family History: noncontributory - Social History Smoking Status: Smoker, status unknown Frequency of Alcohol Use: None Type of Drug Use: None Exam - Constitutional Vitals: Period Temp Pulse Resp BP Sys/Vaca Pulse Ox Last 24 Hr 98.1 F-98.1 F 81-95 18-18 144-169/100-121 100-100 General appearance: no acute distress, cachectic - Head Head exam: Present: normocephalic - Eye Eye exam: Absent: scleral icterus - ENT Mouth exam: Present: normal voice - Neck Neck exam: Present: trachea midline. Absent: tenderness - Respiratory Respiratory exam: Present: clear to auscultation bilaterally. Absent: accessory muscle use - Cardiovascular Cardiovascular exam: Present: RRR - GI/Abdominal GI/Abdominal exam: Present: firm, guarding, tenderness, rebound. Absent: distended, mass - Extremities Exam Extremities exam: Absent: edema - Neurological Exam Neurological exam: Present: alert, oriented X3. Absent: motor sensory deficit Speech: Present: normal - Skin Skin exam: Present: normal color - Constitutional Constitutional: Present: anorexia. Absent: chills, fever(s) - Cardiovascular Cardiovascular: Absent: dyspnea, dyspnea on exertion, syncope - Respiratory Respiratory: Absent: dyspnea, hemoptysis, dyspnea on exertion - Gastrointestinal Gastrointestinal: Present: abdominal pain, nausea. Absent: coffee ground emesis , hematemesis, hematochezia, melena, vomiting, jaundice - Genitourinary Genitourinary: Absent: hematuria - Musculoskeletal Musculoskeletal: Present: back pain - Neurological Neurological: Absent: focal weakness, syncope - Endocrine Endocrine: Absent: polyuria Hematologic/Lymphatic: Absent: easy bleeding, easy bruising Results - Labs CBC & BMP: 09/14/16 18:42 09/14/16 18:42 Lab Results: I have reviewed the past 24 hour labs - Diagnostic Findings Procedure: CT Abdomen and Pelvis: image reviewed by me, report reviewed by me
[2016-09-14] MEDS ORDERED: SUCCINYLCHOLINE 200 MG/10 ML VIAL ONE (21:30)
[2016-09-14] MEDS ORDERED: NEOSTIGMINE 10 MG/10 ML VIAL ONE (21:30)
[2016-09-14] MEDS ORDERED: LIDOCAINE 2% 5 ML VIAL ONE (21:30)
[2016-09-14] MEDS ORDERED: PROPOFOL 200 MG/20 ML VIAL IV ONE (21:30)
[2016-09-14] MEDS ORDERED: PHENYLEPHRINE 1 MG/10 ML SYRINGE IV ONE (21:30)
[2016-09-14] MEDS ORDERED: ROCURONIUM 100 MG/10 ML VIAL IV ONE (21:30)
[2016-09-14] MEDS ORDERED: LIDOCAINE 2% TOP JELLY 5 ML TUBE TOP ONE (21:30)
[2016-09-14] MEDS ORDERED: GLYCOPYRROLATE 0.4 MG/2 ML VIAL ONE (21:30)
[2016-09-14] MEDS ORDERED: KETOROLAC 30 MG/1 ML VIAL ONE (21:30)
[2016-09-14] MEDS ORDERED: ceFAZolin 1,000 MG VIAL ONE (21:53)
[2016-09-14] MEDS ORDERED: ONDANSETRON 4 MG/2 ML VIAL IV PRN ×2 (22:27→23:02)
--- NOTE | 2016-09-14 22:27 | Operative Note ---
Date of procedure: 09/14/16 Pre-op diagnosis: Pneumoperitoneum Post-op diagnosis: same Procedure: Anastacio patch closure of perforated gastric ulcer at jejunal anastomosis Findings and technique: After informed consent was obtained the patient was brought to the operating room and placed in supine position. After successful induction of general anesthesia the patient's abdomen was prepped and draped in usual sterile fashion. The abdomen is open to his old upper midline scar where diffuse ascites and contamination was noted. There was no particulate matter. This had an appearance of gastric type ascites. This was suctioned out. Site of perforation was identified just below his gastrojejunostomy just on the jejunal side of the anastomosis. This was in the Art-en-Y limb. This ulcer was about 1/2 cm in diameter and had clean edges with no associated mass. His abdomen was irrigated and all contamination removed. The omentum was healthy. I sutured the omentum over this with 3-0 silk Lembert sutures. Good closure was obtained. A 10 mm JOSE ROBERTO drain was placed adjacent to this and brought out through separate stab incision in the right upper quadrant. Sponge and instrument counts were correct at the time of closure of the midline fascia with running #1 PDS suture. The skin was closed with skin clips. He did receive perioperative IV antibiotics. Anesthesia: GETA Surgeon / Physician: Tyron Noriega III. Estimated blood loss: minimal Specimens: none sent Condition: stable Disposition: PACU Results - Labs CBC & BMP: 09/14/16 18:42 09/14/16 18:42 Discharge Plan - Discharge Data Disposition: Still a Patient - Discharge Medications No Action Ferrous Sulfate Tab [Feosol Original Tab] 325 mg PO DAILY #30 tablet Pantoprazole Tab [Protonix Tab] 40 mg PO BID@0700,1900 #60 tablet fentaNYL 50 MCG/HR PATCH [Duragesic 50 Patch] 1 patch TRANSDERM Q3DAY #10 patch Acetaminophen Tab [Tylenol Tab] 650 mg PO Q6H PRN #0 tablet PRN Reason: Fever > 100.4 Or Headache - Follow Up or Referral - Forms/Instructions
[2016-09-14 22:38] LABS: Apearance,Urine CLOUDY (Clear); Urine Color Yellow (Yellow)
[2016-09-14 22:39] LABS: Bacteria,Urine Occasional /HPF (Few); Bilirubin,Urine Negative (Negative); Blood, Urine Negative (Negative); Glucose,Urine (UA) Negative (Negative); Ketones,Urine Negative (Negative); Nitrite,Urine Negative (Negative); Protein,Urine Negative; RBC,Urine 2 /HPF (0-4); Urine Specific Gravity > 1.060 (1.001-1.035); Urine Urobilinogen < 2.0 EU/DL (0.2-1.0); WBC,Urine 3 /HPF (0-6)
--- NOTE | 2016-09-14 22:48 | Anesthesia Post-Op ---
Anesthesia Post OP - Post Ansesthetic Evaluation Patient seen in post op: Yes Resp: within normal limits CV: within normal limits Mental: within normal limits Temp: within normal limits [id number]: within normal limits Nausea and Vomiting: within normal limits Pain: within normal limits
[2016-09-14] MEDS ORDERED: MIDAZOLAM 2 MG/2 ML VIAL ONE (22:50)
[2016-09-14] MEDS ORDERED: SEVOFLURANE 1 UNIT/15 MINUTE INH ONE (22:50)
[2016-09-14] MEDS ORDERED: ACETAMINOPHEN 1,000 MG/100 ML VIAL IV ONE (22:51)
[2016-09-14] MEDS ORDERED: fentaNYL 100 MCG/2 ML VIAL ONE (22:51)
[2016-09-14] MEDS ORDERED: LACTATED RINGERS 2,000 ML IV ONE (22:51)
[2016-09-14] MEDS: HYDROmorphone 2 MG/1 ML VIAL IV PRN ×4 (22:57→23:12)
[2016-09-14] MEDS ORDERED: MEPERIDINE 25 MG/1 ML VIAL ONE (23:22)
[2016-09-14] MEDS: MEPERIDINE 25 MG/1 ML VIAL IV PRN ×2 (23:23→23:33)
[2016-09-14] MEDS ORDERED: MEPERIDINE 25 MG/1 ML VIAL IV PRN (23:48)
[2016-09-15] MEDS ORDERED: MIDAZOLAM 2 MG/2 ML VIAL IV ONE (00:11)
[2016-09-15] MEDS: MORPHINE PCA 30 MG/30 ML SYRINGE IV SCH ×3 (01:25→16:03)
[2016-09-15] MEDS: DEXTROSE 5% LACTATED RINGERS 1,000 ML IV SCH ×4 (02:45→22:59)
--- NOTE | 2016-09-15 09:33 | Event Note ---
He feels much better. His pain is largely resolved. He is not having nausea or vomiting he is not having much from his nasogastric tube. His urine output is adequate. We will discontinue his Burris catheter and get him up out of bed.
[2016-09-15] MEDS: PANTOPRAZOLE 40 MG VIAL IV SCH (09:57)
[2016-09-15] MEDS: ENOXAPARIN 30 MG/0.3 ML SYRINGE SUBCUT SCH (17:09)
[2016-09-15] MEDS ORDERED: NALOXONE 0.4 MG/ML VIAL IV PRN (18:13)
[2016-09-15] MEDS: HYDROmorphone PCA 30 MG/30 ML SYRINGE IV SCH (18:49)
[2016-09-16] MEDS ORDERED: LORazepam 2 MG/1 ML VIAL IV PRN (05:57)
--- NOTE | 2016-09-16 06:10 | Event Note ---
He has postoperative pain as expected. His abdomen looks good. There is nothing but serosanguineous drainage from his JOSE ROBERTO drain. I see no evidence of leak. He is afebrile with stable vital signs. We will cut back his IV fluids as he is having large urine output.
[2016-09-16] MEDS: PANTOPRAZOLE 40 MG VIAL IV SCH (08:23)
[2016-09-16] MEDS: DEXTROSE 5% LACTATED RINGERS 1,000 ML IV SCH ×3 (13:38→20:42)
[2016-09-16] MEDS: ENOXAPARIN 30 MG/0.3 ML SYRINGE SUBCUT SCH (17:18)
[2016-09-17] MEDS: HYDROmorphone PCA 30 MG/30 ML SYRINGE IV SCH (05:15)
[2016-09-17 06:39] LABS: Calcium 7.4 MG/DL (8.5-10.1); Osmolality,Calculated 268.8 MOS/KG (273-304); Potassium 3.6 MMOL/L (3.5-5.1)
[2016-09-17 07:45] LABS: Basophils % 0.1 % (0.0-0.8); Eosinophils % 0.1 % (0.00-10.9); Hematocrit 22.7 VOL% (42.0-52.0); Immature Granulocytes % 0.4 %; Immature Granulocytes Absolute 0.04 #; Lymphocytes # 0.5 10*3/uL (1.4-4.0); Lymphocytes % 5.3 % (21.2-54.2); Mean Corpuscular Hemoglobin 21 PG (27-34); Mean Corpuscular Volume 69.8 FL (87-102); Mean Platelet Volume 9.7 FL (9.6-12.0); Monocytes # 0.7 10*3/uL (0.11-0.8); Monocytes % 6.7 % (1.7-12.7); Neutrophils # 8.8 10*3/uL (1.4-7.4); Neutrophils % 87.4 % (38.7-73.9); Platelet Count 245 T/CUMM (130-400); Red Blood Count 3.25 MC/CUMM (3.8-5.5); Red Cell Distribution Width 19.5 % (9.3-17.3); White Blood Count 10.1 T/CUMM (4-12)
[2016-09-17 07:49] LABS: Hemoglobin 6.8 GM/DL (14.0-18.0)
--- NOTE | 2016-09-17 08:48 | Event Note ---
He feels much better. He has much less pain. He pulled out his nasogastric tube yesterday evening when he got agitated. He has had no problems since then and has had some flatus. He has not had nausea or vomiting or just there is serosanguineous drainage in his JOSE ROBERTO drain. We will start full liquids.
[2016-09-17 09:06] LABS: Hematocrit 22.3 VOL% (42.0-52.0); Hemoglobin 6.8 GM/DL (14.0-18.0)
[2016-09-17] MEDS ORDERED: SODIUM CHLORIDE 0.9% 250 ML IV PRN (09:11)
[2016-09-17] MEDS: PANTOPRAZOLE 40 MG VIAL IV SCH (09:42)
[2016-09-17] MEDS: DEXTROSE 5% LACTATED RINGERS 1,000 ML IV SCH ×3 (10:56→21:18)
--- NOTE | 2016-09-17 12:36 | Pain Management Consult Note ---
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 Will reinstate his Duragesic 50 for chronic pancreatic pain and Dr. Peguero will mamge this for him outpatient. 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 Expectations are that he should be discharged only on the Duragesic dose, and he agrees. Current Visit: Yes History of Present Illness Chief complaint: post op abdominal pain History of present illness: Mr. Herman is a 30 year old male last seen 5 years ago and under the care of Dr. Peguero with Duragesic 50 for chronic GI pain, chronic pancreatitis and recent ulcer perforation s/p laparotomy for repair last Friday. Home Medications Medication Instructions Recorded Confirmed Type Acetaminophen Tab [Tylenol Tab] 650 mg PO Q6H PRN #0 tablet 06/11/16 09/15/16 Rx Ferrous Sulfate Tab [Feosol 325 mg PO DAILY #30 tablet 06/11/16 09/15/16 Rx Original Tab] Pantoprazole Tab [Protonix Tab] 40 mg PO BID@0700,1900 #60 tablet 06/11/1609/15 Rx Allergies Allergy/AdvReac Type Severity Reaction Status Date / Time No Known Allergies Allergy Verified 09/14/16 17:35 Medical,Surgical,& Family Hx - Medical History Psychological: History of: Anxiety Disorders Neurology: History of: Seizures, Vertigo Respiratory: No history of: Respiratory Problems Gastrointestinal: History of: Gastrointestinal Bleed (this admit), Pancreatitis , GI Problems Musculoskeletal: No history of: Amputation Hematology: History of: Anemia (current this admit), Bleeding Problems (GI bleed this admit) Other: History of: Miscellaneous Medical Problems (Drug and alcohol abuse in the past) - Surgical History Cardiac Surgeries: Patient Denies: Femoral-Popliteal Bypass Graft, Cardiac Catheterization, Cardiac Surgery, Carotid Endarterectomy, Internal Defibrillator, Vascular Access Devices Thoracic Surgeries: Patient denies;: Kidney (Renal Surgery), Lithotripsy, Nephrectomy, Organ Transplant, Lobectomy Neurologic Surgeries: Patient denies: Neurologic Surgery HEENT Surgeries: Patient denies: Carotid Endarterectomy, Eye Surgery, Thyroid Surgery, Tonsilectomy & Adenoidectomy Abdominal Surgeries: Surgical HX of: Abdominal Surgery (Drainage of pancreatic pseudocyst) Patient denies: Splenectomy Reproductive Surgeries: Patient denies;: Cystoscopy, Genitourinary Surgery, Prostate Surgery Orthopedic Surgeries: Patient denies;: Implanted Devices, Orthopedic Surgery, Spinal Surgery, Total Hip Replacement, Total Knee Replacement - Social History Smoking Status: Smoker, status unknown Frequency of Alcohol Use: None Type of Drug Use: None Exam - Constitutional Vitals: Period Temp Pulse Resp BP Sys/Vaca Pulse Ox Last 24 Hr 98.8 F-100.8 F 81-89 18-18 123-144/81-94 96-100 Results - Labs CBC & BMP: 09/17/16 09:01 09/17/16 05:09
[2016-09-17] MEDS: CELECOXIB 200 MG CAPSULE PO SCH (15:00)
[2016-09-17 18:47] LABS: Hematocrit 21.4 VOL% (42.0-52.0); Hemoglobin 6.5 GM/DL (14.0-18.0)
[2016-09-18 01:06] LABS: Hematocrit 21.2 VOL% (42.0-52.0)
[2016-09-18 01:15] LABS: Hemoglobin 6.3 GM/DL (14.0-18.0)
[2016-09-18 06:25] LABS: Basophils % 0.1 % (0.0-0.8); Eosinophils # 0.1 10*3/uL (0.0-0.87); Eosinophils % 1.2 % (0.00-10.9); Hematocrit 23.3 VOL% (42.0-52.0); Hemoglobin 6.9 GM/DL (14.0-18.0); Immature Granulocytes % 0.4 %; Immature Granulocytes Absolute 0.03 #; Lymphocytes # 0.5 10*3/uL (1.4-4.0); Lymphocytes % 7.3 % (21.2-54.2); Mean Corpuscular HGB Conc 29.6 GM/DL (32-36); Mean Corpuscular Hemoglobin 21 PG (27-34); Mean Corpuscular Volume 70.4 FL (87-102); Mean Platelet Volume 9.8 FL (9.6-12.0); Monocytes # 0.5 10*3/uL (0.11-0.8); Monocytes % 7.2 % (1.7-12.7); Neutrophils # 6.1 10*3/uL (1.4-7.4); Neutrophils % 83.8 % (38.7-73.9); Platelet Count 252 T/CUMM (130-400); Red Blood Count 3.31 MC/CUMM (3.8-5.5); Red Cell Distribution Width 19.3 % (9.3-17.3); White Blood Count 7.2 T/CUMM (4-12)
--- NOTE | 2016-09-18 07:49 | Event Note ---
He feels well. His pain is much better controlled and I appreciate help from pain management. He is tolerating liquids. He has no nausea or vomiting is passing flatus. His abdomen is benign and there is serous drainage in his JOSE ROBERTO drain. It is unclear why he had a perforated ulcer. He had a normal serum gastrin level several months ago. He is not a good candidate for a vagotomy. I was worried about doing a truncal vagotomy because of the intense scarring along the lesser curve and along the medial aspect of the EG junction. I think that this would be very difficult to do and also I was worried about side effects and is emaciated patient. His inability to maintain weight is concerning. He does state that he was taking Protonix daily and has not been taking nonsteroidals. He is a smoker. I am going to get an opinion from Dr. Cervantes regarding this.
[2016-09-18] MEDS: PANTOPRAZOLE 40 MG VIAL IV SCH (09:04)
[2016-09-18] MEDS: CELECOXIB 200 MG CAPSULE PO SCH (09:04)
[2016-09-18] MEDS: DEXTROSE 5% LACTATED RINGERS 1,000 ML IV SCH ×2 (09:11→22:35)
--- NOTE | 2016-09-18 09:35 | Physician Query Form ---
CLICK EDIT DOCUMENT TO SELECT QUERY ANSWER --> OK --> SIGN Catie Reyes RN, CCDS Certified Clinical Hand Packager W) [phone] (f) [phone] [email or web address] PROVIDERS: Make your selection(s) from the choices in EACH section by typing an "x" and enter comments in the comment section. Please use your independent medical judgment in providing your response. This request does not imply that any particular answer is desired or expected. CLINICAL INDICATORS: (Providers should not edit this section) The medical record indicates that the patient was admitted with intraperitoneal air, had surgery then the HH dropped to 6.3/21.2 and the patient has a order for blood. Based on the above, could you clarify which of the following conditions you are evaluating, treating, and/or monitoring? (x ) Blood loss anemia ( x) acute ( ) chronic ( ) acute on chronic ( ) Acute blood loss anemia on baseline chronic anemia ( ) Acute blood loss anemia as a complication of a procedure ( ) Iron deficiency anemia not associated with blood loss ( ) Dilutional anemia due to IV fluids ( ) Anemia due to chemotherapy ( ) Anemia due to neoplastic disease ( ) Anemia due to chronic kidney disease ( ) Pernicious anemia ( ) Aplastic anemia ( ) Hemolytic anemia ( ) immune ( ) non-immune - please specify cause: ( ) Anemia due to other condition, please specify: ( ) Clinically unable to determine COMMENTS: PLEASE ALSO DOCUMENT RESPONSE IN PROGRESS NOTES AND/OR DISCHARGE SUMMARY Use of terms such as suspected, likely, or probable (associated with a specific diagnosis that is being evaluated, monitored, or treated as if it exists) are acceptable and can be restated in the discharge summary if not ruled out. MTDD
--- NOTE | 2016-09-18 09:43 | Physician Query Form ---
CLICK EDIT DOCUMENT TO SELECT QUERY ANSWER --> OK --> SIGN Catie Reyes RN, CCDS Certified Clinical Dough Catcher W) [phone] (f) [phone] [email or web address] PROVIDERS: Make your selection(s) from the choices in EACH section by typing an "x" and enter comments in the comment section. Please use your independent medical judgment in providing your response. This request does not imply that any particular answer is desired or expected. CLINICAL INDICATORS: (Providers should not edit this section) The medical record indicates that the patient was admitted with Intraperitoneal air, had surgery -- "Anastacio patch closure of perforated gastric ulcer at jejunal anastomosis". Please clarify the following: ( ) The above is an inherent, integral or routinely potential/expected occurrence of surgery (not a complication) ( x) The above was an inadvertent, unintended, iatrogenic, or unexpected occurrence of surgery (complication) ( ) The above is a complication but not due to the surgery, specify cause: ( ) Other, please specify: ( ) Clinically unable to determine COMMENTS: PLEASE ALSO DOCUMENT RESPONSE IN PROGRESS NOTES AND/OR DISCHARGE SUMMARY Use of terms such as suspected, likely, or probable (associated with a specific diagnosis that is being evaluated, monitored, or treated as if it exists) are acceptable and can be restated in the discharge summary if not ruled out. MTDD
[2016-09-18] MEDS ORDERED: fentaNYL 50 MCG/HR PATCH TRANSDERM SCH (10:30)
[2016-09-18 14:36] LABS: Hematocrit 25.1 VOL% (42.0-52.0); Hemoglobin 7.3 GM/DL (14.0-18.0)
[2016-09-18] MEDS: HYDROmorphone PCA 30 MG/30 ML SYRINGE IV SCH ×2 (16:45→16:46)
--- NOTE | 2016-09-18 17:35 | Gastrointestinal Consult Note ---
Assessment and Plan (1) Perforated abdominal viscus Status: Acute Assessment and plan: Patient denies using NSAIDs since he was warned about these back in May 2016. He knows these can produce ulcerations in his small bowel and has been avoiding them. I suspect that he may have some ischemia producing the breakdown at the anastomotic site but this is nearly conjecture. He states that he has been taking his Protonix twice daily and needs to continue doing this on a routine basis. His gastrin level was completely normal back in May. We will check and see if this is increased resulting in a ulceration at this time. I think that I will stop his Celebrex as this certainly can add to potential perforations in the future. We should generally try and avoid NSAIDs in a patient like this. We will increase his Protonix back to twice a day as this will give him 20 hours worth of excellent acid suppression. I think we should try another round of acid suppressing medication as well as use of pancreatic enzymes both for pain suppression and for improvement in nutritional status. These enzymes provide a negative feedback to the pancreas suppressing his function wall helping to add to digestion of the patient's food which hopefully will restore his weight closer to 150 pounds which was his baseline prior to the chronic pancreatitis and pseudocyst issues. Current Visit: Yes (2) Chronic alcoholic pancreatitis Status: Acute Assessment and plan: Patient is avoiding alcohol and is otherwise doing adequately. He cannot be eat fast but he can eat 3 full meals per day. Like Dr. Hari TY, I remain concerned that he is having suboptimal digestion of his food and adding a multivitamin to his regimen as well as lipase supplementation will likely result in improvement in his weight. Given his current weight he will need at least 12,000 of lipase but could require as much as 48,000 with each meal. See is that he is not having severe diarrhea to follow I think starting off at the 12,000 range is certainly going to be our best bet for the present. If he has not gained weight within the next 3-4 months we can certainly suspend this use of medication. I can follow him up in my office in another 3 months to see how he is doing. Will write a prescription for some Creon that he can use 1 pill with meals daily. He needs to be worn the pancreatic enzymes are incredibly expensive unfortunately. Current Visit: Yes (3) Moderate malnutrition Status: Acute Assessment and plan: Again I believe the multivitamin, Protonix and lipase at 12,000 units of lipase per meal should suffice to help this patient's nutritional intake and maximize his weight gain over the next several months. He should follow-up with me in 3 months in the office. Note that this patient was on fentanyl only prior to admission and so would just suggest trying to minimize his narcotic intake now that he is healing from his viscus perforation. This patient is predisposed to narcotic overuse. We had trouble weaning him at all back in May. Current Visit: Yes (4) Acute posthemorrhagic anemia Status: Acute Assessment and plan: Patient's hematocrit drops significantly would not hesitate to transfuse him 2 units of blood for his comfort and to provide a cushion in case he bleeds further in the future. Current Visit: No History of Present Illness Chief complaint: abdominal pain, perforated ulcer below derian en Y anast., chronic pancretits History of present illness: Mr. Herman is a 30 year old male who is known to me from previous alcohol admission last seen in consultation on 05/30/16 through 06/11/16. He has a long- standing history of alcoholic pancreatitis and was noted to have previous duodenal stricturing [address] 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 During his hospitalization the patient appeared quite cachectic and was noted to have a weight of 87 pounds. He is now up to 98 pounds and has been his usual state up until about 4 days prior to his admission at which time he had been having some steady nausea. He was having increasing slight abdominal pain and then had a sudden sharp tenderness in his left lower abdomen surprisingly that was different from his usual pain and elected to come into the emergency room for evaluation and was found to have free air under the diaphragm from a post anastomotic ulcer which was patched by Dr. Noriega. The patient previously had an upper endoscopy performed on which showed severe LA class D erosive esophagitis between 28 and 42 cm in a GE junction that showed a healed mallet healing Maria De Jesus-Bautista tear as well as a 2 cm hiatal hernia with gastritis and is corkscrew shaped stomach with residual food and large circumferential duodenal ulcer that required a Derian-en-Y anastomosis by Dr. Hari. Patient's hematocrit has been stable at 29% range back in May. When the patient first presented here on 09/14/16 his hematocrit was 36.4 and rapidly dropped down to the 22.7 range bottoming out at 21.2% he is received a total of 2 units he has not been transfused yet-- spontaneous improvement of his hematocrit back up to the 25% range. The patient does not complain of any diarrhea at baseline, but is chronically on a fentanyl patch which may be mildly constipating him. He is getting iron as well on a daily basis. He does not appear to be on a multivitamin. Site of the perforation proved to be just below the gastrojejunostomy anastomotic site, on the jejunal side. This was a Anastacio closure, and the patient is done well he is eating a full diet at this point. His main issues are his ongoing cachexia and abdominal pain possibly due to his underlying chronic pancreatitis. At this time the patient's weight is up to 98 pounds which is certainly improved from 87. His baseline weight prior to the chronic pancreatitis was 150 pounds. Gastrin level was noted to be 47 back on 06/03/16 ( normal is less than 100). Patient incidentally states that he has been off of all alcohol since we saw him last back in May. Home Medications Medication Instructions Recorded Confirmed Type Acetaminophen Tab [Tylenol Tab] 650 mg PO Q6H PRN #0 tablet 06/11/16 09/15/16 Rx Ferrous Sulfate Tab [Feosol 325 mg PO DAILY #30 tablet 06/11/16 09/15/16 Rx Original Tab] Pantoprazole Tab [Protonix Tab] 40 mg PO BID@0700,1900 #60 tablet 06/11/1609/15 Rx Allergies Allergy/AdvReac Type Severity Reaction Status Date / Time No Known Allergies Allergy Verified 09/14/16 17:35 Medical,Surgical,& Family Hx - Medical History Psychological: History of: Anxiety Disorders Neurology: History of: Seizures, Vertigo Respiratory: No history of: Respiratory Problems Gastrointestinal: History of: Gastrointestinal Bleed (this admit), Pancreatitis , GI Problems Musculoskeletal: No history of: Amputation Hematology: History of: Anemia (current this admit), Bleeding Problems (GI bleed this admit) Other: History of: Miscellaneous Medical Problems (Drug and alcohol abuse in the past) - Surgical History Cardiac Surgeries: Patient Denies: Femoral-Popliteal Bypass Graft, Cardiac Catheterization, Cardiac Surgery, Carotid Endarterectomy, Internal Defibrillator, Vascular Access Devices Thoracic Surgeries: Patient denies;: Kidney (Renal Surgery), Lithotripsy, Nephrectomy, Organ Transplant, Lobectomy Neurologic Surgeries: Patient denies: Neurologic Surgery HEENT Surgeries: Patient denies: Carotid Endarterectomy, Eye Surgery, Thyroid Surgery, Tonsilectomy & Adenoidectomy Abdominal Surgeries: Surgical HX of: Abdominal Surgery (Drainage of pancreatic pseudocyst) Patient denies: Splenectomy Reproductive Surgeries: Patient denies;: Cystoscopy, Genitourinary Surgery, Prostate Surgery Orthopedic Surgeries: Patient denies;: Implanted Devices, Orthopedic Surgery, Spinal Surgery, Total Hip Replacement, Total Knee Replacement - Social History Smoking Status: Smoker, status unknown Frequency of Alcohol Use: None Type of Drug Use: None Review of systems: Constitutional: Denies fever, chills, and vomiting with mild nausea Eyes: Denies dry eyes, and scleral icterus HENT: Denies headaches Cardiovascular: Denies acute chest pain and claudication Respiratory: Denies shortness of breath, wheezing, and difficulty breathing, denies cough Gastrointestinal: As noted in the HPI Genitourinary: Denies dysuria and hematuria Neurologic: Denies vision loss, and loss of sensation Musculoskeletal: Admits to some joint swelling, joint stiffness, and muscular weakness Psychiatric: Denies depression and jazmyne symptoms Heme-Lymph: Denies easy bruising, lymph node enlargement or tenderness, night sweats, excessive bleeding Allergies-immunologic: Denies pruritus and rhinorrhea Exam - Constitutional Vitals: Period Temp Pulse Resp BP Sys/Vaca Pulse Ox Last 24 Hr 97.4 F-99.0 F 63-77 16-20 108-128/69-82 98-100 Exam: Constitutional: Well-developed, poorly nourished with cachexia but, alert, and in no acute distress Head and face: Head: Normocephalic atraumatic, temporal wasting noted Eyes: Conjunctiva without injection, no gross scleral icterus, pupils equal and round bilaterally Ears: Intact to conversation in both ears Nose: External appearance is normal, nares patent Mouth: Oral mucous membranes moist without erythema dentition noted to be without erosion Neck: Normal appearance, no masses or tenderness, trachea midline Thyroid: Gland midline and appropriate size for age Respiratory: Normal respiratory effort, clear to auscultation without wheezes, rhonchi or rales Cardiovascular: Regular rate and rhythm, normal S1, S2, the exam is without rubs, murmurs or gallops. Gastrointestinal: Moderate diffuse tenderness mostly around the wound site , increased sensitivity to palpation of tympany, surgery site seems to be healing well, normal active bowel sounds, tone normal without rigidity or guarding, no masses present, no hepatomegaly, no spleen tip felt. No rectal exam obtained. Lymphatic: Neck without adenopathy, axilla without lymphadenopathy present Musculoskeletal: Right and left lower extremities without evidence of edema Skin and subcutaneous tissue: No rashes or ulcerations noted, normal skin turgor, digits and nails without clubbing/cyanosis/deformities. Neurologic: The patient is grossly oriented to person place and time, cranial nerves show tongue movements are normal with normal tongue extrusion midline, light touch sensation is intact. Psychiatric: No hallucinations or delusions are present, does not appear depressed Results - Labs CBC & BMP: 09/18/16 14:04 09/17/16 05:09
[2016-09-18] MEDS: LIPASE/PROTEASE/AMYLASE 4,200 UNITS CAPSULE PO SCH (18:31)
[2016-09-18] MEDS: PANTOPRAZOLE 40 MG TABLET PO SCH (21:08)
[2016-09-19 04:59] LABS: Hemoglobin 6.7 GM/DL (14.0-18.0)
[2016-09-19] MEDS ORDERED: LIPASE/PROTEASE/AMYLASE 4,200 UNITS CAPSULE PO SCH (08:00)
[2016-09-19] MEDS: PANTOPRAZOLE 40 MG TABLET PO SCH (08:22)
[2016-09-19] MEDS: LIPASE/PROTEASE/AMYLASE 4,200 UNITS CAPSULE PO SCH ×2 (08:23→11:41)
[2016-09-19] MEDS ORDERED: MULTIVITAMIN (CENTRUM) TABLET PO SCH (09:00)
--- NOTE | 2016-09-19 10:16 | Event Note ---
He feels well. He has minimal pain in his been active and eating normally. There is just clear serous drainage in his JOSE ROBERTO drain. See no evidence of leak. We will remove his drain today and I am fine with him going home if it is okay with gastroenterology.
--- NOTE | 2016-09-19 10:46 | Pain Management Progress Note ---
Assessment and Plan (1) Abdominal pain Status: Acute Assessment and plan: Pain better back on chronic Duragesic. 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 Has prn [place] while in hospital. Will f/u as needed for pain meds with Dr. Peguero. Current Visit: Yes Pain - Subjective Interval history: Pain better back on chronic Duragesic. 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 Has prn [place] while in hospital. Exam - Constitutional Vitals: Period Temp Pulse Resp BP Sys/Vaca Pulse Ox Last 24 Hr 97.7 F-99.3 F 63-88 16-19 108-128/70-82 99-100 Results - Labs CBC & BMP: 09/19/16 04:36 09/17/16 05:09 Specialty Discharge - Follow Up or Referrals Follow up with: Tony Cope MD [Physician] - 11/19/16 10:30 am
--- NOTE | 2016-09-19 11:06 | Discharge Summary ---
Hospital Course - Hospital Course Hospital Course: Patient is a 30-year-old male with extensive medical history including chronic pancreatitis, PUD, gastric outlet obstruction status post Art-en-Y gastrojejunostomy who presented with Anastacio patch pneumoperitoneum assisted with perforated gastric ulcer at the jejunal anastomosis for which he underwent Anastacio patch closure. Postoperatively he did experience blood loss anemia but his vital signs were stable H&H is potentially trended upward and did not require transfusion. He ultimately advance his diet and was tolerating oral intake without difficulty. He was tolerating activity, voiding, and passing his bowels without difficulty. Consultation from gastroenterology who is going to the patient was also appreciated, and the patient was recommended continued on a PPI twice daily as well as pancrelipase. The patient has moderate malnutrition and this is expected to help improve somewhat. He will continue to follow with GI on an outpatient basis. He has recovered approximately 15 pounds from his previous procedures. Pain management was also consulted as the patient was having difficulty with pain control. He was discharged on Duragesic patch with hydrocodone for breakthrough to follow with Dr. Peguero his primary care physician per Dr. Boston. Patient was ultimately discharged home in good condition. Wound care was reviewed with the patient prior to discharge as well as signs and symptoms of intra-abdominal bleeding to which he is instructed to respond promptly. Patient and his father who are present expressed understanding of the instructions. Diagnosis - Discharge Diagnosis (1) Perforated abdominal viscus Status: Acute (2) Acute posthemorrhagic anemia Status: Acute (3) Moderate malnutrition Status: Acute (4) Chronic alcoholic pancreatitis Status: Chronic Specialty Discharge - Follow Up or Referrals Follow up with: Tyron Noriega III., MD [Physician] - 09/26/16 2:45 pm (Pt needs H/H prior to appt lab work at [facility] on september 26 1:00) Neville Peguero MD [Physician] - (5-7 days re: hospital f/u and pain management) Tony Cope MD [Physician] - 11/19/16 10:30 am () Discharge Plan - Discharge Data Disposition: Disch To Home/Self Care Condition at Discharge: Stable Activity: no lifting (> 10 lb) Hygiene: may shower Contact your physician if you experience:: fever over 101, Difficulty voiding, Redness or swelling, Nausea/Vomiting (diarrhea or weight loss), Shortness of breath, Bleeding, pain uncontrolled by pain medications Wound / Dressing Care Instructions: Keep surgical incisions clean, dry and covered. - Discharge Medications New HYDROcodone/ACETAMIN 7.5-325 [[place] 7.5-325] 1 - 2 tablet PO Q6H PRN #30 tablet PRN Reason: Pain Moderate To Severe (4-10) Pancrelipase 4,200 Units [Pancreaze 4,200 Units] 3 capsule PO TID W/MEALS # 90 capsule Pantoprazole Tab [Protonix Tab] 40 mg PO BID #60 tablet fentaNYL 25 MCG/HR PATCH [Duragesic 25 Patch] 1 patch TRANSDERM Q3DAY patch fentaNYL 50 MCG/HR PATCH [Duragesic 50 Patch] 1 patch TRANSDERM Q3DAY #5 patch Ascorbic Acid [Vitamin C] 500 mg PO BID #60 tablet Multivitamin (Centrum) [Centrum Tab] 1 tablet PO DAILY tablet Continue Pantoprazole Tab [Protonix Tab] 40 mg PO BID@0700,1900 #60 tablet Ferrous Sulfate Tab [Feosol Original Tab] 325 mg PO BID #30 tablet Acetaminophen Tab [Tylenol Tab] 650 mg PO Q6H PRN #0 tablet PRN Reason: Fever > 100.4 Or Headache - Follow Up or Referral Follow Up: Tyron Noriega III., MD [Physician] - 09/26/16 2:45 pm (Pt needs H/H prior to appt lab work at [facility] on september 26 1:00) Tony Cope MD [Physician] - 11/19/16 10:30 am () Neville Peguero MD [Physician] - (5-7 days re: hospital f/u and pain management) - Forms/Instructions Instructions: Pancrelipase (By mouth), Soft Diet (DC), Diet for Ulcers and Gastritis (GEN) Exam - Constitutional Vitals: Period Temp Pulse Resp BP Sys/Vaca Pulse Ox Last 24 Hr 97.7 F-99.3 F 63-88 16-19 108-128/70-82 99-100 General appearance: no acute distress, cachectic - Head Head exam: Present: normal inspection, normocephalic - Respiratory Respiratory exam: Present: clear to auscultation bilaterally - Cardiovascular Cardiovascular exam: Present: regular rate and rhythm - GI/Abdominal GI/Abdominal exam: Present: soft, other (Surgical incision is clean, dry and intact with maria e intact. JOSE ROBERTO drain site is clean and dry. JOSE ROBERTO drain with minimal serous sanguinous drainage which was removed. Bowel sounds are present. Abdomen is appropriately tender without peritoneal signs) - Extremities Exam Extremities exam: Absent: calf tenderness, edema - Neurological Exam Neurological exam: Present: alert, oriented X3 - Psychiatric Psychiatric exam: Present: normal affect, normal mood - Skin Skin exam: Present: warm. Absent: cyanosis Discharge Results Procedures and tests throughout hospitalization: Pending Orders 09/17/16 Red Blood Cells Leuko Red Stat Type and Screen Stat 09/18/16 14:03 Gastrin, S Routine Labs on day of discharge: Labs from last 24 hours 09/19/16 09/18/16 04:36 14:04 Hgb 6.7 L 7.3 L Hct 22.0 L 25.1 L - Imaging and Cardiology Procedure: Abdominal x-ray: image reviewed by me, report reviewed by me, CT Abdomen and Pelvis: image reviewed by me, report reviewed by me DS: Provider Date of admission: 09/14/16 22:27 Primary care physician: . No PCP Attending physician on admission: Tyron Noriega III., Consults: 09/16/16 05:59 Consult to Physician [CONS] Routine Comment: Consulting Provider: Dashawn Boston Consulting Provider Notified: Yes When should Consulting Provider be notified: Now Consult to Specialist Group: Pain Management Person Notified: zari called Date Notified: 09/17/16 Time Notified: 08:23 Consult Notification Comment: 09/18/16 07:46 Consult to Physician [CONS] Routine Comment: Perforated ulcer: Protonix Consulting Provider: Tony Cope Consulting Provider Notified: Yes When should Consulting Provider be notified: Now Person Notified: juliana called Date Notified: 09/18/16 Time Notified: 09:09 Discharging clinician: Bonnie Mitchell PA-C
[2016-09-19 11:38] VITALS: BP 96/63
[2016-09-19] MEDS: HYDROmorphone PCA 30 MG/30 ML SYRINGE IV SCH (13:11)
--- NOTE | 2016-09-19 14:02 | Gastrointestinal Progress Note ---
Assessment and Plan (1) Perforated abdominal viscus Status: Acute Assessment and plan: Patient denies using NSAIDs since he was warned about these back in May 2016. He knows these can produce ulcerations in his small bowel and has been avoiding them. I suspect that he may have some ischemia producing the breakdown at the anastomotic site but this is nearly conjecture. He states that he has been taking his Protonix twice daily and needs to continue doing this on a routine basis. His gastrin level was completely normal back in May. We will check and see if this is increased resulting in a ulceration at this time. I think that I will stop his Celebrex as this certainly can add to potential perforations in the future. We should generally try and avoid NSAIDs in a patient like this. We will increase his Protonix back to twice a day as this will give him 20 hours worth of excellent acid suppression. I think we should try another round of acid suppressing medication as well as use of pancreatic enzymes both for pain suppression and for improvement in nutritional status. These enzymes provide a negative feedback to the pancreas suppressing his function wall helping to add to digestion of the patient's food which hopefully will restore his weight closer to 150 pounds which was his baseline prior to the chronic pancreatitis and pseudocyst issues. 09/19/16--Patient is doing well on the lipase. His only complaint is from the JOSE ROBERTO drain removed from his abdomen. He needs follow-up in my office in about 2-3 months for reassessment of his weight and his nutritional needs. We will recheck the patient's gastrin level at that time (drawn already). Current Visit: Yes (2) Chronic alcoholic pancreatitis Status: Chronic Assessment and plan: Patient is avoiding alcohol and is otherwise doing adequately. He cannot be eat fast but he can eat 3 full meals per day. Like Dr. Hari TY, I remain concerned that he is having suboptimal digestion of his food and adding a multivitamin to his regimen as well as lipase supplementation will likely result in improvement in his weight. Given his current weight he will need at least 12,000 of lipase but could require as much as 48,000 with each meal. See is that he is not having severe diarrhea to follow I think starting off at the 12,000 range is certainly going to be our best bet for the present. If he has not gained weight within the next 3-4 months we can certainly suspend this use of medication. I can follow him up in my office in another 3 months to see how he is doing. Will write a prescription for some Creon that he can use 1 pill with meals daily. He needs to be worn the pancreatic enzymes are incredibly expensive unfortunately. 09/19/16--Home today. Patient has prescription for Creon. He can follow-up in my office in about 2-3 months. Current Visit: Yes (3) Moderate malnutrition Status: Acute Assessment and plan: Again I believe the multivitamin, Protonix and lipase at 12,000 units of lipase per meal should suffice to help this patient's nutritional intake and maximize his weight gain over the next several months. He should follow-up with me in 3 months in the office. Note that this patient was on fentanyl only prior to admission and so would just suggest trying to minimize his narcotic intake now that he is healing from his viscus perforation. This patient is predisposed to narcotic overuse. We had trouble weaning him at all back in May. 09/19/16--Patient is doing fairly well. No new complaints. Ready to go home. Current Visit: Yes (4) Acute posthemorrhagic anemia Status: Acute Assessment and plan: Patient's hematocrit drops significantly would not hesitate to transfuse him 2 units of blood for his comfort and to provide a cushion in case he bleeds further in the future. Current Visit: No Gastroenterology - PN: Subj Interval history: No new complaints except for pain when the JOSE ROBERTO drain was removed from his abdomen. He is eating well and is abdominal pain is minimal. He is getting fentanyl patches for his chronic pancreatitis pain, he can be discharged from my standpoint, prescription written yesterday. Exam (Progress Note) - Constitutional Vitals: Period Temp Pulse Resp BP Sys/Vaca Pulse Ox Last 24 Hr 97.2 F-99.3 F 66-88 16-19 96-128/63-82 98-100 General appearance: no acute distress - Eye Eye exam: Present: EOMI - Respiratory Respiratory exam: Present: clear to auscultation bilaterally. Absent: rhonchi, stridor, wheezes - Cardiovascular Cardiovascular exam: Present: regular rate and rhythm - GI/Abdominal GI/Abdominal exam: Present: normal bowel sounds, tenderness (Mild to moderate epigastric tenderness), soft. Absent: distended, guarding - Extremities Exam Extremities exam: Absent: edema - Neurological Exam Neurological exam: Present: alert, oriented X3, CN II-XII intact. Absent: motor sensory deficit - Psychiatric Psychiatric exam: Present: normal affect, normal mood - Skin Skin exam: Present: warm Results - Labs CBC & BMP: 09/19/16 04:36 09/17/16 05:09 Specialty Discharge - Follow Up or Referrals Follow up with: Tyron Noriega III., MD [Physician] - 09/26/16 2:45 pm (Pt needs H/H prior to appt lab work at [facility] on september 26 1:00) Tony Cope MD [Physician] - 11/19/16 10:30 am
[2016-09-20] MEDS ORDERED: fentaNYL 25 MCG/HR PATCH TRANSDERM SCH (09:00)
== END 2016-09-19 15:45 | disposition home or self-care (01) | DRG 326 ==
LOC: N.ED 17:26 → N.EDINP 22:27 → N.3E 09-15 00:40
PROVIDERS: ADMIT Surgery; ATTEND Surgery

== ENCOUNTER 2017-02-26 19:28 | Inpatient (IN) ==
[2017-02-26] MEDS ORDERED: MIDAZOLAM 2 MG/2 ML VIAL IV STA ×2 (19:51→20:30)
[2017-02-26] MEDS ORDERED: MIDAZOLAM 2 MG/2 ML VIAL ONE ×2 (19:53→19:54)
[2017-02-26 19:59] LABS: Basophils % 0.2 % (0.0-0.8); Eosinophils % 0.1 % (0.00-10.9); Hematocrit 30.7 VOL% (42.0-52.0); Hemoglobin 9.3 GM/DL (14.0-18.0); Immature Granulocytes % 0.8 %; Immature Granulocytes Absolute 0.14 #; Lymphocytes # 1.1 10*3/uL (1.4-4.0); Lymphocytes % 6.2 % (21.2-54.2); Mean Corpuscular HGB Conc 30.3 GM/DL (32-36); Mean Corpuscular Hemoglobin 24 PG (27-34); Mean Corpuscular Volume 78.7 FL (87-102); Mean Platelet Volume 9.6 FL (9.6-12.0); Monocytes % 5.7 % (1.7-12.7); Neutrophils # 15.7 10*3/uL (1.4-7.4); Platelet Count 645 T/CUMM (130-400); Red Cell Distribution Width 20.7 % (9.3-17.3)
[2017-02-26] MEDS ORDERED: HALOPERIDOL 5 MG/ML AMP ONE ×2 (20:01→20:07)
[2017-02-26] MEDS ORDERED: MIDAZOLAM 10 MG/2 ML VIAL ONE ×3 (20:01→21:35)
[2017-02-26 20:23] LABS: Alanine Aminotransferase 24 U/L (16-61); Albumin 2.4 G/DL (3.4-5.0); Alkaline Phosphatase 297 U/L (45-117); Aspartate Amino Transferase 30 U/L (0-37); Bilirubin,Total < 0.39 MG/DL (0.2-1.0); Blood Urea Nitrogen 10 MG/DL (7-18); Calcium 8.1 MG/DL (8.5-10.1); Glucose 112 MG/DL (74-106); Potassium 4.8 MMOL/L (3.5-5.1); Sodium 136 MMOL/L (136-145); Total Protein 6.4 G/DL (6.4-8.3)
[2017-02-26 20:24] LABS: Acetaminophen < 2.0 UG/ML (10-30); Salicylate 3.7 MG/DL (2.8-20)
[2017-02-26] MEDS ORDERED: SODIUM CHLORIDE 0.9% 1,100 ML IV ONE (20:27)
[2017-02-26] MEDS ORDERED: MIDAZOLAM 10 MG/2 ML VIAL IV STA ×3 (20:28→20:57)
[2017-02-26] MEDS ORDERED: HALOPERIDOL 5 MG/ML AMP IV STA (20:29)
[2017-02-26 20:45] LABS: Apearance,Urine Slightly Hazy (Clear); Bacteria,Urine Occasional /HPF (Few); Bilirubin,Urine Negative (Negative); Blood, Urine Small mg/dL (Negative); Glucose,Urine (UA) Negative (Negative); Hyaline Casts,Urine 1 /LPF (0-3); Ketones,Urine Negative (Negative); Mucus,Urine Occasional /LPF (Occasional); Nitrite,Urine Negative (Negative); Protein,Urine Negative; RBC,Urine 1 /HPF (0-4); Squamous Epithelial Cell,Urine Occasional /HPF (0-10); Urine Color Yellow (Yellow); Urine Urobilinogen < 2.0 EU/DL (0.2-1.0); WBC,Urine 2 /HPF (0-6)
[2017-02-26 20:50] LABS: Barbiturates Screen,Urine Negative (Negative); Benzodiazepines Screen,Urine Positive (Negative); Cannabinoid Screen,Urine Negative (Negative); Opiate Screen,Urine Positive (Negative); Phencyclidine Screen,Urine Negative (Negative)
[2017-02-26] MEDS ORDERED: VANCOMYCIN INJ 500 MG in SODIUM CHLORIDE 0.9% 100 ML IV STA (20:55)
[2017-02-26] MEDS ORDERED: CEFEPIME 1,000 MG in SYRINGE 1 EACH IV STA (21:02)
[2017-02-26] MEDS: CEFEPIME 1,000 MG in SODIUM CHLORIDE 0.9% 100 ML IV STA ×2 (21:32→21:48)
[2017-02-26] MEDS ORDERED: metroNIDAZOLE INJ 500 MG in PREMIX 1 EACH IV STA (23:29)
[2017-02-26] MEDS ORDERED: PROPOFOL 1,000 MG/100 ML BOTTLE IV ONE (23:29)
[2017-02-26] MEDS: PROPOFOL 1,000 MG/100 ML BOTTLE IV SCH (23:36)
[2017-02-26] MEDS ORDERED: ETOMIDATE 20 MG/10 ML VIAL IV ONE (23:41)
[2017-02-26] MEDS ORDERED: SUCCINYLCHOLINE 200 MG/10 ML VIAL ONE (23:42)
[2017-02-27] MEDS ORDERED: metroNIDAZOLE 500 MG/100 ML PREMIX IV ONE (00:25)
[2017-02-27] MEDS ORDERED: ONDANSETRON 4 MG/2 ML VIAL IV PRN (00:28)
[2017-02-27] MEDS ORDERED: ALBUTEROL/IPRATROPIUM 3 ML NEB RESP TX PRN (00:28)
[2017-02-27] MEDS ORDERED: PANTOPRAZOLE 40 MG VIAL IV SCH (00:30)
[2017-02-27] MEDS ORDERED: LORazepam 2 MG/1 ML VIAL IV PRN (01:10)
[2017-02-27 01:34] LABS: Allen Test Positive; Pt O2 Delivery Device Ventilator
[2017-02-27 01:39] LABS: ABG Base Excess -2.7 MMOL/L (-2.5-2.5); ABG HCO3 21.5 MMOL/L (20-26); ABG PCO2 35.9 MM HG (35-48); ABG PH 7.396 (7.35-7.45); ABG PO2 155.2 MM HG (80-95); ABG TCO2 22.6 MMOL/L (23-27)
[2017-02-27] MEDS: fentaNYL INJ 1,250 MCG in SODIUM CHLORIDE 0.9% 225 ML IV SCH ×2 (01:55→16:27)
[2017-02-27] MEDS: SODIUM CHLORIDE 0.9% 1,000 ML IV SCH ×3 (02:19→16:45)
[2017-02-27] MEDS: PROPOFOL 1,000 MG/100 ML BOTTLE IV SCH ×3 (03:33→19:36)
[2017-02-27] MEDS ORDERED: SODIUM CHLORIDE 0.9% 500 ML IV ONE (05:37)
[2017-02-27 05:45] LABS: Basophils % 0.1 % (0.0-0.8); Hematocrit 23.3 VOL% (42.0-52.0); Immature Granulocytes Absolute 0.16 #; Lymphocytes % 6.3 % (21.2-54.2); Mean Corpuscular Hemoglobin 24 PG (27-34); Mean Corpuscular Volume 78.7 FL (87-102); Mean Platelet Volume 10.3 FL (9.6-12.0); Monocytes # 1.1 10*3/uL (0.11-0.8); Monocytes % 6.7 % (1.7-12.7); Neutrophils # 13.6 10*3/uL (1.4-7.4); Neutrophils % 85.9 % (38.7-73.9); Platelet Count 412 T/CUMM (130-400); Red Blood Count 2.96 MC/CUMM (3.8-5.5); Red Cell Distribution Width 20.3 % (9.3-17.3); White Blood Count 15.8 T/CUMM (4-12)
[2017-02-27] MEDS: CEFEPIME 2,000 MG in SYRINGE 1 EACH IV SCH ×3 (05:45→20:23)
[2017-02-27 06:15] LABS: Alanine Aminotransferase 20 U/L (16-61); Albumin 1.8 G/DL (3.4-5.0); Alkaline Phosphatase 239 U/L (45-117); Aspartate Amino Transferase 41 U/L (0-37); Bilirubin,Total < 0.39 MG/DL (0.2-1.0); Blood Urea Nitrogen 6 MG/DL (7-18); Calcium 7.1 MG/DL (8.5-10.1); Glucose 66 MG/DL (74-106); Magnesium 1.8 MG/DL (1.8-2.4); Osmolality,Calculated 285.6 MOS/KG (273-304); Potassium 3.5 MMOL/L (3.5-5.1); Sodium 146 MMOL/L (136-145); Total Protein 4.6 G/DL (6.4-8.3)
[2017-02-27 06:20] LABS: Lactic Acid 0.7 MMOL/L (0.4-2.0)
[2017-02-27 06:26] LABS: Ammonia 102 UMOL/L (11-32)
[2017-02-27] MEDS ORDERED: DEXTROSE 50% 25 GM/50 ML VIAL IV PRN (06:33)
[2017-02-27] MEDS ORDERED: DEXTROSE 50% 25 GM/50 ML VIAL IV ONE (06:35)
[2017-02-27 07:39] LABS: INR 1.5; PT Patient Result 15.8 SECS; Partial Thromboplastin Time 37.1 SECS (0-40)
[2017-02-27] MEDS ORDERED: ENOXAPARIN 40 MG/0.4 ML SYRINGE SUBCUT SCH (09:00)
[2017-02-27] MEDS: metroNIDAZOLE INJ 500 MG in PREMIX 1 EACH IV SCH ×2 (09:00→16:35)
[2017-02-27] MEDS: PANTOPRAZOLE 40 MG VIAL IV SCH ×2 (09:19→20:24)
[2017-02-28] MEDS: PROPOFOL 1,000 MG/100 ML BOTTLE IV SCH ×3 (00:33→08:00)
[2017-02-28] MEDS: metroNIDAZOLE INJ 500 MG in PREMIX 1 EACH IV SCH ×4 (00:36→23:44)
[2017-02-28] MEDS: SODIUM CHLORIDE 0.9% 1,000 ML IV SCH ×3 (02:22→17:08)
[2017-02-28 03:41] LABS: ABG Base Excess -4.6 MMOL/L (-2.5-2.5); ABG HCO3 20.6 MMOL/L (20-26); ABG Oxygen Saturation 99.8 % (95-100); ABG PCO2 36.6 MM HG (35-48); ABG PH 7.355 (7.35-7.45); ABG TCO2 19.4 MMOL/L (23-27); Allen Test Positive; Pt O2 Delivery Device Ventilator
[2017-02-28] MEDS: fentaNYL INJ 1,250 MCG in SODIUM CHLORIDE 0.9% 225 ML IV SCH (04:10)
[2017-02-28] MEDS: CEFEPIME 2,000 MG in SYRINGE 1 EACH IV SCH ×3 (04:16→20:14)
[2017-02-28 04:33] LABS: Basophils # 0.1 10*3/uL (0.0-0.2); Basophils % 0.4 % (0.0-0.8); Eosinophils # 0.1 10*3/uL (0.0-0.87); Eosinophils % 0.6 % (0.00-10.9); Hematocrit 24.9 VOL% (42.0-52.0); Hemoglobin 7.4 GM/DL (14.0-18.0); Immature Granulocytes % 0.5 %; Immature Granulocytes Absolute 0.07 #; Lymphocytes # 1.6 10*3/uL (1.4-4.0); Lymphocytes % 11.8 % (21.2-54.2); Mean Corpuscular HGB Conc 29.7 GM/DL (32-36); Mean Corpuscular Hemoglobin 24 PG (27-34); Mean Corpuscular Volume 81.4 FL (87-102); Mean Platelet Volume 10.7 FL (9.6-12.0); Monocytes # 0.9 10*3/uL (0.11-0.8); Monocytes % 6.4 % (1.7-12.7); Neutrophils # 10.9 10*3/uL (1.4-7.4); Neutrophils % 80.3 % (38.7-73.9); Platelet Count 390 T/CUMM (130-400); Red Blood Count 3.06 MC/CUMM (3.8-5.5); Red Cell Distribution Width 21.2 % (9.3-17.3); White Blood Count 13.5 T/CUMM (4-12)
[2017-02-28 05:09] LABS: Calcium 6.9 MG/DL (8.5-10.1); Magnesium 1.6 MG/DL (1.8-2.4); Osmolality,Calculated 286.4 MOS/KG (273-304); Potassium 3.6 MMOL/L (3.5-5.1)
[2017-02-28] MEDS ORDERED: LIDOCAINE 2% 20 ML VIAL RESP TX ONE (05:55)
[2017-02-28] MEDS ORDERED: LIDOCAINE 1% 20 ML VIAL MISC INJ ONE (05:55)
[2017-02-28 08:52] LABS: ABG Base Excess -4.8 MMOL/L (-2.5-2.5); ABG HCO3 20.3 MMOL/L (20-26); ABG PCO2 32.5 MM HG (35-48); ABG PH 7.386 (7.35-7.45); ABG PO2 61.4 MM HG (80-95); ABG TCO2 18.4 MMOL/L (23-27); Allen Test Positive; Pt O2 Delivery Device Room Air
[2017-02-28] MEDS: PANTOPRAZOLE 40 MG VIAL IV SCH ×2 (09:12→20:12)
[2017-02-28] MEDS: ACETAMINOPHEN 500 MG TABLET PO PRN ×2 (12:58→17:09)
[2017-03-01] MEDS: ACETAMINOPHEN 500 MG TABLET PO PRN ×2 (00:26→21:36)
[2017-03-01] MEDS: SODIUM CHLORIDE 0.9% 1,000 ML IV SCH ×2 (03:30→13:54)
[2017-03-01 04:03] LABS: ABG Base Excess -0.6 MMOL/L (-2.5-2.5); ABG HCO3 21.7 MMOL/L (20-26); ABG Oxygen Saturation 95.7 % (95-100); ABG PCO2 27.2 MM HG (35-48); ABG PO2 78.6 MM HG (80-95); ABG TCO2 22.5 MMOL/L (23-27); Allen Test Positive; Pt O2 Delivery Device Room Air
[2017-03-01 05:00] LABS: Basophils % 0.1 % (0.0-0.8); Hematocrit 25.5 VOL% (42.0-52.0); Hemoglobin 7.9 GM/DL (14.0-18.0); Immature Granulocytes % 1.2 %; Immature Granulocytes Absolute 0.32 #; Lymphocytes # 0.9 10*3/uL (1.4-4.0); Lymphocytes % 3.4 % (21.2-54.2); Mean Corpuscular Hemoglobin 24 PG (27-34); Mean Corpuscular Volume 77.7 FL (87-102); Mean Platelet Volume 10.2 FL (9.6-12.0); Monocytes # 0.9 10*3/uL (0.11-0.8); Monocytes % 3.4 % (1.7-12.7); Neutrophils # 24.7 10*3/uL (1.4-7.4); Neutrophils % 91.9 % (38.7-73.9); Platelet Count 540 T/CUMM (130-400); Red Blood Count 3.28 MC/CUMM (3.8-5.5); Red Cell Distribution Width 20.5 % (9.3-17.3); White Blood Count 26.8 T/CUMM (4-12)
[2017-03-01 05:26] LABS: Magnesium 1.5 MG/DL (1.8-2.4); Osmolality,Calculated 284.7 MOS/KG (273-304); Potassium 3.3 MMOL/L (3.5-5.1)
[2017-03-01] MEDS: CEFEPIME 2,000 MG in SYRINGE 1 EACH IV SCH ×3 (05:26→22:07)
[2017-03-01 05:53] LABS: Anisocytosis 1+; Hypochromasia 2+; Myelocytes 2 %; Nucleated Red Blood Cells 1 (0-5); Platelet Estimate Increased; Segmented Neutrophils 96 % (50-85); Total Cells Counted 100
[2017-03-01] MEDS: metroNIDAZOLE INJ 500 MG in PREMIX 1 EACH IV SCH ×2 (10:15→21:06)
[2017-03-01] MEDS: PANTOPRAZOLE 40 MG VIAL IV SCH ×2 (10:16→22:07)
[2017-03-01] MEDS ORDERED: POTASSIUM CHLORIDE 20 MEQ TABLET PO ONE (13:24)
[2017-03-01] MEDS ORDERED: MAGNESIUM SULF RIDER 4 GM in PREMIX 1 EACH IV ONE (13:24)
[2017-03-01] MEDS ORDERED: METHOCARBAMOL 500 MG TABLET PO PRN (14:06)
[2017-03-01 15:34] LABS: HIV Antigen/Antibody Result Nonreactive (Nonreactive)
[2017-03-01] MEDS: LACTULOSE 20 GM/30 ML UDCUP PO SCH (21:06)
[2017-03-02 03:09] LABS: ABG Base Excess 0.3 MMOL/L (-2.5-2.5); ABG HCO3 24.7 MMOL/L (20-26); ABG Oxygen Saturation 96.6 % (95-100); ABG PCO2 31.6 MM HG (35-48); ABG PH 7.478 (7.35-7.45); ABG PO2 95.6 MM HG (80-95); ABG TCO2 21.9 MMOL/L (23-27); Allen Test Positive; Pt O2 Delivery Device Room Air
[2017-03-02] MEDS: SODIUM CHLORIDE 0.9% 1,000 ML IV SCH ×4 (03:30→21:08)
[2017-03-02] MEDS: CEFEPIME 2,000 MG in SYRINGE 1 EACH IV SCH ×3 (05:45→21:49)
[2017-03-02] MEDS: metroNIDAZOLE INJ 500 MG in PREMIX 1 EACH IV SCH ×3 (06:30→21:06)
[2017-03-02 07:32] LABS: Basophils % 0.1 % (0.0-0.8); Hematocrit 26.7 VOL% (42.0-52.0); Hemoglobin 8.2 GM/DL (14.0-18.0); Immature Granulocytes % 0.8 %; Immature Granulocytes Absolute 0.17 #; Lymphocytes % 4.7 % (21.2-54.2); Mean Corpuscular HGB Conc 30.7 GM/DL (32-36); Mean Corpuscular Hemoglobin 24 PG (27-34); Mean Corpuscular Volume 77.8 FL (87-102); Mean Platelet Volume 9.9 FL (9.6-12.0); Monocytes # 1.1 10*3/uL (0.11-0.8); Monocytes % 5.3 % (1.7-12.7); Neutrophils # 18.5 10*3/uL (1.4-7.4); Neutrophils % 89.1 % (38.7-73.9); Platelet Count 596 T/CUMM (130-400); Red Blood Count 3.43 MC/CUMM (3.8-5.5); Red Cell Distribution Width 20.5 % (9.3-17.3); White Blood Count 20.7 T/CUMM (4-12)
[2017-03-02 08:02] LABS: Albumin 1.6 G/DL (3.4-5.0); Bilirubin,Total 0.4 MG/DL (0.2-1.0); Calcium 6.7 MG/DL (8.5-10.1); Magnesium 2.2 MG/DL (1.8-2.4); Osmolality,Calculated 288.4 MOS/KG (273-304); Phosphorous 1.7 MG/DL (2.5-4.9); Potassium 2.8 MMOL/L (3.5-5.1); Total Protein 4.8 G/DL (6.4-8.3)
[2017-03-02 08:04] LABS: Hypochromasia 1+; Lymphocytes 3 % (20-55); Total Cells Counted 100
[2017-03-02 08:05] LABS: Anisocytosis 1+; Hypersegmented Neutrophil SLIGHT; Microcytosis 1+; Platelet Estimate Increased
[2017-03-02 08:06] LABS: Polychromasia Slight
[2017-03-02 08:07] LABS: Segmented Neutrophils 93 % (50-85)
[2017-03-02] MEDS ORDERED: POTASSIUM CHLORIDE 20 MEQ TABLET PO ONE (09:41)
[2017-03-02] MEDS ORDERED: POTASSIUM CHLORIDE INJ 40 MEQ in SODIUM CHLORIDE 0.45% 1,000 ML IV SCH (10:00)
[2017-03-02] MEDS: MULTIVITAMIN (CENTRUM) TABLET PO SCH (10:51)
[2017-03-02] MEDS: THIAMINE 200 MG/2 ML VIAL IV SCH (10:51)
[2017-03-02] MEDS: PANTOPRAZOLE 40 MG VIAL IV SCH (10:51)
[2017-03-02] MEDS: LACTULOSE 20 GM/30 ML UDCUP PO SCH ×2 (10:52→21:06)
[2017-03-02] MEDS ORDERED: POTASSIUM PHOSPHATE 15 MMOL in SODIUM CHLORIDE 0.9% 100 ML IV ONE (12:44)
[2017-03-02] MEDS: PANTOPRAZOLE 40 MG TABLET PO SCH (21:06)
[2017-03-03 02:41] LABS: Apearance,Urine CLEAR (Clear); Bilirubin,Urine Negative (Negative); Blood, Urine Negative (Negative); Glucose,Urine (UA) Negative (Negative); Hyaline Casts,Urine 22 /LPF (0-3); Ketones,Urine 5 mg/dL (Negative); Mucus,Urine Occasional /LPF (Occasional); Nitrite,Urine Negative (Negative); Protein,Urine Negative; RBC,Urine <1 /HPF (0-4); Urine Color Straw (Yellow); Urine Urobilinogen < 2.0 EU/DL (0.2-1.0); WBC,Urine 1 /HPF (0-6)
[2017-03-03 03:56] LABS: Basophils % 0.2 % (0.0-0.8); Eosinophils % 0.1 % (0.00-10.9); Hematocrit 24.3 VOL% (42.0-52.0); Hemoglobin 7.5 GM/DL (14.0-18.0); Immature Granulocytes % 0.6 %; Immature Granulocytes Absolute 0.11 #; Lymphocytes # 1.2 10*3/uL (1.4-4.0); Lymphocytes % 6.7 % (21.2-54.2); Mean Corpuscular HGB Conc 30.9 GM/DL (32-36); Mean Corpuscular Hemoglobin 24 PG (27-34); Mean Corpuscular Volume 77.9 FL (87-102); Mean Platelet Volume 9.4 FL (9.6-12.0); Monocytes # 0.9 10*3/uL (0.11-0.8); Monocytes % 4.8 % (1.7-12.7); Neutrophils # 15.4 10*3/uL (1.4-7.4); Neutrophils % 87.6 % (38.7-73.9); Platelet Count 571 T/CUMM (130-400); Red Blood Count 3.12 MC/CUMM (3.8-5.5); Red Cell Distribution Width 20.1 % (9.3-17.3); White Blood Count 17.6 T/CUMM (4-12)
[2017-03-03 04:41] LABS: Calcium 7.3 MG/DL (8.5-10.1); Magnesium 1.9 MG/DL (1.8-2.4); Osmolality,Calculated 292.3 MOS/KG (273-304); Potassium 3.3 MMOL/L (3.5-5.1)
[2017-03-03] MEDS: metroNIDAZOLE INJ 500 MG in PREMIX 1 EACH IV SCH (05:15)
[2017-03-03] MEDS: CEFEPIME 2,000 MG in SYRINGE 1 EACH IV SCH (06:06)
[2017-03-03] MEDS: LACTULOSE 20 GM/30 ML UDCUP PO SCH (08:51)
[2017-03-03] MEDS: PANTOPRAZOLE 40 MG TABLET PO SCH (08:51)
[2017-03-03] MEDS: THIAMINE 200 MG/2 ML VIAL IV SCH (08:51)
[2017-03-03] MEDS: ACETAMINOPHEN 500 MG TABLET PO PRN (08:51)
[2017-03-03] MEDS: MULTIVITAMIN (CENTRUM) TABLET PO SCH (08:51)
[2017-03-03] MEDS: POTASSIUM CHLORIDE 20 MEQ TABLET PO PRN ×2 (08:51→11:10)
[2017-03-03 12:11] VITALS: BP 116/69
== END 2017-03-03 14:03 | disposition home or self-care (01) | DRG 917 ==
LOC: N.ED 19:28 → N.EDINP 23:31 → SUATTDRO 23:31 → N.ICU 23:53 → N.2E 02-28 14:30
PROVIDERS: ADMIT Internal Medicine; ATTEND Pediatrics

== ENCOUNTER 2018-04-02 05:09 | Inpatient (IN) ==
[2018-04-02] MEDS ORDERED: HYDROmorphone 2 MG/1 ML VIAL IV STA ×2 (05:37→06:09)
[2018-04-02] MEDS ORDERED: PANTOPRAZOLE 40 MG VIAL IV STA (05:37)
[2018-04-02] MEDS ORDERED: SODIUM CHLORIDE 0.9% 1,000 ML IV STA (05:37)
[2018-04-02] MEDS ORDERED: ONDANSETRON 4 MG/2 ML VIAL IV STA (05:37)
[2018-04-02 06:36] LABS: Basophils # 0.1 10*3/uL (0.0-0.2); Basophils % 0.6 % (0.0-0.8); Hematocrit 30.5 VOL% (42.0-52.0); Immature Granulocytes % 0.4 %; Immature Granulocytes Absolute 0.04 #; Lymphocytes # 0.6 10*3/uL (1.4-4.0); Lymphocytes % 6.1 % (21.2-54.2); Mean Corpuscular HGB Conc 25.6 GM/DL (32-36); Mean Corpuscular Hemoglobin 17 PG (27-34); Mean Corpuscular Volume 65.3 FL (87-102); Mean Platelet Volume 10.5 FL (9.6-12.0); Monocytes # 0.5 10*3/uL (0.11-0.8); Monocytes % 5.6 % (1.7-12.7); Neutrophils # 8.3 10*3/uL (1.4-7.4); Neutrophils % 87.3 % (38.7-73.9); Platelet Count 426 T/CUMM (130-400); Red Blood Count 4.67 MC/CUMM (3.8-5.5); Red Cell Distribution Width 21.8 % (9.3-17.3); White Blood Count 9.5 T/CUMM (4-12)
[2018-04-02 06:47] LABS: Hemoglobin 7.8 GM/DL (14.0-18.0)
[2018-04-02 06:58] LABS: Hypochromasia 1+; Platelet Estimate Adequate
[2018-04-02 06:59] LABS: Albumin 3.9 G/DL (3.4-5.0); Bilirubin,Total 0.5 MG/DL (0.2-1.0); Calcium 11.1 MG/DL (8.5-10.1); Lactic Acid 1.9 MMOL/L (0.4-2.0); Microcytosis Slight; Ovalocytes Slight; Potassium 3.6 MMOL/L (3.5-5.1); Total Protein 8.4 G/DL (6.4-8.3)
[2018-04-02 08:26] LABS: % Iron Saturation 2.4 % (18-50); Ferritin 3.1 ng/ml (26-388)
[2018-04-02 08:32] LABS: Folate > 24.0 NG/ML (5.4-24.0); Vitamin B12 645 PG/ML (211-911)
[2018-04-02] MEDS ORDERED: THIAMINE INJ 100 MG, FOLIC ACID INJ 1 MG, MAGNESIUM SULF INJ 2 GM, MULTIVITAMIN INJ 10 ... IV ONE (08:45)
[2018-04-02] MEDS ORDERED: ONDANSETRON 4 MG/2 ML VIAL IV PRN (08:45)
[2018-04-02] MEDS ORDERED: ACETAMINOPHEN 325 MG TABLET PO PRN (08:45)
[2018-04-02] MEDS ORDERED: PANTOPRAZOLE 40 MG TABLET PO SCH (09:00)
[2018-04-02] MEDS: DOCUSATE SODIUM 100 MG CAPSULE PO SCH ×2 (11:00→20:56)
[2018-04-02 12:41] LABS: Amorphous Crystals,Urine Few /HPF (Few); Apearance,Urine CLOUDY (Clear); Bilirubin,Urine Negative (Negative); Blood, Urine Negative (Negative); Glucose,Urine (UA) Negative (Negative); Ketones,Urine Negative (Negative); Nitrite,Urine Negative (Negative); Protein,Urine 100 MG/DL; Urine Color Yellow (Yellow); Urine Specific Gravity 1.021 (1.001-1.035); Urine Urobilinogen < 2.0 EU/DL (0.2-1.0); WBC,Urine 10 /HPF (0-6)
[2018-04-02 12:45] LABS: Barbiturates Screen,Urine Negative (Negative); Benzodiazepines Screen,Urine Positive (Negative); Cannabinoid Screen,Urine Negative (Negative); Opiate Screen,Urine Positive (Negative); Phencyclidine Screen,Urine Negative (Negative)
[2018-04-02] MEDS: HYDROmorphone 2 MG/1 ML VIAL IV PRN ×3 (15:21→23:38)
[2018-04-02 15:30] LABS: Hematocrit 26.3 VOL% (42.0-52.0); Hemoglobin 6.8 GM/DL (14.0-18.0)
[2018-04-02] MEDS ORDERED: SODIUM CHLORIDE 0.9% 1,000 ML IV PRN (16:01)
[2018-04-02] MEDS: PANTOPRAZOLE 40 MG VIAL IV SCH (20:52)
[2018-04-03 02:53] LABS: Basophils # 0.1 10*3/uL (0.0-0.2); Basophils % 0.4 % (0.0-0.8); Eosinophils % 0.3 % (0.00-10.9); Hemoglobin 8.2 GM/DL (14.0-18.0); Immature Granulocytes % 0.5 %; Immature Granulocytes Absolute 0.06 #; Lymphocytes # 1.6 10*3/uL (1.4-4.0); Lymphocytes % 14.5 % (21.2-54.2); Mean Corpuscular Hemoglobin 19 PG (27-34); Mean Platelet Volume 9.9 FL (9.6-12.0); Monocytes % 8.5 % (1.7-12.7); Neutrophils # 8.6 10*3/uL (1.4-7.4); Neutrophils % 75.8 % (38.7-73.9); Platelet Count 269 T/CUMM (130-400); Red Blood Count 4.31 MC/CUMM (3.8-5.5); Red Cell Distribution Width 21.9 % (9.3-17.3); White Blood Count 11.3 T/CUMM (4-12)
[2018-04-03 02:54] LABS: Hematocrit 29.3 VOL% (42.0-52.0)
[2018-04-03 02:59] LABS: Albumin 3.2 G/DL (3.4-5.0); Bilirubin,Total 0.8 MG/DL (0.2-1.0); Calcium 7.9 MG/DL (8.5-10.1); Osmolality,Calculated 271.7 MOS/KG (273-304); Potassium 3.6 MMOL/L (3.5-5.1); Total Protein 6.5 G/DL (6.4-8.3)
[2018-04-03] MEDS: HYDROmorphone 2 MG/1 ML VIAL IV PRN ×4 (04:29→23:40)
[2018-04-03] MEDS ORDERED: PANTOPRAZOLE 40 MG VIAL IV SCH (09:00)
[2018-04-03] MEDS ORDERED: LIDOCAINE 100 MG/5 ML SYRINGE ONE (09:00)
[2018-04-03] MEDS ORDERED: PROPOFOL 200 MG/20 ML VIAL IV ONE (09:00)
[2018-04-03] MEDS ORDERED: IRON DEXTRAN 25 MG in SYRINGE 1 EACH IV ONE (09:48)
[2018-04-03] MEDS: METOCLOPRAMIDE 10 MG/10 ML UDCUP PO SCH ×3 (13:04→21:04)
[2018-04-03] MEDS: PANTOPRAZOLE 40 MG VIAL IV SCH ×2 (13:04→21:02)
[2018-04-03] MEDS: DOCUSATE SODIUM 100 MG CAPSULE PO SCH ×2 (13:05→20:07)
[2018-04-03 14:52] LABS: Hematocrit 31.3 VOL% (42.0-52.0); Hemoglobin 8.4 GM/DL (14.0-18.0)
[2018-04-03] MEDS ORDERED: SODIUM CHLORIDE 0.9% IV ONE (16:00)
[2018-04-03] MEDS ORDERED: IRON DEXTRAN IV ONE (16:00)
[2018-04-04 03:15] LABS: Hematocrit 29.6 VOL% (42.0-52.0); Hemoglobin 8.2 GM/DL (14.0-18.0)
[2018-04-04] MEDS: HYDROmorphone 2 MG/1 ML VIAL IV PRN ×4 (06:13→21:37)
[2018-04-04] MEDS: METOCLOPRAMIDE 10 MG/10 ML UDCUP PO SCH ×4 (08:44→21:37)
[2018-04-04] MEDS: PANTOPRAZOLE 40 MG VIAL IV SCH ×2 (08:44→21:39)
[2018-04-04] MEDS: DOCUSATE SODIUM 100 MG CAPSULE PO SCH ×2 (08:44→22:03)
[2018-04-05] MEDS: HYDROmorphone 2 MG/1 ML VIAL IV PRN ×5 (03:26→23:15)
[2018-04-05] MEDS: PANTOPRAZOLE 40 MG VIAL IV SCH ×2 (08:06→21:15)
[2018-04-05] MEDS: METOCLOPRAMIDE 10 MG/10 ML UDCUP PO SCH ×4 (08:09→21:19)
[2018-04-05] MEDS: DOCUSATE SODIUM 100 MG CAPSULE PO SCH ×2 (09:00→21:19)
[2018-04-06] MEDS: HYDROmorphone 2 MG/1 ML VIAL IV PRN (05:02)
[2018-04-06 06:07] LABS: Calcium 8.1 MG/DL (8.5-10.1); Osmolality,Calculated 283.8 MOS/KG (273-304)
[2018-04-06 06:17] LABS: Basophils # 0.1 10*3/uL (0.0-0.2); Basophils % 0.8 % (0.0-0.8); Eosinophils # 0.1 10*3/uL (0.0-0.87); Hematocrit 32.3 VOL% (42.0-52.0); Hemoglobin 8.8 GM/DL (14.0-18.0); Immature Granulocytes % 0.5 %; Immature Granulocytes Absolute 0.03 #; Lymphocytes # 1.4 10*3/uL (1.4-4.0); Lymphocytes % 22.6 % (21.2-54.2); Mean Corpuscular HGB Conc 27.2 GM/DL (32-36); Mean Corpuscular Hemoglobin 19 PG (27-34); Mean Corpuscular Volume 69.8 FL (87-102); Mean Platelet Volume 10.3 FL (9.6-12.0); Monocytes # 0.7 10*3/uL (0.11-0.8); Monocytes % 10.4 % (1.7-12.7); NRBC # 0.02 10*3/uL; Neutrophils # 4.1 10*3/uL (1.4-7.4); Neutrophils % 64.7 % (38.7-73.9); Platelet Count 197 T/CUMM (130-400); Red Blood Count 4.63 MC/CUMM (3.8-5.5); Red Cell Distribution Width 23.6 % (9.3-17.3); White Blood Count 6.3 T/CUMM (4-12)
[2018-04-06 07:37] VITALS: BP 114/72
[2018-04-06] MEDS: PANTOPRAZOLE 40 MG VIAL IV SCH (08:26)
[2018-04-06] MEDS: METOCLOPRAMIDE 10 MG/10 ML UDCUP PO SCH (08:26)
[2018-04-06] MEDS: DOCUSATE SODIUM 100 MG CAPSULE PO SCH (08:27)
[2018-04-06] MEDS ORDERED: PANTOPRAZOLE 40 MG TABLET PO SCH (19:00)
== END 2018-04-06 10:45 | disposition home or self-care (01) | DRG 378 ==
LOC: N.ED 05:09 → N.EDINP 08:01 → N.2W 08:35 → N.5E 15:03
PROVIDERS: ADMIT Family Medicine; ATTEND Family Medicine

== ENCOUNTER 2019-08-18 00:48 | Inpatient (IN) ==
[2019-08-18] MEDS ORDERED: PANTOPRAZOLE 40 MG VIAL IV STA (01:04)
[2019-08-18] MEDS ORDERED: SODIUM CHLORIDE 0.9% 1,000 ML IV STA (01:04)
[2019-08-18] MEDS ORDERED: METOCLOPRAMIDE 10 MG/2 ML VIAL IV STA (01:04)
[2019-08-18] MEDS ORDERED: fentaNYL 100 MCG/2 ML VIAL IV STA (01:04)
[2019-08-18] MEDS ORDERED: ONDANSETRON 4 MG/2 ML VIAL IV STA (01:04)
[2019-08-18 02:04] LABS: Alanine Aminotransferase 28 U/L (16-61); Albumin 3.9 G/DL (3.4-5.0); Alkaline Phosphatase 113 U/L (45-117); Amylase 40 U/L (25-115); Aspartate Amino Transferase 25 U/L (0-37); Blood Urea Nitrogen 5 MG/DL (7-18); Calcium 9.5 MG/DL (8.5-10.1); Estimated Glom Filtration Rate 122 ML/MIN; Glucose 168 MG/DL (74-106); Osmolality,Calculated 266.4 MOS/KG (273-304); Total Protein 7.8 G/DL (6.4-8.3); Troponin I < 0.015 NG/ML (0.00-0.045)
[2019-08-18 02:16] LABS: Basophils # 0.1 10*3/uL (0.0-0.2); Basophils % 0.3 % (0.0-0.8); Eosinophils # 0.1 10*3/uL (0.0-0.87); Eosinophils % 0.2 % (0.00-10.9); Hematocrit 40.5 VOL% (42.0-52.0); Hemoglobin 12.1 GM/DL (14.0-18.0); Immature Granulocytes % 0.4 %; Immature Granulocytes Absolute 0.09 #; Lymphocytes % 5.2 % (21.2-54.2); Mean Corpuscular HGB Conc 29.9 GM/DL (32-36); Mean Corpuscular Volume 71.6 FL (87-102); Mean Platelet Volume 11.6 FL (9.6-12.0); Monocytes % 6.1 % (1.7-12.7); Neutrophils % 87.8 % (38.7-73.9); Platelet Count 221 T/CUMM (130-400); Red Blood Count 5.66 MC/CUMM (3.8-5.5); Red Cell Distribution Width 18.8 % (9.3-17.3)
[2019-08-18] MEDS ORDERED: PIPERACILLIN/TAZOBACTAM 3,375 MG in SODIUM CHLORIDE 0.9% 100 ML IV STA (02:16)
[2019-08-18 02:33] LABS: Lymphocytes 1 % (20-55); Segmented Neutrophils 91 % (50-85); Total Cells Counted 100
[2019-08-18 02:34] LABS: Anisocytosis 1+; Hypochromasia 2+; Microcytosis 2+; Platelet Estimate Normal
[2019-08-18] MEDS ORDERED: HYDROmorphone 2 MG/1 ML VIAL ONE ×2 (02:35→10:13)
[2019-08-18 02:37] LABS: Stomatocytes Few
[2019-08-18] MEDS ORDERED: ONDANSETRON 4 MG/2 ML VIAL IV PRN ×3 (02:59→10:11)
[2019-08-18] MEDS ORDERED: HYDROmorphone 2 MG/1 ML VIAL IV PRN (02:59)
[2019-08-18 03:04] LABS: Barbiturates Screen,Urine Negative (Negative); Benzodiazepines Screen,Urine Positive (Negative); Cannabinoid Screen,Urine Negative (Negative); Opiate Screen,Urine Positive (Negative); Phencyclidine Screen,Urine Negative (Negative)
[2019-08-18 03:07] LABS: Amorphous Crystals,Urine Occasional /HPF (Few); Apearance,Urine CLEAR (Clear); Bilirubin,Urine Negative (Negative); Blood, Urine Negative (Negative); Glucose,Urine (UA) Negative (Negative); Hyaline Casts,Urine 4 /LPF (0-3); Ketones,Urine Negative (Negative); Mucus,Urine Occasional /LPF (Occasional); Nitrite,Urine Negative (Negative); Protein,Urine Negative; RBC,Urine <1 /HPF (0-4); Urine Color Yellow (Yellow); Urine Specific Gravity 1.014 (1.001-1.035); Urine Urobilinogen < 2.0 EU/DL (0.2-1.0); WBC,Urine <1 /HPF (0-6)
[2019-08-18] MEDS: SODIUM CHLORIDE 0.9% 1,000 ML IV SCH ×3 (03:54→17:59)
[2019-08-18] MEDS ORDERED: KETOROLAC 30 MG/1 ML VIAL IV ONE (04:30)
[2019-08-18 06:39] LABS: Albumin 3.7 G/DL (3.4-5.0); Bilirubin,Total 0.6 MG/DL (0.2-1.0); Calcium 9.4 MG/DL (8.5-10.1); Osmolality,Calculated 268.1 MOS/KG (273-304); Total Protein 7.5 G/DL (6.4-8.3)
[2019-08-18 06:42] LABS: Basophils % 0.2 % (0.0-0.8); Hematocrit 39.3 VOL% (42.0-52.0); Hemoglobin 11.5 GM/DL (14.0-18.0); Immature Granulocytes % 0.6 %; Immature Granulocytes Absolute 0.12 #; Lymphocytes # 0.8 10*3/uL (1.4-4.0); Lymphocytes % 4.1 % (21.2-54.2); Mean Corpuscular HGB Conc 29.3 GM/DL (32-36); Mean Corpuscular Volume 72.2 FL (87-102); Mean Platelet Volume 11.4 FL (9.6-12.0); Monocytes % 6.3 % (1.7-12.7); Neutrophils % 88.8 % (38.7-73.9); Platelet Count 230 T/CUMM (130-400); Red Blood Count 5.44 MC/CUMM (3.8-5.5); Red Cell Distribution Width 18.6 % (9.3-17.3); White Blood Count 19.5 T/CUMM (4-12)
[2019-08-18 06:51] LABS: Band Neutrophils 1 % (0-10); Lymphocytes 3 % (20-55); Platelet Estimate Adequate; Segmented Neutrophils 91 % (50-85); Total Cells Counted 100
[2019-08-18 06:52] LABS: Hypochromasia 1+; Microcytosis Slight
[2019-08-18] MEDS ORDERED: LACTATED RINGERS 1,000 ML IV SCH (07:00)
[2019-08-18] MEDS ORDERED: ALBUTEROL 2.5 MG/3 ML NEB RESP TX ONE (07:47)
[2019-08-18] MEDS: PANTOPRAZOLE 40 MG VIAL IV SCH (08:05)
[2019-08-18] MEDS ORDERED: ALBUTEROL/IPRATROPIUM 3 ML NEB RESP TX PRN (09:08)
[2019-08-18] MEDS ORDERED: MENINGOCOCCAL VACCINE 0.5 ML VIAL SUBCUT ONE (09:13)
[2019-08-18] MEDS ORDERED: PNEUMOCOCCAL VACCINE (13 VALENT) 0.5 ML SYRINGE IM ONE (09:13)
[2019-08-18] MEDS ORDERED: HAEMOPHILUS B CONJ VACCINE 0.5 ML/10 MCG VIAL IM ONE (09:13)
[2019-08-18] MEDS ORDERED: BUPIVACAINE MPF 0.25% 30 ML VIAL ONE (09:18)
[2019-08-18 09:20] LABS: Apearance,Urine CLEAR (Clear); Bilirubin,Urine Negative (Negative); Blood, Urine Negative (Negative); Glucose,Urine (UA) Negative (Negative); Ketones,Urine Negative (Negative); Mucus,Urine Occasional /LPF (Occasional); Nitrite,Urine Negative (Negative); Protein,Urine Negative; RBC,Urine 1 /HPF (0-4); Urine Color Yellow (Yellow); Urine Specific Gravity 1.012 (1.001-1.035); Urine Urobilinogen < 2.0 EU/DL (0.2-1.0); WBC,Urine <1 /HPF (0-6)
[2019-08-18] MEDS ORDERED: LABETALOL 20 MG/4 ML SYRINGE IV ONE (10:12)
[2019-08-18] MEDS ORDERED: ONDANSETRON 4 MG/2 ML VIAL ONE ×2 (10:14→10:22)
[2019-08-18] MEDS ORDERED: LABETALOL 100 MG/20 ML VIAL IV ONE (10:14)
[2019-08-18] MEDS: HYDROmorphone 2 MG/1 ML VIAL IV PRN ×6 (10:15→21:48)
[2019-08-18] MEDS ORDERED: LIDOCAINE 2% 5 ML VIAL ONE (10:21)
[2019-08-18] MEDS ORDERED: propofoL 200 MG/20 ML VIAL IV ONE (10:21)
[2019-08-18] MEDS ORDERED: fentaNYL 100 MCG/2 ML VIAL ONE (10:22)
[2019-08-18] MEDS ORDERED: ESMOLOL 100 MG/10 ML VIAL IV ONE (10:22)
[2019-08-18] MEDS ORDERED: GLYCOPYRROLATE 0.4 MG/2 ML VIAL ONE (10:22)
[2019-08-18] MEDS ORDERED: MIDAZOLAM 2 MG/2 ML VIAL ONE (10:22)
[2019-08-18] MEDS ORDERED: SEVOFLURANE 1 UNIT/15 MINUTE INH ONE (10:22)
[2019-08-18] MEDS ORDERED: NEOSTIGMINE 10 MG/10 ML VIAL ONE (10:23)
[2019-08-18] MEDS ORDERED: LACTATED RINGERS 1,000 ML IV ONE (10:23)
[2019-08-18] MEDS ORDERED: SUCCINYLCHOLINE 200 MG/10 ML VIAL ONE (10:23)
[2019-08-18] MEDS ORDERED: ROCURONIUM 100 MG/10 ML VIAL IV ONE (10:23)
[2019-08-18] MEDS ORDERED: PIPERACILLIN/TAZOBACTAM 3,375 MG in SODIUM CHLORIDE 0.9% 100 ML IV SCH (11:00)
[2019-08-18] MEDS: KETOROLAC 15 MG/1 ML VIAL IV SCH ×3 (11:05→22:58)
[2019-08-18] MEDS: PIPERACILLIN/TAZOBACTAM 3,375 MG in SODIUM CHLORIDE 0.9% 100 ML IV SCH ×2 (11:06→16:29)
[2019-08-18 11:29] LABS: Hematocrit 30.7 VOL% (42.0-52.0)
[2019-08-18] MEDS: LORazepam 2 MG/1 ML VIAL IV PRN ×4 (11:53→22:58)
[2019-08-18 14:56] LABS: Hematocrit 30.3 VOL% (42.0-52.0); Hemoglobin 8.9 GM/DL (14.0-18.0)
[2019-08-19] MEDS: HYDROmorphone 2 MG/1 ML VIAL IV PRN ×7 (01:24→14:05)
[2019-08-19] MEDS: LORazepam 2 MG/1 ML VIAL IV PRN ×4 (01:58→13:13)
[2019-08-19] MEDS: SODIUM CHLORIDE 0.9% 1,000 ML IV SCH ×3 (02:00→22:12)
[2019-08-19] MEDS: PIPERACILLIN/TAZOBACTAM 3,375 MG in SODIUM CHLORIDE 0.9% 100 ML IV SCH ×3 (02:02→17:15)
[2019-08-19] MEDS: KETOROLAC 15 MG/1 ML VIAL IV SCH ×4 (04:01→22:44)
[2019-08-19 05:03] LABS: Basophils % 0.2 % (0.0-0.8); Hematocrit 28.8 VOL% (42.0-52.0); Hemoglobin 8.4 GM/DL (14.0-18.0); Immature Granulocytes % 0.6 %; Immature Granulocytes Absolute 0.08 #; Lymphocytes # 1.1 10*3/uL (1.4-4.0); Lymphocytes % 8.1 % (21.2-54.2); Mean Corpuscular HGB Conc 29.2 GM/DL (32-36); Mean Corpuscular Volume 72.5 FL (87-102); Mean Platelet Volume 11.4 FL (9.6-12.0); Monocytes % 7.9 % (1.7-12.7); Neutrophils % 83.2 % (38.7-73.9); Platelet Count 167 T/CUMM (130-400); Red Blood Count 3.97 MC/CUMM (3.8-5.5); Red Cell Distribution Width 18.2 % (9.3-17.3); White Blood Count 13.3 T/CUMM (4-12)
[2019-08-19 05:12] LABS: INR 1.3; PT Patient Result 13.7 SECS (9.8-11.9)
[2019-08-19 05:29] LABS: Albumin 2.5 G/DL (3.4-5.0); Bilirubin,Total 0.7 MG/DL (0.2-1.0); Calcium 8.2 MG/DL (8.5-10.1); Osmolality,Calculated 266.2 MOS/KG (273-304); Total Protein 5.6 G/DL (6.4-8.3)
[2019-08-19] MEDS: PANTOPRAZOLE 40 MG VIAL IV SCH ×2 (09:12→21:20)
[2019-08-19] MEDS ORDERED: LIDOCAINE 1%/EPI INJ 20 ML VIAL ONE (09:29)
[2019-08-19] MEDS ORDERED: BUPIVACAINE MPF 0.25% 30 ML VIAL ONE (09:29)
[2019-08-19] MEDS ORDERED: HYDROmorphone 2 MG/1 ML VIAL ONE (11:37)
[2019-08-19] MEDS ORDERED: ONDANSETRON 4 MG/2 ML VIAL ONE (11:38)
[2019-08-19] MEDS ORDERED: SEVOFLURANE 1 UNIT/15 MINUTE INH ONE (11:41)
[2019-08-19] MEDS ORDERED: propofoL 200 MG/20 ML VIAL IV ONE (11:41)
[2019-08-19] MEDS ORDERED: MIDAZOLAM 2 MG/2 ML VIAL ONE (11:41)
[2019-08-19] MEDS ORDERED: LIDOCAINE 2% 5 ML VIAL ONE (11:41)
[2019-08-19] MEDS ORDERED: PHENYLEPHRINE 1 MG/10 ML SYRINGE IV ONE (11:42)
[2019-08-19] MEDS ORDERED: ONDANSETRON 4 MG/2 ML VIAL IV PRN (11:42)
[2019-08-19] MEDS ORDERED: SODIUM CHLORIDE 0.9% 1,000 ML IV ONE (11:42)
[2019-08-19] MEDS ORDERED: ROCURONIUM 100 MG/10 ML VIAL IV ONE (11:42)
[2019-08-19] MEDS ORDERED: GLYCOPYRROLATE 0.4 MG/2 ML VIAL ONE (11:42)
[2019-08-19] MEDS ORDERED: SUFentanil 50 MCG/ML AMP ONE (11:42)
[2019-08-19] MEDS ORDERED: SUCCINYLCHOLINE 200 MG/10 ML VIAL ONE (11:42)
[2019-08-19] MEDS ORDERED: NEOSTIGMINE 10 MG/10 ML VIAL ONE (11:42)
[2019-08-19] MEDS ORDERED: LACTATED RINGERS 1,000 ML IV ONE (11:42)
[2019-08-19] MEDS ORDERED: KETOROLAC 15 MG/1 ML VIAL IV ONE (15:02)
[2019-08-19] MEDS ORDERED: NALOXONE 0.4 MG/ML VIAL IV PRN (15:02)
[2019-08-19] MEDS ORDERED: LORazepam 2 MG/1 ML VIAL IV ONE (15:03)
[2019-08-19 15:17] LABS: Hematocrit 25.8 VOL% (42.0-52.0); Hemoglobin 7.6 GM/DL (14.0-18.0)
[2019-08-19] MEDS: HYDROmorphone PCA 30 MG/30 ML SYRINGE IV SCH (16:18)
[2019-08-20] MEDS: PIPERACILLIN/TAZOBACTAM 3,375 MG in SODIUM CHLORIDE 0.9% 100 ML IV SCH ×3 (02:08→18:28)
[2019-08-20 06:30] LABS: Basophils # 0.1 10*3/uL (0.0-0.2); Basophils % 0.6 % (0.0-0.8); Eosinophils # 0.3 10*3/uL (0.0-0.87); Eosinophils % 3.8 % (0.00-10.9); Hematocrit 21.7 VOL% (42.0-52.0); Immature Granulocytes % 0.5 %; Immature Granulocytes Absolute 0.04 #; Lymphocytes % 11.6 % (21.2-54.2); Mean Corpuscular Volume 74.8 FL (87-102); Mean Platelet Volume 10.7 FL (9.6-12.0); Monocytes % 7.8 % (1.7-12.7); Neutrophils % 75.7 % (38.7-73.9); Platelet Count 161 T/CUMM (130-400); Red Cell Distribution Width 18.3 % (9.3-17.3); White Blood Count 8.3 T/CUMM (4-12)
[2019-08-20 06:41] LABS: Hemoglobin 6.3 GM/DL (14.0-18.0)
[2019-08-20] MEDS: SODIUM CHLORIDE 0.9% 1,000 ML IV SCH ×3 (06:50→21:43)
[2019-08-20] MEDS: KETOROLAC 15 MG/1 ML VIAL IV SCH (06:51)
[2019-08-20 06:56] LABS: Calcium 7.3 MG/DL (8.5-10.1); Osmolality,Calculated 268.8 MOS/KG (273-304)
[2019-08-20] MEDS ORDERED: SODIUM CHLORIDE 0.9% 1,000 ML IV PRN ×2 (07:21→08:00)
[2019-08-20] MEDS: PANTOPRAZOLE 40 MG VIAL IV SCH ×2 (09:52→21:43)
[2019-08-20] MEDS: HYDROmorphone PCA 30 MG/30 ML SYRINGE IV SCH (18:31)
[2019-08-20] MEDS: LORazepam 2 MG/1 ML VIAL IV PRN ×2 (18:32→23:16)
[2019-08-21] MEDS: PIPERACILLIN/TAZOBACTAM 3,375 MG in SODIUM CHLORIDE 0.9% 100 ML IV SCH ×3 (02:48→18:25)
[2019-08-21] MEDS: SODIUM CHLORIDE 0.9% 1,000 ML IV SCH ×2 (05:44→14:10)
[2019-08-21 06:21] LABS: Basophils # 0.1 10*3/uL (0.0-0.2); Basophils % 0.6 % (0.0-0.8); Eosinophils # 0.4 10*3/uL (0.0-0.87); Eosinophils % 4.8 % (0.00-10.9); Hematocrit 23.8 VOL% (42.0-52.0); Hemoglobin 7.3 GM/DL (14.0-18.0); Immature Granulocytes % 0.8 %; Immature Granulocytes Absolute 0.06 #; Lymphocytes # 0.9 10*3/uL (1.4-4.0); Lymphocytes % 11.1 % (21.2-54.2); Mean Corpuscular HGB Conc 30.7 GM/DL (32-36); Mean Corpuscular Volume 75.8 FL (87-102); Mean Platelet Volume 10.5 FL (9.6-12.0); Monocytes % 8.6 % (1.7-12.7); Neutrophils % 74.1 % (38.7-73.9); Platelet Count 163 T/CUMM (130-400); Red Blood Count 3.14 MC/CUMM (3.8-5.5); Red Cell Distribution Width 18.4 % (9.3-17.3); White Blood Count 7.9 T/CUMM (4-12)
[2019-08-21 06:37] LABS: Calcium 7.4 MG/DL (8.5-10.1); Osmolality,Calculated 262.2 MOS/KG (273-304)
[2019-08-21] MEDS: PANTOPRAZOLE 40 MG VIAL IV SCH ×2 (09:10→21:29)
[2019-08-21] MEDS ORDERED: SODIUM CHLORIDE 0.9% 1,000 ML IV PRN (10:25)
[2019-08-21] MEDS: POTASSIUM CHLORIDE 20 MEQ TABLET PO PRN ×2 (14:09→16:11)
[2019-08-21] MEDS: LORazepam 2 MG/1 ML VIAL IV PRN (16:25)
[2019-08-21] MEDS: HYDROmorphone PCA 30 MG/30 ML SYRINGE IV SCH (17:04)
[2019-08-21] MEDS ORDERED: MAGNESIUM SULF RIDER 2 GM in PREMIX 1 EACH IV PRN (17:56)
[2019-08-21] MEDS ORDERED: MAGNESIUM SULF RIDER 4 GM in PREMIX 1 EACH IV PRN (17:56)
[2019-08-21 19:57] LABS: Hematocrit 30.4 VOL% (42.0-52.0); Hemoglobin 9.7 GM/DL (14.0-18.0)
[2019-08-22] MEDS: PIPERACILLIN/TAZOBACTAM 3,375 MG in SODIUM CHLORIDE 0.9% 100 ML IV SCH ×2 (02:24→08:42)
[2019-08-22 06:17] LABS: Basophils % 0.5 % (0.0-0.8); Eosinophils # 0.4 10*3/uL (0.0-0.87); Hematocrit 31.1 VOL% (42.0-52.0); Hemoglobin 10.1 GM/DL (14.0-18.0); Immature Granulocytes % 0.7 %; Immature Granulocytes Absolute 0.04 #; Lymphocytes % 17.4 % (21.2-54.2); Mean Corpuscular HGB Conc 32.5 GM/DL (32-36); Mean Corpuscular Volume 75.3 FL (87-102); Mean Platelet Volume 9.6 FL (9.6-12.0); Monocytes % 11.3 % (1.7-12.7); Neutrophils % 62.1 % (38.7-73.9); Platelet Count 173 T/CUMM (130-400); Red Blood Count 4.13 MC/CUMM (3.8-5.5); Red Cell Distribution Width 18.4 % (9.3-17.3); White Blood Count 5.5 T/CUMM (4-12)
[2019-08-22] MEDS: SODIUM CHLORIDE 0.9% 1,000 ML IV SCH ×2 (08:39→09:24)
[2019-08-22] MEDS: PANTOPRAZOLE 40 MG VIAL IV SCH ×2 (08:40→21:48)
[2019-08-22] MEDS: POTASSIUM CHLORIDE 20 MEQ TABLET PO PRN ×2 (08:43→15:06)
[2019-08-22] MEDS: CLARITHROMYCIN 500 MG TABLET PO SCH ×2 (10:27→21:43)
[2019-08-22] MEDS: AMOXICILLIN 500 MG CAPSULE PO SCH ×2 (10:27→21:43)
[2019-08-22] MEDS: HYDROmorphone PCA 30 MG/30 ML SYRINGE IV SCH (14:54)
[2019-08-22] MEDS: LORazepam 2 MG/1 ML VIAL IV PRN (21:48)
[2019-08-23] MEDS ORDERED: ACETAMINOPHEN 325 MG TABLET PO ONE (01:25)
[2019-08-23] MEDS: LORazepam 2 MG/1 ML VIAL IV PRN ×2 (02:25→12:05)
[2019-08-23 06:35] LABS: Basophils % 0.3 % (0.0-0.8); Eosinophils % 0.1 % (0.00-10.9); Hemoglobin 11.2 GM/DL (14.0-18.0); Immature Granulocytes % 0.8 %; Immature Granulocytes Absolute 0.08 #; Lymphocytes # 0.2 10*3/uL (1.4-4.0); Lymphocytes % 2.4 % (21.2-54.2); Mean Corpuscular HGB Conc 31.1 GM/DL (32-36); Mean Corpuscular Volume 77.6 FL (87-102); Mean Platelet Volume 10.4 FL (9.6-12.0); Monocytes % 4.1 % (1.7-12.7); Neutrophils % 92.3 % (38.7-73.9); Platelet Count 190 T/CUMM (130-400); Red Blood Count 4.64 MC/CUMM (3.8-5.5); Red Cell Distribution Width 19.9 % (9.3-17.3); White Blood Count 10.1 T/CUMM (4-12)
[2019-08-23 06:55] LABS: Calcium 8.5 MG/DL (8.5-10.1); Osmolality,Calculated 255.9 MOS/KG (273-304)
[2019-08-23 07:50] LABS: Band Neutrophils 2 % (0-10); Hypochromasia 1+; Lymphocytes 2 % (20-55); Microcytosis Slight; Ovalocytes Slight; Platelet Estimate Adequate; Segmented Neutrophils 94 % (50-85); Total Cells Counted 100
[2019-08-23] MEDS: AMOXICILLIN 500 MG CAPSULE PO SCH ×2 (08:49→20:44)
[2019-08-23] MEDS: CLARITHROMYCIN 500 MG TABLET PO SCH ×2 (08:49→20:44)
[2019-08-23] MEDS: PANTOPRAZOLE 40 MG VIAL IV SCH ×2 (08:50→20:45)
[2019-08-23] MEDS ORDERED: IRON DEXTRAN IV ONE (09:30)
[2019-08-23] MEDS ORDERED: SODIUM CHLORIDE 0.9% IV ONE (09:30)
[2019-08-23] MEDS ORDERED: IRON DEXTRAN 25 MG in SYRINGE 1 EACH IV ONE (09:30)
[2019-08-23 11:37] LABS: Apearance,Urine CLEAR (Clear); Bilirubin,Urine Negative (Negative); Blood, Urine Moderate mg/dL (Negative); Glucose,Urine (UA) Negative (Negative); Ketones,Urine Negative (Negative); Mucus,Urine Occasional /LPF (Occasional); Nitrite,Urine Negative (Negative); Protein,Urine Negative; RBC,Urine 16 /HPF (0-4); Urine Color Yellow (Yellow); Urine Specific Gravity 1.009 (1.001-1.035); Urine Urobilinogen < 2.0 EU/DL (0.2-1.0); WBC,Urine 1 /HPF (0-6)
[2019-08-23] MEDS ORDERED: METOPROLOL TARTRATE 5 MG/5 ML VIAL IV ONE (12:22)
[2019-08-23] MEDS ORDERED: ADENOSINE 6 MG/2 ML VIAL ONE (12:50)
[2019-08-23 14:04] LABS: Barbiturates Screen,Urine Negative (Negative); Benzodiazepines Screen,Urine Negative (Negative); Cannabinoid Screen,Urine Negative (Negative); Opiate Screen,Urine Positive (Negative); Phencyclidine Screen,Urine Negative (Negative)
[2019-08-23] MEDS ORDERED: MAGNESIUM SULF RIDER 2 GM in PREMIX 1 EACH IV ONE (14:07)
[2019-08-23] MEDS ORDERED: LACTATED RINGERS 1,000 ML IV ONE (14:56)
[2019-08-23] MEDS: PIPERACILLIN/TAZOBACTAM 3,375 MG in SODIUM CHLORIDE 0.9% 100 ML IV SCH ×2 (15:20→22:45)
[2019-08-23] MEDS: ENOXAPARIN 40 MG/0.4 ML SYRINGE SUBCUT SCH (15:20)
[2019-08-23 16:59] LABS: Glucose,Peritoneal Fluid 94 MG/DL; LDH,Peritoneal Fluid 736 U/L
[2019-08-23] MEDS: SODIUM CHLORIDE 0.9% 1,000 ML IV SCH (17:25)
[2019-08-23] MEDS: VANCOMYCIN INJ 1,000 MG in SODIUM CHLORIDE 0.9% 250 ML IV SCH (17:52)
[2019-08-24] MEDS: SODIUM CHLORIDE 0.9% 1,000 ML IV SCH ×3 (03:23→16:38)
[2019-08-24] MEDS: VANCOMYCIN INJ 1,000 MG in SODIUM CHLORIDE 0.9% 250 ML IV SCH ×2 (06:10→18:48)
[2019-08-24 06:14] LABS: Basophils % 0.3 % (0.0-0.8); Hematocrit 30.3 VOL% (42.0-52.0); Hemoglobin 9.5 GM/DL (14.0-18.0); Immature Granulocytes % 0.8 %; Immature Granulocytes Absolute 0.05 #; Lymphocytes # 0.6 10*3/uL (1.4-4.0); Lymphocytes % 8.6 % (21.2-54.2); Mean Corpuscular HGB Conc 31.4 GM/DL (32-36); Mean Corpuscular Volume 77.3 FL (87-102); Mean Platelet Volume 10.5 FL (9.6-12.0); Monocytes % 10.6 % (1.7-12.7); Neutrophils % 79.7 % (38.7-73.9); Red Blood Count 3.92 MC/CUMM (3.8-5.5); Red Cell Distribution Width 20.6 % (9.3-17.3); White Blood Count 6.4 T/CUMM (4-12)
[2019-08-24 06:16] LABS: Platelet Count 81 T/CUMM (130-400)
[2019-08-24] MEDS: PIPERACILLIN/TAZOBACTAM 3,375 MG in SODIUM CHLORIDE 0.9% 100 ML IV SCH ×3 (06:31→22:44)
[2019-08-24 06:34] LABS: Hypochromasia 1+; Microcytosis 1+; Platelet Estimate Decreased; Polychromasia Slight
[2019-08-24 06:40] LABS: Calcium 7.8 MG/DL (8.5-10.1); Osmolality,Calculated 272.7 MOS/KG (273-304)
[2019-08-24] MEDS: ENOXAPARIN 40 MG/0.4 ML SYRINGE SUBCUT SCH (08:28)
[2019-08-24] MEDS: PANTOPRAZOLE 40 MG VIAL IV SCH ×2 (08:28→20:29)
[2019-08-24] MEDS: HYDROmorphone 2 MG/1 ML VIAL IV PRN ×8 (08:38→21:59)
[2019-08-24] MEDS: CLARITHROMYCIN 500 MG TABLET PO SCH ×2 (09:00→20:29)
[2019-08-24] MEDS: AMOXICILLIN 500 MG CAPSULE PO SCH ×2 (09:00→20:29)
[2019-08-24] MEDS ORDERED: ONDANSETRON 4 MG/2 ML VIAL IV PRN (11:31)
[2019-08-24] MEDS ORDERED: MIDAZOLAM 2 MG/2 ML VIAL ONE (11:33)
[2019-08-24] MEDS ORDERED: SEVOFLURANE 1 UNIT/15 MINUTE INH ONE (11:33)
[2019-08-24] MEDS ORDERED: propofoL 200 MG/20 ML VIAL IV ONE (11:33)
[2019-08-24] MEDS ORDERED: LIDOCAINE 2% 5 ML VIAL ONE (11:33)
[2019-08-24] MEDS ORDERED: ROCURONIUM 100 MG/10 ML VIAL IV ONE (11:34)
[2019-08-24] MEDS ORDERED: SUCCINYLCHOLINE 200 MG/10 ML VIAL ONE (11:34)
[2019-08-24] MEDS ORDERED: fentaNYL 100 MCG/2 ML VIAL ONE (11:34)
[2019-08-24] MEDS ORDERED: PHENYLEPHRINE 1 MG/10 ML SYRINGE IV ONE (11:34)
[2019-08-24] MEDS ORDERED: SODIUM CHLORIDE 0.9% 1,000 ML IV ONE (11:34)
[2019-08-24] MEDS ORDERED: GLYCOPYRROLATE 0.4 MG/2 ML VIAL ONE (11:34)
[2019-08-24] MEDS ORDERED: ACETAMINOPHEN 1,000 MG/100 ML VIAL IV ONE (11:34)
[2019-08-24] MEDS ORDERED: ONDANSETRON 4 MG/2 ML VIAL ONE (11:37)
[2019-08-24] MEDS ORDERED: MEPERIDINE 25 MG/1 ML VIAL ONE ×2 (11:37→12:07)
[2019-08-24] MEDS ORDERED: HYDROmorphone 2 MG/1 ML VIAL ONE (11:37)
[2019-08-24] MEDS: MEPERIDINE 25 MG/1 ML VIAL IV PRN ×2 (11:58→12:08)
[2019-08-24] MEDS: LORazepam 2 MG/1 ML VIAL IV PRN ×2 (17:51→22:19)
[2019-08-24] MEDS: levETIRAcetam 500 MG TABLET PO SCH (20:29)
[2019-08-25] MEDS: HYDROmorphone 2 MG/1 ML VIAL IV PRN ×4 (00:02→18:21)
[2019-08-25] MEDS: SODIUM CHLORIDE 0.9% 1,000 ML IV SCH (00:35)
[2019-08-25] MEDS: LORazepam 2 MG/1 ML VIAL IV PRN ×2 (00:43→04:30)
[2019-08-25] MEDS: PIPERACILLIN/TAZOBACTAM 3,375 MG in SODIUM CHLORIDE 0.9% 100 ML IV SCH (08:39)
[2019-08-25] MEDS ORDERED: LORazepam 2 MG/1 ML VIAL IV PRN (09:20)
[2019-08-25] MEDS: VANCOMYCIN INJ 1,000 MG in SODIUM CHLORIDE 0.9% 250 ML IV SCH (09:24)
[2019-08-25] MEDS: ENOXAPARIN 40 MG/0.4 ML SYRINGE SUBCUT SCH (09:29)
[2019-08-25] MEDS: CLARITHROMYCIN 500 MG TABLET PO SCH ×2 (09:30→20:12)
[2019-08-25] MEDS: levETIRAcetam 500 MG TABLET PO SCH ×2 (09:30→20:12)
[2019-08-25] MEDS: AMOXICILLIN 500 MG CAPSULE PO SCH ×2 (09:30→20:12)
[2019-08-25] MEDS: PANTOPRAZOLE 40 MG VIAL IV SCH ×2 (09:30→20:12)
[2019-08-25 09:37] LABS: Basophils % 0.4 % (0.0-0.8); Eosinophils # 0.1 10*3/uL (0.0-0.87); Eosinophils % 1.3 % (0.00-10.9); Hemoglobin 9.2 GM/DL (14.0-18.0); Immature Granulocytes Absolute 0.07 #; Lymphocytes # 0.7 10*3/uL (1.4-4.0); Lymphocytes % 9.9 % (21.2-54.2); Mean Corpuscular HGB Conc 30.7 GM/DL (32-36); Mean Corpuscular Volume 78.7 FL (87-102); Mean Platelet Volume 10.7 FL (9.6-12.0); Monocytes % 6.2 % (1.7-12.7); Neutrophils % 81.2 % (38.7-73.9); Red Blood Count 3.81 MC/CUMM (3.8-5.5); Red Cell Distribution Width 20.4 % (9.3-17.3); White Blood Count 6.9 T/CUMM (4-12)
[2019-08-25 09:38] LABS: Platelet Count 97 T/CUMM (130-400)
[2019-08-25 09:55] LABS: Calcium 7.3 MG/DL (8.5-10.1); Osmolality,Calculated 272.8 MOS/KG (273-304)
[2019-08-25 10:05] LABS: Hypochromasia 1+; Lymphocytes 9 % (20-55); Platelet Estimate Decreased; Segmented Neutrophils 88 % (50-85); Total Cells Counted 100
[2019-08-25 10:06] LABS: Microcytosis 1+
[2019-08-25] MEDS ORDERED: MAGNESIUM SULF RIDER 2 GM in PREMIX 1 EACH IV ONE (10:45)
[2019-08-26] MEDS: HYDROmorphone 2 MG/1 ML VIAL IV PRN ×2 (07:50→12:47)
[2019-08-26 09:24] LABS: Basophils % 0.6 % (0.0-0.8); Eosinophils # 0.1 10*3/uL (0.0-0.87); Eosinophils % 1.9 % (0.00-10.9); Hematocrit 31.5 VOL% (42.0-52.0); Hemoglobin 9.8 GM/DL (14.0-18.0); Immature Granulocytes % 1.9 %; Lymphocytes % 18.7 % (21.2-54.2); Mean Corpuscular HGB Conc 31.1 GM/DL (32-36); Mean Corpuscular Volume 77.8 FL (87-102); Mean Platelet Volume 11.5 FL (9.6-12.0); Monocytes % 6.1 % (1.7-12.7); Neutrophils % 70.8 % (38.7-73.9); Platelet Count 127 T/CUMM (130-400); Red Blood Count 4.05 MC/CUMM (3.8-5.5); Red Cell Distribution Width 20.6 % (9.3-17.3); White Blood Count 5.2 T/CUMM (4-12)
[2019-08-26] MEDS: levETIRAcetam 500 MG TABLET PO SCH ×2 (09:28→20:23)
[2019-08-26] MEDS: CLARITHROMYCIN 500 MG TABLET PO SCH ×2 (09:29→20:23)
[2019-08-26] MEDS: ENOXAPARIN 40 MG/0.4 ML SYRINGE SUBCUT SCH (09:29)
[2019-08-26] MEDS: PANTOPRAZOLE 40 MG VIAL IV SCH ×2 (09:29→20:23)
[2019-08-26] MEDS: AMOXICILLIN 500 MG CAPSULE PO SCH ×2 (09:29→20:23)
[2019-08-26] MEDS ORDERED: LORazepam 2 MG/1 ML VIAL IV PRN (09:36)
[2019-08-26 09:37] LABS: Calcium 8.5 MG/DL (8.5-10.1); Osmolality,Calculated 274.5 MOS/KG (273-304)
[2019-08-26 10:15] LABS: Band Neutrophils 4 % (0-10); Eosinophils 2 % (0-10); Lymphocytes 10 % (20-55); Platelet Estimate Adequate; Segmented Neutrophils 79 % (50-85); Total Cells Counted 100
[2019-08-26 10:17] LABS: Anisocytosis Slight; Hypochromasia Slight
[2019-08-27] MEDS: HYDROmorphone 2 MG/1 ML VIAL IV PRN ×2 (01:21→08:20)
[2019-08-27 07:46] LABS: Basophils # 0.1 10*3/uL (0.0-0.2); Basophils % 0.9 % (0.0-0.8); Eosinophils # 0.2 10*3/uL (0.0-0.87); Eosinophils % 2.9 % (0.00-10.9); Hematocrit 32.7 VOL% (42.0-52.0); Hemoglobin 10.1 GM/DL (14.0-18.0); Immature Granulocytes % 1.6 %; Immature Granulocytes Absolute 0.09 #; Lymphocytes # 1.3 10*3/uL (1.4-4.0); Lymphocytes % 22.2 % (21.2-54.2); Mean Corpuscular HGB Conc 30.9 GM/DL (32-36); Monocytes % 7.2 % (1.7-12.7); Neutrophils % 65.2 % (38.7-73.9); Platelet Count 153 T/CUMM (130-400); Red Blood Count 4.19 MC/CUMM (3.8-5.5); White Blood Count 5.8 T/CUMM (4-12)
[2019-08-27] MEDS: levETIRAcetam 500 MG TABLET PO SCH (08:20)
[2019-08-27] MEDS: AMOXICILLIN 500 MG CAPSULE PO SCH (08:20)
[2019-08-27] MEDS: CLARITHROMYCIN 500 MG TABLET PO SCH (08:20)
[2019-08-27] MEDS: PANTOPRAZOLE 40 MG VIAL IV SCH (08:21)
[2019-08-27] MEDS: ENOXAPARIN 40 MG/0.4 ML SYRINGE SUBCUT SCH (08:21)
[2019-08-27 08:34] LABS: Band Neutrophils 2 % (0-10); Total Cells Counted 100
[2019-08-27 08:35] LABS: Lymphocytes 23 % (20-55); Metamyelocytes 2 %; Myelocytes 1 %; Platelet Estimate Adequate; Segmented Neutrophils 62 % (50-85)
[2019-08-27 08:36] LABS: Anisocytosis 1+; Hypochromasia Slight; Microcytosis 1+
[2019-08-27 08:37] LABS: Calcium 8.4 MG/DL (8.5-10.1)
[2019-08-27 08:38] LABS: Osmolality,Calculated 277.3 MOS/KG (273-304)
[2019-08-27 12:37] VITALS: BP 147/99
== END 2019-08-27 13:47 | disposition home or self-care (01) | DRG 327 ==
LOC: N.ED 00:48 → N.EDINP 02:21 → N.TELES 03:21 → N.CLINP 08-23 13:25 → N.TELEN 08-26 14:07
PROVIDERS: ADMIT Surgery; ATTEND Surgery

== ENCOUNTER 2020-01-14 14:28 | Observation (INO) ==
[2020-01-14] MEDS ORDERED: SODIUM CHLORIDE 0.9% 1,000 ML IV STA ×2 (14:52→15:47)
[2020-01-14] MEDS ORDERED: PANTOPRAZOLE 40 MG VIAL IV STA (14:52)
[2020-01-14 15:16] LABS: Basophils % 0.2 % (0.0-0.8); Hematocrit 38.4 VOL% (42.0-52.0); Hemoglobin 12.5 GM/DL (14.0-18.0); Immature Granulocytes % 0.5 %; Immature Granulocytes Absolute 0.03 #; Lymphocytes # 0.7 10*3/uL (1.4-4.0); Lymphocytes % 10.8 % (21.2-54.2); Mean Corpuscular HGB Conc 32.6 GM/DL (32-36); Mean Corpuscular Volume 71.4 FL (87-102); Mean Platelet Volume 10.8 FL (9.6-12.0); Monocytes % 8.1 % (1.7-12.7); Neutrophils % 80.4 % (38.7-73.9); Platelet Count 259 T/CUMM (130-400); Red Blood Count 5.38 MC/CUMM (3.8-5.5); Red Cell Distribution Width 18.3 % (9.3-17.3); White Blood Count 6.6 T/CUMM (4-12)
[2020-01-14 15:37] LABS: Alanine Aminotransferase 25 U/L (16-61); Albumin 4.1 G/DL (3.4-5.0); Alkaline Phosphatase 116 U/L (45-117); Aspartate Amino Transferase 37 U/L (0-37); Blood Urea Nitrogen 7 MG/DL (7-18); Estimated Glom Filtration Rate 107 ML/MIN; Glucose 209 MG/DL (74-106); Osmolality,Calculated 252.6 MOS/KG (273-304); Total Protein 8.3 G/DL (6.4-8.3)
[2020-01-14 15:46] LABS: Bilirubin,Urine Negative (Negative); Blood, Urine Negative (Negative); Glucose,Urine (UA) Negative (Negative); Hyaline Casts,Urine 9 /LPF (0-3); Ketones,Urine 20 mg/dL (Negative); Mucus,Urine Occasional /LPF (Occasional); Nitrite,Urine Negative (Negative); Protein,Urine Negative; RBC,Urine 3 /HPF (0-4); Urine Appearance CLEAR (Clear); Urine Color Yellow (Yellow); Urine Specific Gravity 1.023 (1.001-1.035); Urine Urobilinogen < 2.0 EU/DL (0.2-1.0); WBC,Urine 1 /HPF (0-6)
[2020-01-14 15:51] LABS: Barbiturates Screen,Urine Negative (Negative); Benzodiazepines Screen,Urine Positive (Negative); Cannabinoid Screen,Urine Negative (Negative); Opiate Screen,Urine Positive (Negative); Phencyclidine Screen,Urine Negative (Negative)
[2020-01-14] MEDS ORDERED: HYDROmorphone 2 MG/1 ML VIAL IV STA (16:57)
[2020-01-14] MEDS ORDERED: GLUCAGON 1 MG VIAL IM PRN (17:04)
[2020-01-14] MEDS ORDERED: hydrALAZINE 20 MG/1 ML VIAL IV PRN (17:04)
[2020-01-14] MEDS ORDERED: ONDANSETRON 4 MG/2 ML VIAL IV PRN (17:04)
[2020-01-14] MEDS ORDERED: DEXTROSE 50% 25 GM/50 ML VIAL IV PRN (17:04)
[2020-01-14] MEDS: MORPHINE 4 MG/1 ML VIAL IV PRN ×2 (18:52→21:48)
[2020-01-14] MEDS: ENOXAPARIN 40 MG/0.4 ML SYRINGE SUBCUT SCH (21:51)
[2020-01-14] MEDS: SODIUM CHLORIDE 0.9% 1,000 ML IV SCH (21:51)
[2020-01-15] MEDS: LORazepam 2 MG/1 ML VIAL IV PRN ×5 (00:11→20:43)
[2020-01-15] MEDS: MORPHINE 4 MG/1 ML VIAL IV PRN ×7 (00:52→23:47)
[2020-01-15] MEDS: SODIUM CHLORIDE 0.9% 1,000 ML IV SCH ×3 (04:55→21:00)
[2020-01-15 05:50] LABS: Basophils % 0.2 % (0.0-0.8); Hemoglobin 11.8 GM/DL (14.0-18.0); Immature Granulocytes % 0.4 %; Immature Granulocytes Absolute 0.02 #; Lymphocytes # 0.7 10*3/uL (1.4-4.0); Lymphocytes % 13.9 % (21.2-54.2); Mean Corpuscular HGB Conc 32.8 GM/DL (32-36); Mean Corpuscular Volume 71.3 FL (87-102); Mean Platelet Volume 10.4 FL (9.6-12.0); Monocytes % 13.5 % (1.7-12.7); Platelet Count 217 T/CUMM (130-400); Red Blood Count 5.05 MC/CUMM (3.8-5.5)
[2020-01-15 06:26] LABS: Albumin 3.7 G/DL (3.4-5.0); Calcium 8.9 MG/DL (8.5-10.1); Osmolality,Calculated 269.8 MOS/KG (273-304); Thyroid Stimulating Hormone 0.386 uIU/ml (0.358-3.74); Total Protein 7.5 G/DL (6.4-8.3)
[2020-01-15] MEDS: PANTOPRAZOLE 40 MG VIAL IV SCH (08:20)
[2020-01-15] MEDS: THIAMINE 200 MG/2 ML VIAL IV SCH (08:21)
[2020-01-15] MEDS: FOLIC ACID 1 MG TABLET PO SCH (08:22)
[2020-01-15] MEDS ORDERED: KETOROLAC 10 MG TABLET PO PRN (11:55)
[2020-01-15] MEDS: traMADol 50 MG TABLET PO PRN (20:40)
[2020-01-15] MEDS: ENOXAPARIN 40 MG/0.4 ML SYRINGE SUBCUT SCH (20:40)
[2020-01-16] MEDS: LORazepam 2 MG/1 ML VIAL IV PRN ×5 (00:36→21:13)
[2020-01-16] MEDS: MORPHINE 4 MG/1 ML VIAL IV PRN ×4 (04:24→21:23)
[2020-01-16] MEDS: SODIUM CHLORIDE 0.9% 1,000 ML IV SCH ×3 (05:01→20:20)
[2020-01-16 06:37] LABS: Basophils % 0.7 % (0.0-0.8); Eosinophils % 0.3 % (0.00-10.9); Hematocrit 36.4 VOL% (42.0-52.0); Hemoglobin 11.9 GM/DL (14.0-18.0); Immature Granulocytes % 0.5 %; Immature Granulocytes Absolute 0.03 #; Lymphocytes # 1.2 10*3/uL (1.4-4.0); Lymphocytes % 20.1 % (21.2-54.2); Mean Corpuscular HGB Conc 32.7 GM/DL (32-36); Mean Corpuscular Volume 70.1 FL (87-102); Mean Platelet Volume 10.8 FL (9.6-12.0); Monocytes % 11.9 % (1.7-12.7); Neutrophils % 66.5 % (38.7-73.9); Platelet Count 209 T/CUMM (130-400); Red Blood Count 5.19 MC/CUMM (3.8-5.5); Red Cell Distribution Width 17.8 % (9.3-17.3); White Blood Count 5.8 T/CUMM (4-12)
[2020-01-16 06:59] LABS: Albumin 3.7 G/DL (3.4-5.0); Bilirubin,Total 0.6 MG/DL (0.2-1.0); Calcium 8.8 MG/DL (8.5-10.1); Osmolality,Calculated 260.5 MOS/KG (273-304); Total Protein 7.4 G/DL (6.4-8.3)
[2020-01-16] MEDS: PANTOPRAZOLE 40 MG VIAL IV SCH (09:01)
[2020-01-16] MEDS: THIAMINE 200 MG/2 ML VIAL IV SCH (09:01)
[2020-01-16] MEDS: FOLIC ACID 1 MG TABLET PO SCH (09:03)
[2020-01-16] MEDS: POTASSIUM CHLORIDE 20 MEQ TABLET PO PRN ×3 (16:00→21:12)
[2020-01-16] MEDS: traMADol 50 MG TABLET PO PRN (18:26)
[2020-01-16] MEDS ORDERED: LOPERAMIDE 2 MG CAPSULE PO PRN (20:56)
[2020-01-16] MEDS ORDERED: cloNIDine 0.1 MG TABLET PO ONE (20:56)
[2020-01-16] MEDS: ENOXAPARIN 40 MG/0.4 ML SYRINGE SUBCUT SCH (23:30)
[2020-01-17] MEDS: MORPHINE 4 MG/1 ML VIAL IV PRN ×2 (01:15→14:04)
[2020-01-17] MEDS: LORazepam 2 MG/1 ML VIAL IV PRN ×4 (01:15→18:27)
[2020-01-17] MEDS: POTASSIUM CHLORIDE 20 MEQ TABLET PO PRN ×2 (01:18→09:51)
[2020-01-17] MEDS: SODIUM CHLORIDE 0.9% 1,000 ML IV SCH ×5 (03:14→22:46)
[2020-01-17 06:50] LABS: Basophils # 0.1 10*3/uL (0.0-0.2); Basophils % 0.9 % (0.0-0.8); Eosinophils # 0.1 10*3/uL (0.0-0.87); Eosinophils % 0.7 % (0.00-10.9); Hematocrit 36.5 VOL% (42.0-52.0); Hemoglobin 11.8 GM/DL (14.0-18.0); Immature Granulocytes % 0.4 %; Immature Granulocytes Absolute 0.03 #; Lymphocytes # 1.5 10*3/uL (1.4-4.0); Lymphocytes % 21.5 % (21.2-54.2); Mean Corpuscular HGB Conc 32.3 GM/DL (32-36); Mean Corpuscular Volume 72.1 FL (87-102); Mean Platelet Volume 11.1 FL (9.6-12.0); Monocytes % 10.1 % (1.7-12.7); Neutrophils % 66.4 % (38.7-73.9); Platelet Count 226 T/CUMM (130-400); Red Blood Count 5.06 MC/CUMM (3.8-5.5); Red Cell Distribution Width 18.5 % (9.3-17.3); White Blood Count 6.9 T/CUMM (4-12)
[2020-01-17 07:14] LABS: Calcium 8.7 MG/DL (8.5-10.1); Osmolality,Calculated 271.7 MOS/KG (273-304)
[2020-01-17] MEDS: amLODIPine 5 MG TABLET PO SCH (09:51)
[2020-01-17] MEDS: FOLIC ACID 1 MG TABLET PO SCH (09:51)
[2020-01-17] MEDS: PANTOPRAZOLE 40 MG VIAL IV SCH (12:08)
[2020-01-17] MEDS: THIAMINE 200 MG/2 ML VIAL IV SCH (12:09)
[2020-01-17] MEDS: ENOXAPARIN 40 MG/0.4 ML SYRINGE SUBCUT SCH (20:42)
[2020-01-18] MEDS: MORPHINE 4 MG/1 ML VIAL IV PRN ×2 (00:13→09:38)
[2020-01-18] MEDS: SODIUM CHLORIDE 0.9% 1,000 ML IV SCH ×2 (01:28→09:22)
[2020-01-18] MEDS: LORazepam 2 MG/1 ML VIAL IV PRN (05:10)
[2020-01-18] MEDS: amLODIPine 5 MG TABLET PO SCH (08:44)
[2020-01-18] MEDS: FOLIC ACID 1 MG TABLET PO SCH (08:44)
[2020-01-18] MEDS: THIAMINE 200 MG/2 ML VIAL IV SCH (08:46)
[2020-01-18] MEDS: PANTOPRAZOLE 40 MG VIAL IV SCH (08:49)
[2020-01-18 11:37] VITALS: BP 142/90
== END 2020-01-18 12:06 | disposition home or self-care (01) ==
LOC: N.ED 14:28 → N.EDINP 14:28 → SUATTDRO 17:04 → N.3E 18:26
PROVIDERS: ADMIT Internal Medicine; ATTEND Internal Medicine

== ENCOUNTER 2020-07-05 04:45 | Observation (INO) ==
[2020-07-05] MEDS ORDERED: ONDANSETRON 4 MG/2 ML VIAL IV STA (05:19)
[2020-07-05] MEDS ORDERED: SODIUM CHLORIDE 0.9% 1,000 ML IV STA ×2 (05:19→06:20)
[2020-07-05] MEDS ORDERED: HYDROmorphone 2 MG/1 ML VIAL IV STA (05:19)
[2020-07-05 05:42] LABS: Basophils % 0.9 % (0.0-0.8); Eosinophils # 0.1 10*3/uL (0.0-0.87); Eosinophils % 2.3 % (0.00-10.9); Hematocrit 36.5 VOL% (42.0-52.0); Hemoglobin 11.4 GM/DL (14.0-18.0); Immature Granulocytes % 0.5 %; Immature Granulocytes Absolute 0.02 #; Lymphocytes % 23.2 % (21.2-54.2); Mean Corpuscular HGB Conc 31.2 GM/DL (32-36); Mean Corpuscular Volume 69.7 FL (87-102); Neutrophils % 61.1 % (38.7-73.9); Platelet Count 157 T/CUMM (130-400); Red Blood Count 5.24 MC/CUMM (3.8-5.5); Red Cell Distribution Width 19.6 % (9.3-17.3); White Blood Count 4.4 T/CUMM (4-12)
[2020-07-05 05:59] LABS: Alanine Aminotransferase 37 U/L (16-61); Albumin 3.7 G/DL (3.4-5.0); Alkaline Phosphatase 193 U/L (45-117); Aspartate Amino Transferase 35 U/L (0-37); Bilirubin,Total < 0.39 MG/DL (0.2-1.0); Blood Urea Nitrogen 6 MG/DL (7-18); Calcium 8.9 MG/DL (8.5-10.1); Carbon Dioxide 23 MMOL/L (21-32); Estimated Glom Filtration Rate 140 ML/MIN; Glucose 147 MG/DL (74-106); Osmolality,Calculated 251.5 MOS/KG (273-304); Potassium 4.2 MMOL/L (3.5-5.1); Sodium 125 MMOL/L (136-145); Total Protein 7.5 G/DL (5.0-7.5)
[2020-07-05 06:06] LABS: Hypochromasia 1+; Microcytosis 1+
[2020-07-05 06:07] LABS: Ovalocytes Slight; Platelet Estimate Adequate
[2020-07-05] MEDS ORDERED: GLUCAGON 1 MG VIAL IM PRN (08:14)
[2020-07-05] MEDS ORDERED: ONDANSETRON 4 MG/2 ML VIAL IV PRN (08:14)
[2020-07-05] MEDS ORDERED: DEXTROSE 50% 25 GM/50 ML VIAL IV PRN (08:14)
[2020-07-05 08:52] LABS: Bilirubin,Urine Negative (Negative); Blood, Urine Negative (Negative); Glucose,Urine (UA) Negative (Negative); Ketones,Urine Negative (Negative); Nitrite,Urine Negative (Negative); Protein,Urine Negative; Urine Appearance CLEAR (Clear); Urine Color Straw (Yellow); Urine Urobilinogen < 2.0 EU/DL (0.2-1.0); WBC,Urine 1 /HPF (0-6)
[2020-07-05 08:57] LABS: Barbiturates Screen,Urine Negative (Negative); Benzodiazepines Screen,Urine Negative (Negative); Cannabinoid Screen,Urine Negative (Negative); Opiate Screen,Urine Positive (Negative); Phencyclidine Screen,Urine Negative (Negative)
[2020-07-05] MEDS ORDERED: PANTOPRAZOLE 40 MG VIAL IV SCH (09:00)
[2020-07-05] MEDS: MORPHINE 4 MG/1 ML VIAL IV PRN ×5 (10:47→23:46)
[2020-07-05] MEDS: SODIUM CHLORIDE 0.9% 1,000 ML IV SCH ×2 (11:01→22:40)
[2020-07-05] MEDS: NICOTINE 21 MG/24 HR PATCH TRANSDERM SCH (11:02)
[2020-07-06] MEDS: MORPHINE 4 MG/1 ML VIAL IV PRN (03:55)
[2020-07-06 06:38] LABS: Basophils % 0.5 % (0.0-0.8); Eosinophils % 0.2 % (0.00-10.9); Hematocrit 38.7 VOL% (42.0-52.0); Hemoglobin 12.3 GM/DL (14.0-18.0); Immature Granulocytes % 0.5 %; Immature Granulocytes Absolute 0.02 #; Lymphocytes # 0.8 10*3/uL (1.4-4.0); Lymphocytes % 18.9 % (21.2-54.2); Mean Corpuscular HGB Conc 31.8 GM/DL (32-36); Mean Corpuscular Volume 68.9 FL (87-102); Monocytes % 7.5 % (1.7-12.7); Neutrophils % 72.4 % (38.7-73.9); Platelet Count 157 T/CUMM (130-400); Red Blood Count 5.62 MC/CUMM (3.8-5.5); Red Cell Distribution Width 20.1 % (9.3-17.3); White Blood Count 4.4 T/CUMM (4-12)
[2020-07-06 06:53] LABS: Calcium 8.9 MG/DL (8.5-10.1); Osmolality,Calculated 266.1 MOS/KG (273-304); Potassium 3.7 MMOL/L (3.5-5.1)
[2020-07-06 06:58] LABS: Platelet Estimate Adequate
[2020-07-06] MEDS ORDERED: ACETAMINOPHEN 325 MG TABLET PO PRN (07:37)
[2020-07-06] MEDS ORDERED: PANTOPRAZOLE 40 MG TABLET PO SCH (09:00)
[2020-07-06] MEDS: SODIUM CHLORIDE 0.9% 1,000 ML IV SCH (09:22)
[2020-07-06] MEDS: NICOTINE 21 MG/24 HR PATCH TRANSDERM SCH (09:27)
[2020-07-06] MEDS ORDERED: lisinopriL 10 MG TABLET PO SCH (11:30)
[2020-07-06 12:44] VITALS: BP 172/92
== END 2020-07-06 15:25 | disposition home or self-care (01) ==
LOC: N.EDINP 04:45 → N.ED 04:45 → N.TELES 09:21
PROVIDERS: ADMIT Hospitalist; ATTEND Hospitalist

== ENCOUNTER 2020-07-15 18:43 | Inpatient (IN) ==
[2020-07-15] MEDS ORDERED: SODIUM CHLORIDE 0.9% 1,000 ML IV STA (19:37)
[2020-07-15 20:10] LABS: Basophils % 0.4 % (0.0-0.8); Eosinophils # 0.1 10*3/uL (0.0-0.87); Eosinophils % 0.6 % (0.00-10.9); Immature Granulocytes % 0.6 %; Immature Granulocytes Absolute 0.06 #; Lymphocytes # 1.7 10*3/uL (1.4-4.0); Lymphocytes % 15.4 % (21.2-54.2); Mean Corpuscular Volume 71.4 FL (87-102); Mean Platelet Volume 10.3 FL (9.6-12.0); Monocytes % 8.1 % (1.7-12.7); Neutrophils % 74.9 % (38.7-73.9); Platelet Count 262 T/CUMM (130-400); Red Blood Count 4.06 MC/CUMM (3.8-5.5); Red Cell Distribution Width 20.3 % (9.3-17.3); White Blood Count 10.8 T/CUMM (4-12)
[2020-07-15 20:34] LABS: Bilirubin,Total 0.6 MG/DL (0.2-1.0); Osmolality,Calculated 256.9 MOS/KG (273-304); Potassium 4.3 MMOL/L (3.5-5.1); Total Protein 7.3 G/DL (6.4-8.2)
[2020-07-15] MEDS ORDERED: HYDROmorphone 2 MG/1 ML VIAL IV STA ×2 (20:37→22:43)
[2020-07-15] MEDS ORDERED: ONDANSETRON 4 MG/2 ML VIAL IV STA (20:37)
[2020-07-15] MEDS ORDERED: PANTOPRAZOLE 40 MG VIAL IV STA (21:04)
[2020-07-15 21:09] LABS: Bilirubin,Urine Negative (Negative); Blood, Urine Negative (Negative); Glucose,Urine (UA) Negative (Negative); Hyaline Casts,Urine 20 /LPF (0-3); Ketones,Urine 5 mg/dL (Negative); Mucus,Urine Occasional /LPF (Occasional); Nitrite,Urine Negative (Negative); Protein,Urine Negative; RBC,Urine 3 /HPF (0-4); Urine Appearance CLEAR (Clear); Urine Color Yellow (Yellow); Urine Specific Gravity 1.034 (1.001-1.035); Urine Urobilinogen < 2.0 EU/DL (0.2-1.0); WBC,Urine <1 /HPF (0-6)
[2020-07-15] MEDS ORDERED: ACETAMINOPHEN 325 MG TABLET PO PRN (21:25)
[2020-07-15] MEDS ORDERED: ONDANSETRON 4 MG/2 ML VIAL IV PRN (21:25)
[2020-07-16] MEDS: LACTATED RINGERS 1,000 ML IV SCH ×4 (02:28→23:13)
[2020-07-16] MEDS: HYDROmorphone 2 MG/1 ML VIAL IV PRN ×3 (02:28→10:58)
[2020-07-16 05:56] LABS: Basophils % 0.3 % (0.0-0.8); Eosinophils % 0.1 % (0.00-10.9); Hematocrit 25.6 VOL% (42.0-52.0); Hemoglobin 8.2 GM/DL (14.0-18.0); Immature Granulocytes % 0.6 %; Immature Granulocytes Absolute 0.06 #; Lymphocytes # 1.3 10*3/uL (1.4-4.0); Lymphocytes % 11.6 % (21.2-54.2); Mean Corpuscular Volume 69.6 FL (87-102); Mean Platelet Volume 10.6 FL (9.6-12.0); Monocytes % 6.8 % (1.7-12.7); Neutrophils % 80.6 % (38.7-73.9); Platelet Count 253 T/CUMM (130-400); Red Blood Count 3.68 MC/CUMM (3.8-5.5); White Blood Count 10.8 T/CUMM (4-12)
[2020-07-16 06:39] LABS: Albumin 3.6 G/DL (3.4-5.0); Bilirubin,Total 0.5 MG/DL (0.2-1.0); Calcium 8.8 MG/DL (8.5-10.1); Osmolality,Calculated 259.7 MOS/KG (273-304); Potassium 4.3 MMOL/L (3.5-5.1); Total Protein 6.9 G/DL (6.4-8.2)
[2020-07-16 10:50] LABS: INR 1.2; PT Patient Result 12.3 SECS (9.8-11.9); Partial Thromboplastin Time 33.6 SECS (23.9-33.8)
[2020-07-16] MEDS: PANTOPRAZOLE 40 MG TABLET PO SCH (11:53)
[2020-07-16] MEDS ORDERED: NALOXONE 0.4 MG/ML VIAL IV PRN (12:05)
[2020-07-16] MEDS: HYDROmorphone PCA 30 MG/30 ML SYRINGE IV SCH (14:10)
[2020-07-17 06:01] LABS: Basophils % 0.4 % (0.0-0.8); Eosinophils # 0.2 10*3/uL (0.0-0.87); Eosinophils % 2.4 % (0.00-10.9); Hematocrit 24.6 VOL% (42.0-52.0); Hemoglobin 7.6 GM/DL (14.0-18.0); Immature Granulocytes % 0.4 %; Immature Granulocytes Absolute 0.03 #; Lymphocytes # 1.4 10*3/uL (1.4-4.0); Mean Corpuscular HGB Conc 30.9 GM/DL (32-36); Mean Corpuscular Volume 70.3 FL (87-102); Mean Platelet Volume 11.1 FL (9.6-12.0); Monocytes % 11.5 % (1.7-12.7); Neutrophils % 66.3 % (38.7-73.9); Platelet Count 260 T/CUMM (130-400); Red Cell Distribution Width 20.3 % (9.3-17.3); White Blood Count 7.5 T/CUMM (4-12)
[2020-07-17 06:18] LABS: Osmolality,Calculated 263.4 MOS/KG (273-304); Potassium 4.1 MMOL/L (3.5-5.1)
[2020-07-17 06:35] LABS: Eosinophils 1 % (0-10); Lymphocytes 14 % (20-55); Segmented Neutrophils 78 % (50-85); Total Cells Counted 100
[2020-07-17 06:36] LABS: Hypochromasia 2+; Microcytosis 1+; Platelet Estimate Normal; Target Cells Slight
[2020-07-17] MEDS: LACTATED RINGERS 1,000 ML IV SCH (07:55)
[2020-07-17] MEDS ORDERED: ONDANSETRON 4 MG/2 ML VIAL IV PRN (09:20)
[2020-07-17] MEDS: KETOROLAC 15 MG/1 ML VIAL IV SCH ×3 (10:33→21:34)
[2020-07-17] MEDS: PANTOPRAZOLE 40 MG TABLET PO SCH (12:12)
[2020-07-17] MEDS: GABAPENTIN 400 MG CAPSULE PO SCH ×2 (16:33→21:34)
[2020-07-18] MEDS: KETOROLAC 15 MG/1 ML VIAL IV SCH ×4 (03:16→21:27)
[2020-07-18 06:07] LABS: Calcium 8.4 MG/DL (8.5-10.1); Osmolality,Calculated 266.2 MOS/KG (273-304); Potassium 4.3 MMOL/L (3.5-5.1)
[2020-07-18 06:33] LABS: Basophils % 0.6 % (0.0-0.8); Eosinophils # 0.3 10*3/uL (0.0-0.87); Eosinophils % 4.6 % (0.00-10.9); Hematocrit 21.2 VOL% (42.0-52.0); Hemoglobin 6.6 GM/DL (14.0-18.0); Immature Granulocytes % 0.7 %; Immature Granulocytes Absolute 0.04 #; Lymphocytes # 1.3 10*3/uL (1.4-4.0); Lymphocytes % 23.5 % (21.2-54.2); Mean Corpuscular HGB Conc 31.1 GM/DL (32-36); Mean Corpuscular Volume 71.6 FL (87-102); Mean Platelet Volume 11.1 FL (9.6-12.0); Monocytes % 7.2 % (1.7-12.7); Neutrophils % 63.4 % (38.7-73.9); Platelet Count 206 T/CUMM (130-400); Red Blood Count 2.96 MC/CUMM (3.8-5.5); Red Cell Distribution Width 20.3 % (9.3-17.3); White Blood Count 5.4 T/CUMM (4-12)
[2020-07-18] MEDS: HYDROmorphone PCA 30 MG/30 ML SYRINGE IV SCH ×2 (07:12→12:20)
[2020-07-18] MEDS ORDERED: SODIUM CHLORIDE 0.9% 1,000 ML IV PRN (07:35)
[2020-07-18] MEDS: SERTRALINE 50 MG TABLET PO SCH (08:59)
[2020-07-18] MEDS: lisinopriL 10 MG TABLET PO SCH (08:59)
[2020-07-18] MEDS: GABAPENTIN 400 MG CAPSULE PO SCH ×3 (09:00→21:27)
[2020-07-18] MEDS: PANTOPRAZOLE 40 MG TABLET PO SCH (09:00)
[2020-07-18] MEDS ORDERED: cefOXitin 2,000 MG in SYRINGE 1 EACH IV ONE (11:05)
[2020-07-18 17:49] LABS: Hematocrit 28.7 VOL% (42.0-52.0); Hemoglobin 9.3 GM/DL (14.0-18.0)
[2020-07-19] MEDS: KETOROLAC 15 MG/1 ML VIAL IV SCH ×4 (04:14→21:44)
[2020-07-19 05:21] LABS: Basophils % 0.6 % (0.0-0.8); Eosinophils # 0.3 10*3/uL (0.0-0.87); Hemoglobin 8.7 GM/DL (14.0-18.0); Immature Granulocytes % 0.4 %; Immature Granulocytes Absolute 0.02 #; Lymphocytes # 1.4 10*3/uL (1.4-4.0); Lymphocytes % 27.4 % (21.2-54.2); Mean Corpuscular HGB Conc 32.2 GM/DL (32-36); Mean Corpuscular Volume 75.8 FL (87-102); Mean Platelet Volume 10.6 FL (9.6-12.0); Monocytes % 8.8 % (1.7-12.7); Neutrophils % 57.8 % (38.7-73.9); Platelet Count 198 T/CUMM (130-400); Red Blood Count 3.56 MC/CUMM (3.8-5.5); Red Cell Distribution Width 21.8 % (9.3-17.3); White Blood Count 5.2 T/CUMM (4-12)
[2020-07-19 05:37] LABS: Calcium 8.3 MG/DL (8.5-10.1); Osmolality,Calculated 275.5 MOS/KG (273-304)
[2020-07-19 05:47] LABS: Eosinophils 7 % (0-10); Hypochromasia 1+; Lymphocytes 21 % (20-55); Microcytosis 1+; Platelet Estimate Adequate; Segmented Neutrophils 65 % (50-85); Total Cells Counted 100
[2020-07-19] MEDS ORDERED: cefOXitin 2,000 MG in SYRINGE 1 EACH IV ONE (06:00)
[2020-07-19] MEDS: GABAPENTIN 400 MG CAPSULE PO SCH ×3 (08:06→20:41)
[2020-07-19] MEDS: SERTRALINE 50 MG TABLET PO SCH (08:07)
[2020-07-19] MEDS: PANTOPRAZOLE 40 MG TABLET PO SCH (08:07)
[2020-07-19] MEDS: lisinopriL 10 MG TABLET PO SCH (08:08)
[2020-07-19] MEDS ORDERED: LIDOCAINE 1%/EPI INJ 20 ML VIAL ONE (09:10)
[2020-07-19] MEDS ORDERED: propofoL 200 MG/20 ML VIAL IV ONE (09:15)
[2020-07-19] MEDS ORDERED: ONDANSETRON 4 MG/2 ML VIAL ONE (09:15)
[2020-07-19] MEDS ORDERED: LIDOCAINE 2% 5 ML VIAL ONE (09:16)
[2020-07-19] MEDS ORDERED: fentaNYL 100 MCG/2 ML VIAL ONE ×2 (09:16→10:13)
[2020-07-19] MEDS ORDERED: MIDAZOLAM 2 MG/2 ML VIAL ONE (09:16)
[2020-07-19] MEDS ORDERED: ROCURONIUM 50 MG/5 ML VIAL IV ONE (09:16)
[2020-07-19] MEDS ORDERED: SUCCINYLCHOLINE 200 MG/10 ML VIAL ONE (10:36)
[2020-07-19] MEDS ORDERED: SEVOFLURANE 1 UNIT/15 MINUTE INH ONE (10:36)
[2020-07-19] MEDS ORDERED: LACTATED RINGERS 1,000 ML IV ONE (10:36)
[2020-07-19] MEDS ORDERED: HYDROmorphone 2 MG/1 ML VIAL ONE (10:42)
[2020-07-19] MEDS: HYDROmorphone 2 MG/1 ML VIAL IV PRN ×3 (10:43→11:00)
[2020-07-19] MEDS ORDERED: ONDANSETRON 4 MG/2 ML VIAL IV PRN (10:48)
[2020-07-19] MEDS: HYDROmorphone PCA 30 MG/30 ML SYRINGE IV SCH (17:32)
[2020-07-19] MEDS: oxyCODONE/ACETAMINOPHEN 5-325 MG TABLET PO PRN ×2 (17:32→23:28)
[2020-07-20] MEDS: KETOROLAC 15 MG/1 ML VIAL IV SCH ×4 (03:45→21:30)
[2020-07-20 05:03] LABS: Basophils % 0.1 % (0.0-0.8); Eosinophils # 0.1 10*3/uL (0.0-0.87); Eosinophils % 1.7 % (0.00-10.9); Hematocrit 27.9 VOL% (42.0-52.0); Hemoglobin 8.8 GM/DL (14.0-18.0); Immature Granulocytes % 0.3 %; Immature Granulocytes Absolute 0.02 #; Lymphocytes # 1.2 10*3/uL (1.4-4.0); Lymphocytes % 15.2 % (21.2-54.2); Mean Corpuscular HGB Conc 31.5 GM/DL (32-36); Mean Corpuscular Volume 77.1 FL (87-102); Mean Platelet Volume 10.3 FL (9.6-12.0); Monocytes % 9.2 % (1.7-12.7); Neutrophils % 73.5 % (38.7-73.9); Platelet Count 249 T/CUMM (130-400); Red Blood Count 3.62 MC/CUMM (3.8-5.5); Red Cell Distribution Width 21.7 % (9.3-17.3); White Blood Count 7.8 T/CUMM (4-12)
[2020-07-20 05:41] LABS: Calcium 8.7 MG/DL (8.5-10.1); Osmolality,Calculated 268.2 MOS/KG (273-304); Potassium 3.9 MMOL/L (3.5-5.1)
[2020-07-20] MEDS: oxyCODONE/ACETAMINOPHEN 5-325 MG TABLET PO PRN (08:38)
[2020-07-20] MEDS: GABAPENTIN 400 MG CAPSULE PO SCH ×3 (08:38→21:34)
[2020-07-20] MEDS: PANTOPRAZOLE 40 MG TABLET PO SCH (08:38)
[2020-07-20] MEDS: SERTRALINE 50 MG TABLET PO SCH (08:39)
[2020-07-20] MEDS: lisinopriL 10 MG TABLET PO SCH (08:39)
[2020-07-20] MEDS ORDERED: diphenhydrAMINE CAP 25 MG CAPSULE PO PRN (16:57)
[2020-07-21] MEDS: HYDROmorphone PCA 30 MG/30 ML SYRINGE IV SCH (01:41)
[2020-07-21 06:19] LABS: Hematocrit 28.9 VOL% (42.0-52.0); Hemoglobin 9.1 GM/DL (14.0-18.0)
[2020-07-21] MEDS: KETOROLAC 15 MG/1 ML VIAL IV SCH ×4 (06:25→21:47)
[2020-07-21] MEDS: GABAPENTIN 400 MG CAPSULE PO SCH ×3 (08:42→21:46)
[2020-07-21] MEDS: PANTOPRAZOLE 40 MG TABLET PO SCH (08:42)
[2020-07-21] MEDS: SERTRALINE 50 MG TABLET PO SCH (08:42)
[2020-07-21] MEDS: lisinopriL 10 MG TABLET PO SCH (08:42)
[2020-07-21] MEDS: oxyCODONE/ACETAMINOPHEN 5-325 MG TABLET PO PRN ×3 (08:43→23:55)
[2020-07-21] MEDS ORDERED: HYDROmorphone 2 MG/1 ML VIAL IV PRN (12:36)
[2020-07-21] MEDS: METHOCARBAMOL 500 MG TABLET PO SCH ×2 (12:48→21:46)
[2020-07-22] MEDS: KETOROLAC 15 MG/1 ML VIAL IV SCH (05:42)
[2020-07-22] MEDS: oxyCODONE/ACETAMINOPHEN 5-325 MG TABLET PO PRN (05:45)
[2020-07-22] MEDS: SERTRALINE 50 MG TABLET PO SCH (08:48)
[2020-07-22] MEDS: lisinopriL 10 MG TABLET PO SCH (08:48)
[2020-07-22] MEDS: METHOCARBAMOL 500 MG TABLET PO SCH (08:48)
[2020-07-22] MEDS: PANTOPRAZOLE 40 MG TABLET PO SCH (08:48)
[2020-07-22] MEDS: GABAPENTIN 400 MG CAPSULE PO SCH (08:48)
[2020-07-22 11:53] VITALS: BP 177/107
== END 2020-07-22 13:25 | disposition home or self-care (01) | DRG 908 ==
LOC: N.EDINP 18:43 → N.ED 18:43 → N.EDINP 23:42 → N.3E 07-16 00:20
PROVIDERS: ADMIT Surgery; ATTEND Surgery

== ENCOUNTER 2020-07-31 03:26 | Inpatient (IN) ==
[2020-07-31] MEDS ORDERED: ONDANSETRON 4 MG/2 ML VIAL IV STA (03:55)
[2020-07-31] MEDS ORDERED: SODIUM CHLORIDE 0.9% 1,000 ML IV STA (03:55)
[2020-07-31 04:28] LABS: Basophils # 0.1 10*3/uL (0.0-0.2); Basophils % 0.8 % (0.0-0.8); Eosinophils # 0.1 10*3/uL (0.0-0.87); Eosinophils % 1.4 % (0.00-10.9); Hematocrit 36.3 VOL% (42.0-52.0); Hemoglobin 11.5 GM/DL (14.0-18.0); Immature Granulocytes % 0.4 %; Immature Granulocytes Absolute 0.03 #; Lymphocytes # 0.9 10*3/uL (1.4-4.0); Lymphocytes % 11.5 % (21.2-54.2); Mean Corpuscular HGB Conc 31.7 GM/DL (32-36); Mean Corpuscular Volume 77.7 FL (87-102); Mean Platelet Volume 10.8 FL (9.6-12.0); Monocytes % 7.2 % (1.7-12.7); Neutrophils % 78.7 % (38.7-73.9); Platelet Count 219 T/CUMM (130-400); Red Blood Count 4.67 MC/CUMM (3.8-5.5); White Blood Count 7.7 T/CUMM (4-12)
[2020-07-31 04:43] LABS: Bilirubin,Total 0.5 MG/DL (0.2-1.0); Calcium 9.3 MG/DL (8.5-10.1); Osmolality,Calculated 256.2 MOS/KG (273-304); Potassium 4.8 MMOL/L (3.5-5.1); Total Protein 7.7 G/DL (6.4-8.2)
[2020-07-31 04:46] LABS: Hypochromasia 1+; Microcytosis 1+; Platelet Estimate Adequate
[2020-07-31] MEDS ORDERED: MAGNESIUM SULF RIDER 2 GM in PREMIX 1 EACH IV STA (04:50)
[2020-07-31] MEDS ORDERED: HYDROmorphone 2 MG/1 ML VIAL IV ONE (05:16)
[2020-07-31 05:40] LABS: Bilirubin,Urine Negative (Negative); Blood, Urine Negative (Negative); Glucose,Urine (UA) Negative (Negative); Ketones,Urine Negative (Negative); Nitrite,Urine Negative (Negative); Protein,Urine Negative; RBC,Urine <1 /HPF (0-4); Urine Appearance CLEAR (Clear); Urine Color Straw (Yellow); Urine Urobilinogen < 2.0 EU/DL (0.2-1.0); WBC,Urine <1 /HPF (0-6)
[2020-07-31] MEDS ORDERED: ACETAMINOPHEN 325 MG TABLET PO PRN (07:08)
[2020-07-31] MEDS ORDERED: ONDANSETRON 4 MG/2 ML VIAL IV PRN (07:08)
[2020-07-31] MEDS ORDERED: HYDROmorphone 2 MG/1 ML VIAL IV PRN ×2 (07:08→10:23)
[2020-07-31] MEDS ORDERED: PANTOPRAZOLE 40 MG VIAL IV SCH (09:00)
[2020-07-31] MEDS: SODIUM CHLORIDE 0.9% 1,000 ML IV SCH ×4 (09:56→23:21)
[2020-07-31] MEDS: HYDROmorphone 2 MG/1 ML VIAL IV PRN ×6 (13:04→23:22)
[2020-07-31] MEDS: ONDANSETRON 4 MG/2 ML VIAL IV PRN (13:06)
[2020-07-31] MEDS: GABAPENTIN 400 MG CAPSULE PO SCH ×2 (15:18→21:20)
[2020-07-31] MEDS ORDERED: HydrOXYzine PAMOATE 25 MG CAPSULE PO PRN (16:09)
[2020-07-31] MEDS: PANTOPRAZOLE 40 MG TABLET PO SCH (21:20)
[2020-08-01] MEDS: HYDROmorphone 2 MG/1 ML VIAL IV PRN ×7 (01:29→13:53)
[2020-08-01] MEDS: SODIUM CHLORIDE 0.9% 1,000 ML IV SCH ×3 (03:33→20:52)
[2020-08-01 05:09] LABS: Basophils # 0.1 10*3/uL (0.0-0.2); Basophils % 0.6 % (0.0-0.8); Eosinophils # 0.1 10*3/uL (0.0-0.87); Eosinophils % 1.7 % (0.00-10.9); Hematocrit 36.8 VOL% (42.0-52.0); Hemoglobin 11.6 GM/DL (14.0-18.0); Immature Granulocytes % 0.4 %; Immature Granulocytes Absolute 0.03 #; Lymphocytes # 1.2 10*3/uL (1.4-4.0); Lymphocytes % 15.1 % (21.2-54.2); Mean Corpuscular HGB Conc 31.5 GM/DL (32-36); Mean Platelet Volume 10.7 FL (9.6-12.0); Monocytes % 6.3 % (1.7-12.7); Neutrophils % 75.9 % (38.7-73.9); Platelet Count 233 T/CUMM (130-400); Red Blood Count 4.78 MC/CUMM (3.8-5.5); White Blood Count 8.2 T/CUMM (4-12)
[2020-08-01 05:22] LABS: Albumin 3.8 G/DL (3.4-5.0); Calcium 9.3 MG/DL (8.5-10.1); Osmolality,Calculated 259.7 MOS/KG (273-304); Potassium 4.6 MMOL/L (3.5-5.1); Total Protein 7.4 G/DL (6.4-8.2)
[2020-08-01 05:29] LABS: Hypochromasia Slight; Microcytosis Slight; Platelet Estimate Adequate
[2020-08-01] MEDS ORDERED: MAGNESIUM SULF RIDER 2 GM in PREMIX 1 EACH IV PRN (07:30)
[2020-08-01] MEDS ORDERED: MAGNESIUM SULF RIDER 4 GM in PREMIX 1 EACH IV PRN (07:30)
[2020-08-01] MEDS: PANTOPRAZOLE 40 MG TABLET PO SCH ×2 (08:46→20:51)
[2020-08-01] MEDS: lisinopriL 10 MG TABLET PO SCH (08:46)
[2020-08-01] MEDS: GABAPENTIN 400 MG CAPSULE PO SCH ×3 (08:46→20:51)
[2020-08-01] MEDS: VENLAFAXINE XR 37.5 MG CAPSULE PO SCH (08:46)
[2020-08-01] MEDS ORDERED: SERTRALINE 50 MG TABLET PO SCH (09:00)
[2020-08-01] MEDS: ONDANSETRON 4 MG/2 ML VIAL IV PRN (09:40)
[2020-08-01] MEDS ORDERED: NALOXONE 0.4 MG/ML VIAL IV PRN (14:14)
[2020-08-01] MEDS: HYDROmorphone PCA 30 MG/30 ML SYRINGE IV SCH (14:45)
[2020-08-01 14:58] LABS: Barbiturates Screen,Urine Negative (Negative); Benzodiazepines Screen,Urine Negative (Negative); Cannabinoid Screen,Urine Negative (Negative); Opiate Screen,Urine Positive (Negative); Phencyclidine Screen,Urine Negative (Negative)
[2020-08-01] MEDS: METOCLOPRAMIDE 10 MG/2 ML VIAL IV SCH (18:10)
[2020-08-01] MEDS ORDERED: ZALEPLON 5 MG CAPSULE PO ONE (21:00)
[2020-08-02] MEDS: METOCLOPRAMIDE 10 MG/2 ML VIAL IV SCH ×5 (01:25→23:40)
[2020-08-02 05:29] LABS: Basophils # 0.1 10*3/uL (0.0-0.2); Basophils % 0.4 % (0.0-0.8); Eosinophils # 0.2 10*3/uL (0.0-0.87); Eosinophils % 1.2 % (0.00-10.9); Hematocrit 39.4 VOL% (42.0-52.0); Hemoglobin 12.5 GM/DL (14.0-18.0); Immature Granulocytes % 0.5 %; Immature Granulocytes Absolute 0.06 #; Lymphocytes % 7.6 % (21.2-54.2); Mean Corpuscular HGB Conc 31.7 GM/DL (32-36); Mean Corpuscular Volume 77.3 FL (87-102); Mean Platelet Volume 11.4 FL (9.6-12.0); Monocytes % 9.3 % (1.7-12.7); Platelet Count 253 T/CUMM (130-400); Red Cell Distribution Width 21.4 % (9.3-17.3); White Blood Count 13.2 T/CUMM (4-12)
[2020-08-02 05:49] LABS: Anisocytosis 1+; Hypochromasia 1+; Microcytosis 1+; Ovalocytes Slight; Platelet Estimate Normal
[2020-08-02] MEDS: SODIUM CHLORIDE 0.9% 1,000 ML IV SCH ×4 (05:50→21:38)
[2020-08-02 06:09] LABS: Calcium 9.1 MG/DL (8.5-10.1); Osmolality,Calculated 259.7 MOS/KG (273-304); Potassium 4.5 MMOL/L (3.5-5.1)
[2020-08-02] MEDS: PANTOPRAZOLE 40 MG TABLET PO SCH ×2 (08:35→21:39)
[2020-08-02] MEDS: GABAPENTIN 400 MG CAPSULE PO SCH ×3 (08:35→21:39)
[2020-08-02] MEDS: VENLAFAXINE XR 37.5 MG CAPSULE PO SCH (08:35)
[2020-08-02] MEDS: lisinopriL 10 MG TABLET PO SCH (08:35)
[2020-08-02] MEDS: HYDROmorphone PCA 30 MG/30 ML SYRINGE IV SCH (14:58)
[2020-08-02] MEDS: ZALEPLON 5 MG CAPSULE PO PRN (22:45)
[2020-08-03] MEDS: SODIUM CHLORIDE 0.9% 1,000 ML IV SCH ×3 (05:27→15:09)
[2020-08-03 05:33] LABS: Basophils # 0.1 10*3/uL (0.0-0.2); Basophils % 0.7 % (0.0-0.8); Eosinophils # 0.3 10*3/uL (0.0-0.87); Eosinophils % 4.7 % (0.00-10.9); Hematocrit 32.6 VOL% (42.0-52.0); Hemoglobin 10.3 GM/DL (14.0-18.0); Immature Granulocytes % 0.3 %; Immature Granulocytes Absolute 0.02 #; Lymphocytes # 0.9 10*3/uL (1.4-4.0); Lymphocytes % 13.3 % (21.2-54.2); Mean Corpuscular HGB Conc 31.6 GM/DL (32-36); Mean Platelet Volume 10.3 FL (9.6-12.0); Monocytes % 10.4 % (1.7-12.7); Neutrophils % 70.6 % (38.7-73.9); Platelet Count 163 T/CUMM (130-400); Red Blood Count 4.18 MC/CUMM (3.8-5.5); Red Cell Distribution Width 20.7 % (9.3-17.3); White Blood Count 6.8 T/CUMM (4-12)
[2020-08-03] MEDS: METOCLOPRAMIDE 10 MG/2 ML VIAL IV SCH ×3 (06:02→17:51)
[2020-08-03 06:25] LABS: Calcium 8.5 MG/DL (8.5-10.1); Osmolality,Calculated 261.4 MOS/KG (273-304)
[2020-08-03] MEDS: VENLAFAXINE XR 37.5 MG CAPSULE PO SCH (08:26)
[2020-08-03] MEDS: GABAPENTIN 400 MG CAPSULE PO SCH ×3 (08:26→20:32)
[2020-08-03] MEDS: PANTOPRAZOLE 40 MG TABLET PO SCH ×2 (08:27→20:32)
[2020-08-03] MEDS: lisinopriL 10 MG TABLET PO SCH (08:27)
[2020-08-03] MEDS ORDERED: DEXTROSE 50% 25 GM/50 ML VIAL IV PRN (14:39)
[2020-08-03] MEDS ORDERED: GLUCAGON 1 MG VIAL IM PRN (14:39)
[2020-08-03] MEDS ORDERED: DEXTROSE 10% 1,000 ML IV PRN (17:00)
[2020-08-03] MEDS ORDERED: ZINC/COPPER/MANGANESE/SELENIUM 1 ML, MULTIVITAMIN INJ 10 ML in AMINO ACIDS/DEXT/LYTES 5... IV SCH (17:00)
[2020-08-03] MEDS: INSULIN REGULAR 100 UNIT/ML SUBCUT SCH (17:42)
[2020-08-03] MEDS: HYDROmorphone PCA 30 MG/30 ML SYRINGE IV SCH (18:45)
[2020-08-03] MEDS: ZALEPLON 5 MG CAPSULE PO PRN (20:34)
[2020-08-04 05:09] LABS: Basophils % 0.4 % (0.0-0.8); Eosinophils # 0.1 10*3/uL (0.0-0.87); Hematocrit 35.7 VOL% (42.0-52.0); Hemoglobin 11.8 GM/DL (14.0-18.0); Immature Granulocytes % 0.2 %; Immature Granulocytes Absolute 0.01 #; Lymphocytes # 0.7 10*3/uL (1.4-4.0); Lymphocytes % 12.9 % (21.2-54.2); Mean Corpuscular HGB Conc 33.1 GM/DL (32-36); Mean Platelet Volume 10.8 FL (9.6-12.0); Monocytes % 11.3 % (1.7-12.7); Neutrophils % 73.2 % (38.7-73.9); Platelet Count 184 T/CUMM (130-400); Red Cell Distribution Width 20.5 % (9.3-17.3); White Blood Count 5.6 T/CUMM (4-12)
[2020-08-04] MEDS: SODIUM CHLORIDE 0.9% 1,000 ML IV SCH ×3 (05:24→16:42)
[2020-08-04] MEDS: INSULIN REGULAR 100 UNIT/ML SUBCUT SCH ×4 (05:26→17:51)
[2020-08-04] MEDS: METOCLOPRAMIDE 10 MG/2 ML VIAL IV SCH ×4 (05:27→17:51)
[2020-08-04 05:44] LABS: Albumin 3.4 G/DL (3.4-5.0); Bilirubin,Total 0.6 MG/DL (0.2-1.0); Calcium 8.7 MG/DL (8.5-10.1); Osmolality,Calculated 261.7 MOS/KG (273-304); Total Protein 6.9 G/DL (6.4-8.2)
[2020-08-04] MEDS: lisinopriL 10 MG TABLET PO SCH (08:57)
[2020-08-04] MEDS: GABAPENTIN 400 MG CAPSULE PO SCH ×3 (08:57→20:32)
[2020-08-04] MEDS: PANTOPRAZOLE 40 MG TABLET PO SCH ×2 (08:57→20:32)
[2020-08-04] MEDS: VENLAFAXINE XR 37.5 MG CAPSULE PO SCH (08:57)
[2020-08-04] MEDS ORDERED: SIMETHICONE CHEW 125 MG TABLET PO PRN (10:59)
[2020-08-04] MEDS: LORazepam 2 MG/1 ML VIAL IV PRN (15:17)
[2020-08-04] MEDS: FAT EMULSION 20% 250 ML IV SCH (16:43)
[2020-08-04] MEDS: ZINC/COPPER/MANGANESE/SELENIUM 1 ML, MULTIVITAMIN INJ 10 ML in AMINO ACIDS/DEXT/LYTES 5... IV SCH (16:43)
[2020-08-04] MEDS: HYDROmorphone PCA 30 MG/30 ML SYRINGE IV SCH (18:48)
[2020-08-04] MEDS: ZALEPLON 5 MG CAPSULE PO PRN (20:32)
[2020-08-05] MEDS: METOCLOPRAMIDE 10 MG/2 ML VIAL IV SCH ×4 (02:21→17:13)
[2020-08-05] MEDS: INSULIN REGULAR 100 UNIT/ML SUBCUT SCH ×4 (02:25→17:59)
[2020-08-05] MEDS: SODIUM CHLORIDE 0.9% 1,000 ML IV SCH ×3 (02:26→17:54)
[2020-08-05] MEDS: lisinopriL 10 MG TABLET PO SCH (09:09)
[2020-08-05] MEDS: VENLAFAXINE XR 37.5 MG CAPSULE PO SCH (09:09)
[2020-08-05] MEDS: GABAPENTIN 400 MG CAPSULE PO SCH ×2 (09:09→14:25)
[2020-08-05] MEDS: PANTOPRAZOLE 40 MG TABLET PO SCH (09:09)
[2020-08-05] MEDS: hydrALAZINE 20 MG/1 ML VIAL IV PRN ×2 (11:23→16:39)
[2020-08-05] MEDS: FAT EMULSION 20% 250 ML IV SCH (14:24)
[2020-08-05] MEDS: LORazepam 2 MG/1 ML VIAL IV PRN (17:56)
[2020-08-06] MEDS: METOCLOPRAMIDE 10 MG/2 ML VIAL IV SCH ×4 (00:06→17:08)
[2020-08-06] MEDS: LORazepam 2 MG/1 ML VIAL IV PRN ×4 (00:06→22:26)
[2020-08-06] MEDS: HYDROmorphone PCA 30 MG/30 ML SYRINGE IV SCH ×2 (00:23→14:57)
[2020-08-06] MEDS: SODIUM CHLORIDE 0.9% 1,000 ML IV SCH ×4 (02:21→22:27)
[2020-08-06] MEDS: GABAPENTIN 400 MG CAPSULE PO SCH ×4 (02:48→22:31)
[2020-08-06] MEDS: PANTOPRAZOLE 40 MG TABLET PO SCH ×3 (02:49→22:31)
[2020-08-06] MEDS: INSULIN REGULAR 100 UNIT/ML SUBCUT SCH ×4 (02:51→17:08)
[2020-08-06 05:56] LABS: Basophils % 0.4 % (0.0-0.8); Eosinophils # 0.4 10*3/uL (0.0-0.87); Eosinophils % 9.1 % (0.00-10.9); Hemoglobin 10.3 GM/DL (14.0-18.0); Immature Granulocytes % 0.4 %; Immature Granulocytes Absolute 0.02 #; Lymphocytes # 0.8 10*3/uL (1.4-4.0); Lymphocytes % 18.5 % (21.2-54.2); Mean Corpuscular HGB Conc 32.2 GM/DL (32-36); Mean Corpuscular Volume 77.7 FL (87-102); Mean Platelet Volume 11.7 FL (9.6-12.0); Monocytes % 11.1 % (1.7-12.7); Neutrophils % 60.5 % (38.7-73.9); Platelet Count 141 T/CUMM (130-400); Red Blood Count 4.12 MC/CUMM (3.8-5.5); Red Cell Distribution Width 21.1 % (9.3-17.3); White Blood Count 4.5 T/CUMM (4-12)
[2020-08-06 06:05] LABS: Calcium 8.5 MG/DL (8.5-10.1); Osmolality,Calculated 267.1 MOS/KG (273-304); Potassium 3.7 MMOL/L (3.5-5.1)
[2020-08-06 07:00] LABS: Hypochromasia 2+; Platelet Estimate Normal
[2020-08-06] MEDS: ZINC/COPPER/MANGANESE/SELENIUM 1 ML, MULTIVITAMIN INJ 10 ML in AMINO ACIDS/DEXT/LYTES 5... IV SCH ×2 (09:05→16:30)
[2020-08-06] MEDS: lisinopriL 10 MG TABLET PO SCH (09:06)
[2020-08-06] MEDS: VENLAFAXINE XR 37.5 MG CAPSULE PO SCH (09:06)
[2020-08-06] MEDS: FAT EMULSION 20% 250 ML IV SCH (14:57)
[2020-08-07] MEDS: METOCLOPRAMIDE 10 MG/2 ML VIAL IV SCH ×4 (00:15→18:36)
[2020-08-07] MEDS: INSULIN REGULAR 100 UNIT/ML SUBCUT SCH ×4 (01:36→18:36)
[2020-08-07 05:57] LABS: Calcium 8.4 MG/DL (8.5-10.1); Osmolality,Calculated 275.5 MOS/KG (273-304); Potassium 3.7 MMOL/L (3.5-5.1)
[2020-08-07] MEDS: SODIUM CHLORIDE 0.9% 1,000 ML IV SCH ×2 (07:14→15:39)
[2020-08-07] MEDS: PANTOPRAZOLE 40 MG TABLET PO SCH ×2 (08:24→21:22)
[2020-08-07] MEDS: GABAPENTIN 400 MG CAPSULE PO SCH ×3 (08:24→21:22)
[2020-08-07] MEDS: lisinopriL 10 MG TABLET PO SCH (08:24)
[2020-08-07] MEDS: VENLAFAXINE XR 37.5 MG CAPSULE PO SCH (08:24)
[2020-08-07] MEDS ORDERED: LIDOCAINE 1%/EPI INJ 20 ML VIAL ONE (12:23)
[2020-08-07] MEDS ORDERED: BUPIVACAINE MPF 0.25% 30 ML VIAL ONE (12:23)
[2020-08-07] MEDS ORDERED: fentaNYL 250 MCG/5 ML VIAL ONE (12:44)
[2020-08-07] MEDS ORDERED: MIDAZOLAM 2 MG/2 ML VIAL ONE (12:44)
[2020-08-07] MEDS ORDERED: ROCURONIUM 50 MG/5 ML VIAL IV ONE (12:47)
[2020-08-07] MEDS ORDERED: LIDOCAINE 2% 5 ML VIAL ONE (12:47)
[2020-08-07] MEDS ORDERED: propofoL 200 MG/20 ML VIAL IV ONE (12:47)
[2020-08-07] MEDS ORDERED: SUCCINYLCHOLINE 200 MG/10 ML VIAL ONE (12:47)
[2020-08-07] MEDS ORDERED: LACTATED RINGERS 1,000 ML IV SCH (13:00)
[2020-08-07] MEDS ORDERED: ONDANSETRON 4 MG/2 ML VIAL ONE (13:50)
[2020-08-07] MEDS ORDERED: SEVOFLURANE 1 UNIT/15 MINUTE INH ONE (13:50)
[2020-08-07] MEDS ORDERED: SUGAMMADEX 200 MG/2 ML VIAL IV ONE (13:51)
[2020-08-07] MEDS ORDERED: hydrALAZINE 20 MG/1 ML VIAL IV ONE (14:37)
[2020-08-07] MEDS: HYDROmorphone PCA 30 MG/30 ML SYRINGE IV SCH (16:10)
[2020-08-07] MEDS: FAT EMULSION 20% 250 ML IV SCH (16:53)
[2020-08-07] MEDS: LORazepam 2 MG/1 ML VIAL IV PRN (21:45)
[2020-08-08] MEDS: SODIUM CHLORIDE 0.9% 1,000 ML IV SCH ×4 (00:03→23:30)
[2020-08-08] MEDS: INSULIN REGULAR 100 UNIT/ML SUBCUT SCH ×4 (00:08→17:48)
[2020-08-08] MEDS: METOCLOPRAMIDE 10 MG/2 ML VIAL IV SCH ×5 (00:10→23:52)
[2020-08-08 05:59] LABS: Basophils % 0.7 % (0.0-0.8); Eosinophils # 0.3 10*3/uL (0.0-0.87); Eosinophils % 6.6 % (0.00-10.9); Hemoglobin 9.9 GM/DL (14.0-18.0); Immature Granulocytes % 0.4 %; Immature Granulocytes Absolute 0.02 #; Lymphocytes # 1.1 10*3/uL (1.4-4.0); Mean Corpuscular HGB Conc 30.9 GM/DL (32-36); Mean Platelet Volume 11.4 FL (9.6-12.0); Monocytes % 11.1 % (1.7-12.7); Neutrophils % 56.2 % (38.7-73.9); Platelet Count 156 T/CUMM (130-400); Red Cell Distribution Width 20.5 % (9.3-17.3); White Blood Count 4.5 T/CUMM (4-12)
[2020-08-08 06:19] LABS: Hypochromasia 1+; Platelet Estimate Adequate
[2020-08-08] MEDS: lisinopriL 10 MG TABLET PO SCH (09:07)
[2020-08-08] MEDS: GABAPENTIN 400 MG CAPSULE PO SCH ×3 (09:07→20:40)
[2020-08-08] MEDS: VENLAFAXINE XR 37.5 MG CAPSULE PO SCH (09:07)
[2020-08-08] MEDS: PANTOPRAZOLE 40 MG TABLET PO SCH ×2 (09:07→20:40)
[2020-08-08] MEDS ORDERED: HYDROmorphone 2 MG/1 ML VIAL IV PRN (09:15)
[2020-08-08] MEDS: ZINC/COPPER/MANGANESE/SELENIUM 1 ML, MULTIVITAMIN INJ 10 ML in AMINO ACIDS/DEXT/LYTES 5... IV SCH ×2 (09:25→16:05)
[2020-08-08] MEDS: LORazepam 2 MG/1 ML VIAL IV PRN ×2 (11:14→20:41)
[2020-08-08] MEDS: FAT EMULSION 20% 250 ML IV SCH (13:29)
[2020-08-08] MEDS: ZALEPLON 5 MG CAPSULE PO PRN (23:52)
[2020-08-09] MEDS: INSULIN REGULAR 100 UNIT/ML SUBCUT SCH ×3 (00:06→11:06)
[2020-08-09] MEDS: METOCLOPRAMIDE 10 MG/2 ML VIAL IV SCH ×2 (05:10→11:06)
[2020-08-09] MEDS: LORazepam 2 MG/1 ML VIAL IV PRN ×2 (05:11→11:21)
[2020-08-09] MEDS: lisinopriL 10 MG TABLET PO SCH (09:05)
[2020-08-09] MEDS: GABAPENTIN 400 MG CAPSULE PO SCH (09:05)
[2020-08-09] MEDS: VENLAFAXINE XR 37.5 MG CAPSULE PO SCH (09:05)
[2020-08-09] MEDS: PANTOPRAZOLE 40 MG TABLET PO SCH (09:06)
[2020-08-09] MEDS: SODIUM CHLORIDE 0.9% 1,000 ML IV SCH (09:41)
[2020-08-09 11:19] VITALS: BP 137/86
== END 2020-08-09 12:21 | disposition home or self-care (01) | DRG 336 ==
LOC: N.ED 03:26 → N.EDINP 03:26 → N.TELEN 06:52
PROVIDERS: ADMIT Surgery; ATTEND Surgery

== ENCOUNTER 2021-04-16 05:40 | Inpatient (IN) ==
[2021-04-16] MEDS ORDERED: SODIUM CHLORIDE 0.9% 1,000 ML IV STA (07:35)
[2021-04-16] MEDS ORDERED: ONDANSETRON 4 MG/2 ML VIAL IV STA (07:35)
[2021-04-16] MEDS ORDERED: HYDROmorphone 2 MG/1 ML VIAL IV STA (07:35)
[2021-04-16 07:58] LABS: Basophils % 0.4 % (0.0-0.8); Hematocrit 39.4 VOL% (42.0-52.0); Hemoglobin 12.2 GM/DL (14.0-18.0); Immature Granulocytes % 0.6 %; Immature Granulocytes Absolute 0.06 #; Lymphocytes # 1.3 10*3/uL (1.4-4.0); Lymphocytes % 13.3 % (21.2-54.2); Mean Corpuscular Volume 65.6 FL (87-102); Mean Platelet Volume 10.7 FL (9.6-12.0); Monocytes % 5.1 % (1.7-12.7); Neutrophils % 80.6 % (38.7-73.9); Platelet Count 257 T/CUMM (130-400); Red Blood Count 6.01 MC/CUMM (3.8-5.5); Red Cell Distribution Width 18.4 % (9.3-17.3); White Blood Count 9.7 T/CUMM (4-12)
[2021-04-16 08:14] LABS: Albumin 4.6 G/DL (3.4-5.0); Bilirubin,Total 0.5 MG/DL (0.20-1.00); Calcium 9.8 MG/DL (8.5-10.1); Osmolality,Calculated 260.8 MOS/KG (273-304); Potassium 3.9 MMOL/L (3.5-5.1); Total Protein 8.9 G/DL (6.4-8.2)
[2021-04-16] MEDS ORDERED: NICOTINE 21 MG/24 HR PATCH TRANSDERM PRN (08:32)
[2021-04-16] MEDS ORDERED: DEXTROSE 50% 25 GM/50 ML SYRINGE IV PRN (08:32)
[2021-04-16] MEDS ORDERED: ONDANSETRON 4 MG/2 ML VIAL IV PRN (08:32)
[2021-04-16] MEDS ORDERED: GLUCAGON 1 MG VIAL IM PRN (08:32)
[2021-04-16] MEDS: HYDROmorphone 2 MG/1 ML VIAL IV PRN ×4 (08:56→23:00)
[2021-04-16] MEDS: hydrALAZINE 20 MG/1 ML VIAL IV PRN ×2 (08:58→14:58)
[2021-04-16] MEDS ORDERED: LORazepam 1 MG TABLET PO PRN (09:06)
[2021-04-16 09:40] LABS: Bilirubin,Urine Negative (Negative); Blood, Urine Negative (Negative); Glucose,Urine (UA) Negative (Negative); Ketones,Urine Negative (Negative); Mucus,Urine Occasional /LPF (Occasional); Nitrite,Urine Negative (Negative); Protein,Urine Negative; RBC,Urine 2 /HPF (0-4); Urine Appearance CLEAR (Clear); Urine Color Yellow (Yellow); Urine Specific Gravity 1.044 (1.001-1.035); Urine Urobilinogen < 2.0 EU/DL (<2.0)
[2021-04-16] MEDS ORDERED: LORazepam 1 MG TABLET ONE (09:46)
[2021-04-16] MEDS: HEPARIN 5,000 UNIT/1 ML VIAL SUBCUT SCH ×2 (09:55→20:50)
[2021-04-16] MEDS: PANTOPRAZOLE 40 MG VIAL IV SCH (09:56)
[2021-04-16] MEDS: MORPHINE 2 MG/1 ML SYRINGE IV PRN ×3 (11:40→20:53)
[2021-04-16] MEDS: INSULIN LISPRO 100 UNIT/ML SUBCUT SCH ×3 (12:40→22:48)
[2021-04-16] MEDS: DEXT 5% NACL 0.9% KCL 20 MEQ 20 MEQ/1,000 ML BAG IV SCH ×2 (13:05→23:00)
[2021-04-16] MEDS: ZALEPLON 5 MG CAPSULE PO PRN (20:50)
[2021-04-17] MEDS: MORPHINE 2 MG/1 ML SYRINGE IV PRN ×4 (03:38→22:03)
[2021-04-17] MEDS: HYDROmorphone 2 MG/1 ML VIAL IV PRN ×4 (06:09→20:01)
[2021-04-17 06:37] LABS: Basophils % 0.4 % (0.0-0.8); Hematocrit 36.1 VOL% (42.0-52.0); Hemoglobin 11.2 GM/DL (14.0-18.0); Immature Granulocytes % 0.5 %; Immature Granulocytes Absolute 0.04 #; Lymphocytes # 1.2 10*3/uL (1.4-4.0); Mean Corpuscular Volume 64.7 FL (87-102); Mean Platelet Volume 10.3 FL (9.6-12.0); Monocytes % 8.9 % (1.7-12.7); Neutrophils % 74.2 % (38.7-73.9); Platelet Count 256 T/CUMM (130-400); Red Blood Count 5.58 MC/CUMM (3.8-5.5); Red Cell Distribution Width 18.5 % (9.3-17.3); White Blood Count 7.6 T/CUMM (4-12)
[2021-04-17 06:49] LABS: Calcium 9.3 MG/DL (8.5-10.1); Osmolality,Calculated 261.7 MOS/KG (273-304); Potassium 3.6 MMOL/L (3.5-5.1)
[2021-04-17 06:54] LABS: Albumin 4.1 G/DL (3.4-5.0); Bilirubin,Direct 0.1 MG/DL (0.0-0.20); Bilirubin,Indirect 0.5 MG/DL (0.0-1.0); Bilirubin,Total 0.6 MG/DL (0.20-1.00); Total Protein 7.8 G/DL (6.4-8.2)
[2021-04-17] MEDS: SERTRALINE 100 MG TABLET PO SCH (09:02)
[2021-04-17] MEDS: PANTOPRAZOLE 40 MG VIAL IV SCH (09:02)
[2021-04-17] MEDS: HEPARIN 5,000 UNIT/1 ML VIAL SUBCUT SCH ×2 (09:02→22:02)
[2021-04-17] MEDS: DEXT 5% NACL 0.9% KCL 20 MEQ 20 MEQ/1,000 ML BAG IV SCH ×2 (09:07→20:02)
[2021-04-17] MEDS: INSULIN LISPRO 100 UNIT/ML SUBCUT SCH ×4 (10:48→22:03)
[2021-04-17] MEDS: ZALEPLON 5 MG CAPSULE PO PRN (22:02)
[2021-04-18] MEDS: HYDROmorphone 2 MG/1 ML VIAL IV PRN ×4 (03:52→23:14)
[2021-04-18 05:51] LABS: Basophils % 0.5 % (0.0-0.8); Eosinophils # 0.1 10*3/uL (0.0-0.87); Eosinophils % 1.3 % (0.00-10.9); Hematocrit 35.3 VOL% (42.0-52.0); Hemoglobin 10.7 GM/DL (14.0-18.0); Immature Granulocytes % 0.3 %; Immature Granulocytes Absolute 0.02 #; Lymphocytes # 1.5 10*3/uL (1.4-4.0); Lymphocytes % 24.9 % (21.2-54.2); Mean Corpuscular HGB Conc 30.3 GM/DL (32-36); Mean Corpuscular Volume 66.6 FL (87-102); Mean Platelet Volume 10.4 FL (9.6-12.0); Monocytes % 10.4 % (1.7-12.7); Neutrophils % 62.6 % (38.7-73.9); Platelet Count 198 T/CUMM (130-400); Red Cell Distribution Width 17.7 % (9.3-17.3); White Blood Count 6.1 T/CUMM (4-12)
[2021-04-18 06:11] LABS: Albumin 3.6 G/DL (3.4-5.0); Bilirubin,Total 0.6 MG/DL (0.20-1.00); Osmolality,Calculated 266.2 MOS/KG (273-304); Potassium 3.9 MMOL/L (3.5-5.1); Total Protein 7.1 G/DL (6.4-8.2)
[2021-04-18] MEDS: INSULIN LISPRO 100 UNIT/ML SUBCUT SCH ×4 (07:43→21:35)
[2021-04-18] MEDS: DEXT 5% NACL 0.9% KCL 20 MEQ 20 MEQ/1,000 ML BAG IV SCH ×2 (09:09→19:32)
[2021-04-18] MEDS: SERTRALINE 100 MG TABLET PO SCH (09:13)
[2021-04-18] MEDS: HEPARIN 5,000 UNIT/1 ML VIAL SUBCUT SCH ×2 (09:13→21:30)
[2021-04-18] MEDS: PANTOPRAZOLE 40 MG VIAL IV SCH (09:14)
[2021-04-18] MEDS: MORPHINE 2 MG/1 ML SYRINGE IV PRN (13:41)
[2021-04-18] MEDS: ZALEPLON 5 MG CAPSULE PO PRN (21:29)
[2021-04-19] MEDS: DEXT 5% NACL 0.9% KCL 20 MEQ 20 MEQ/1,000 ML BAG IV SCH (05:23)
[2021-04-19 05:30] LABS: Basophils # 0.1 10*3/uL (0.0-0.2); Eosinophils # 0.1 10*3/uL (0.0-0.87); Eosinophils % 2.6 % (0.00-10.9); Hematocrit 33.7 VOL% (42.0-52.0); Immature Granulocytes % 0.2 %; Immature Granulocytes Absolute 0.01 #; Lymphocytes # 1.7 10*3/uL (1.4-4.0); Mean Corpuscular HGB Conc 29.7 GM/DL (32-36); Mean Corpuscular Volume 67.1 FL (87-102); Monocytes % 9.8 % (1.7-12.7); Neutrophils % 52.4 % (38.7-73.9); Platelet Count 197 T/CUMM (130-400); Red Blood Count 5.02 MC/CUMM (3.8-5.5); Red Cell Distribution Width 17.6 % (9.3-17.3); White Blood Count 5.1 T/CUMM (4-12)
[2021-04-19] MEDS: HYDROmorphone 2 MG/1 ML VIAL IV PRN (05:46)
[2021-04-19 05:49] LABS: Albumin 3.4 G/DL (3.4-5.0); Bilirubin,Total 0.9 MG/DL (0.20-1.00); Calcium 9.1 MG/DL (8.5-10.1); Osmolality,Calculated 270.8 MOS/KG (273-304); Potassium 4.2 MMOL/L (3.5-5.1)
[2021-04-19] MEDS ORDERED: PANTOPRAZOLE 40 MG TABLET PO SCH (06:30)
[2021-04-19] MEDS: INSULIN LISPRO 100 UNIT/ML SUBCUT SCH (07:52)
[2021-04-19 07:54] VITALS: BP 124/81
[2021-04-19] MEDS: SERTRALINE 100 MG TABLET PO SCH (10:02)
[2021-04-19] MEDS: HEPARIN 5,000 UNIT/1 ML VIAL SUBCUT SCH (10:02)
[2021-04-19] MEDS: MORPHINE 2 MG/1 ML SYRINGE IV PRN (10:03)
== END 2021-04-19 11:25 | disposition home or self-care (01) | DRG 392 ==
LOC: N.ED 05:40 → N.EDINP 08:32 → SUATTDRO 08:32 → N.5E 18:00
PROVIDERS: ADMIT Internal Medicine; ATTEND Emergency Medicine

== ENCOUNTER 2021-10-27 13:53 | Observation (INO) ==
[2021-10-27] MEDS ORDERED: ONDANSETRON 4 MG/2 ML VIAL IV STA (16:25)
[2021-10-27] MEDS ORDERED: HYDROmorphone 1 MG/1 ML SYRINGE IV STA (16:25)
[2021-10-27] MEDS ORDERED: SODIUM CHLORIDE 0.9% 1,000 ML IV STA (16:25)
[2021-10-27 17:30] LABS: Basophils % 0.6 % (0.0-0.8); Eosinophils # 0.1 10*3/uL (0.0-0.87); Eosinophils % 2.1 % (0.00-10.9); Hematocrit 37.4 VOL% (42.0-52.0); Hemoglobin 11.2 GM/DL (14.0-18.0); Immature Granulocytes % 0.4 %; Immature Granulocytes Absolute 0.02 #; Lymphocytes # 1.2 10*3/uL (1.4-4.0); Lymphocytes % 22.2 % (21.2-54.2); Mean Corpuscular HGB Conc 29.9 GM/DL (32-36); Mean Corpuscular Volume 68.4 FL (87-102); Monocytes # 0.3 10*3/uL (0.11-0.8); Neutrophils % 68.7 % (38.7-73.9); Platelet Count 145 T/CUMM (130-400); Red Blood Count 5.47 MC/CUMM (3.8-5.5); Red Cell Distribution Width 19.2 % (9.3-17.3); White Blood Count 5.2 T/CUMM (4-12)
[2021-10-27 17:45] LABS: Albumin 4.1 G/DL (3.4-5.0); Bilirubin,Total 0.4 MG/DL (0.20-1.00); Calcium 9.6 MG/DL (8.5-10.1); Potassium 4.4 MMOL/L (3.5-5.1); Total Protein 8.2 G/DL (6.4-8.2)
[2021-10-27 17:49] LABS: RBC,Urine 1 /HPF (0-4); Urine Appearance Clear (Clear); Urine Color Yellow (Yellow); Urine Specific Gravity 1.015 (1.001-1.035)
[2021-10-27 17:50] LABS: Bilirubin,Urine Negative (Negative); Blood, Urine Negative (Negative); Glucose,Urine (UA) Negative (Negative); Ketones,Urine Negative (Negative); Nitrite,Urine Negative (Negative); Protein,Urine Negative (Negative); Urine Urobilinogen 0.2 eU/dL (<2.0)
[2021-10-27] MEDS ORDERED: PANTOPRAZOLE 40 MG VIAL IV STA (17:57)
[2021-10-27] MEDS ORDERED: CALCIUM CARBONATE CHEW 500 MG TABLET PO PRN (19:07)
[2021-10-27] MEDS ORDERED: ACETAMINOPHEN 325 MG TABLET PO PRN (19:07)
[2021-10-27] MEDS ORDERED: NICOTINE 21 MG/24 HR PATCH TRANSDERM PRN (19:07)
[2021-10-27] MEDS ORDERED: ONDANSETRON 4 MG/2 ML VIAL IV PRN (19:07)
[2021-10-27] MEDS: LACTATED RINGERS 1,000 ML IV SCH (19:53)
[2021-10-27] MEDS: ENOXAPARIN 40 MG/0.4 ML SYRINGE SUBCUT SCH (20:43)
[2021-10-27] MEDS: PANTOPRAZOLE 40 MG TABLET PO SCH (20:45)
[2021-10-27] MEDS: ZALEPLON 5 MG CAPSULE PO PRN (21:37)
[2021-10-27] MEDS: HYDROmorphone 1 MG/1 ML SYRINGE IV PRN (21:45)
[2021-10-28] MEDS: HYDROmorphone 1 MG/1 ML SYRINGE IV PRN ×6 (02:06→22:23)
[2021-10-28] MEDS: LACTATED RINGERS 1,000 ML IV SCH ×3 (03:33→20:41)
[2021-10-28 05:12] LABS: Basophils % 0.7 % (0.0-0.8); Eosinophils # 0.1 10*3/uL (0.0-0.87); Eosinophils % 2.9 % (0.00-10.9); Hematocrit 33.8 VOL% (42.0-52.0); Hemoglobin 10.3 GM/DL (14.0-18.0); Immature Granulocytes % 0.2 %; Immature Granulocytes Absolute 0.01 #; Lymphocytes # 1.2 10*3/uL (1.4-4.0); Lymphocytes % 25.7 % (21.2-54.2); Mean Corpuscular HGB Conc 30.5 GM/DL (32-36); Mean Corpuscular Volume 67.6 FL (87-102); Mean Platelet Volume 10.5 FL (9.6-12.0); Monocytes # 0.4 10*3/uL (0.11-0.8); Neutrophils % 61.5 % (38.7-73.9); Red Cell Distribution Width 18.4 % (9.3-17.3); White Blood Count 4.6 T/CUMM (4-12)
[2021-10-28 05:44] LABS: Platelet Count 180 T/CUMM (130-400)
[2021-10-28 05:49] LABS: Calcium 9.4 MG/DL (8.5-10.1); Osmolality,Calculated 266.1 MOS/KG (273-304); Potassium 4.1 MMOL/L (3.5-5.1)
[2021-10-28 05:57] LABS: Hypochromia 2+; Microcytosis 2+; Platelet Estimate Adequate; Target Cells Slight
[2021-10-28] MEDS: PANTOPRAZOLE 40 MG TABLET PO SCH ×2 (09:15→22:31)
[2021-10-28] MEDS ORDERED: HYOSCYAMINE 0.125 MG TABLET PO PRN (11:06)
[2021-10-28] MEDS ORDERED: PROMETHAZINE INJ 12.5 MG in SODIUM CHLORIDE 0.9% 50 ML IV PRN (11:07)
[2021-10-28] MEDS ORDERED: SODIUM PHOSPHATE ENEMA 133 ML BOTTLE RECTAL ONE (11:12)
[2021-10-28] MEDS: LIPASE/PROTEASE/AMYLASE 4,200 UNITS CAPSULE PO SCH ×2 (12:20→17:17)
[2021-10-28] MEDS: POLYETHYLENE GLYCOL POWDER 17 GM PACK PO SCH (12:22)
[2021-10-28] MEDS ORDERED: LACTULOSE 20 GM/30 ML UDCUP PO ONE (12:30)
[2021-10-28] MEDS: ZALEPLON 5 MG CAPSULE PO PRN (22:25)
[2021-10-28] MEDS: ENOXAPARIN 40 MG/0.4 ML SYRINGE SUBCUT SCH (22:44)
[2021-10-29] MEDS: HYDROmorphone 1 MG/1 ML SYRINGE IV PRN ×2 (02:54→18:36)
[2021-10-29] MEDS: LACTATED RINGERS 1,000 ML IV SCH ×3 (03:35→21:11)
[2021-10-29] MEDS: POLYETHYLENE GLYCOL POWDER 17 GM PACK PO SCH (08:48)
[2021-10-29] MEDS: LIPASE/PROTEASE/AMYLASE 4,200 UNITS CAPSULE PO SCH ×3 (08:48→17:07)
[2021-10-29] MEDS: PANTOPRAZOLE 40 MG TABLET PO SCH ×2 (08:48→21:09)
[2021-10-29] MEDS: KETOROLAC 30 MG/1 ML VIAL IV SCH ×2 (09:44→15:08)
[2021-10-29] MEDS: ZALEPLON 5 MG CAPSULE PO PRN (21:09)
[2021-10-29] MEDS: ENOXAPARIN 40 MG/0.4 ML SYRINGE SUBCUT SCH (21:10)
[2021-10-30] MEDS: HYDROmorphone 1 MG/1 ML SYRINGE IV PRN ×2 (00:14→09:26)
[2021-10-30] MEDS: LACTATED RINGERS 1,000 ML IV SCH (04:02)
[2021-10-30] MEDS ORDERED: amLODIPine 10 MG TABLET PO SCH (09:00)
[2021-10-30] MEDS: LIPASE/PROTEASE/AMYLASE 4,200 UNITS CAPSULE PO SCH ×2 (09:25→12:30)
[2021-10-30] MEDS: POLYETHYLENE GLYCOL POWDER 17 GM PACK PO SCH (09:25)
[2021-10-30] MEDS: PANTOPRAZOLE 40 MG TABLET PO SCH (09:25)
[2021-10-30 12:24] VITALS: BP 168/102
== END 2021-10-30 12:36 | disposition home or self-care (01) ==
LOC: N.5E 13:53 → N.ED 13:53 → SUATTDRO 19:07 → N.5E 20:26
PROVIDERS: ADMIT Internal Medicine; ATTEND Internal Medicine

== ENCOUNTER 2021-12-06 11:05 | Observation (INO) ==
[2021-12-06] MEDS ORDERED: hydrOXYzine HCL 25 MG TABLET PO STA (12:49)
[2021-12-06] MEDS ORDERED: GLUCAGON 1 MG VIAL IM PRN (12:50)
[2021-12-06] MEDS ORDERED: DEXTROSE 10% 250 ML BAG IV PRN (12:50)
[2021-12-06] MEDS ORDERED: MAGNESIUM SULF RIDER 2 GM/50 ML PREMIX IV ONE (12:50)
[2021-12-06] MEDS ORDERED: ONDANSETRON 4 MG/2 ML VIAL IV PRN (12:50)
[2021-12-06] MEDS ORDERED: PANTOPRAZOLE 40 MG VIAL IV SCH ×2 (13:00→13:30)
[2021-12-06] MEDS ORDERED: SODIUM CHLORIDE 0.9% 1,000 ML IV SCH (13:00)
[2021-12-06] MEDS ORDERED: hydrOXYzine HCL 25 MG TABLET PO PRN (13:01)
[2021-12-06 14:53] LABS: Risk Ratio 3.11; VLDL Cholesterol 19.4 MG/DL
[2021-12-06 15:02] VITALS: BP 134/87
== END 2021-12-06 14:44 | disposition left against medical advice (07) ==
LOC: N.EDINP 11:05 → N.ED 11:05 → N.EDINP 14:44
PROVIDERS: ADMIT Family Medicine; ATTEND Family Medicine

== ENCOUNTER 2021-12-09 04:08 | Inpatient (IN) ==
[2021-12-09] MEDS ORDERED: SODIUM CHLORIDE 0.9% 1,000 ML IV STA (04:19)
[2021-12-09] MEDS ORDERED: ONDANSETRON 4 MG/2 ML VIAL IV STA (04:19)
[2021-12-09 04:54] LABS: Basophils % 0.4 % (0.0-0.8); Eosinophils % 0.5 % (0.00-10.9); Hematocrit 39.8 VOL% (42.0-52.0); Hemoglobin 12.7 GM/DL (14.0-18.0); Immature Granulocytes % 0.2 %; Immature Granulocytes Absolute 0.02 #; Lymphocytes # 1.6 10*3/uL (1.4-4.0); Lymphocytes % 19.5 % (21.2-54.2); Mean Corpuscular HGB Conc 31.9 GM/DL (32-36); Mean Corpuscular Volume 70.4 FL (87-102); Monocytes # 0.5 10*3/uL (0.11-0.8); Monocytes % 6.5 % (1.7-12.7); Neutrophils % 72.9 % (38.7-73.9); Platelet Count 178 T/CUMM (130-400); Red Blood Count 5.65 MC/CUMM (3.8-5.5); Red Cell Distribution Width 22.3 % (9.3-17.3); White Blood Count 8.2 T/CUMM (4-12)
[2021-12-09] MEDS ORDERED: PANTOPRAZOLE 40 MG VIAL IV STA (05:11)
[2021-12-09] MEDS ORDERED: HYDROmorphone 1 MG/1 ML SYRINGE IV STA (05:11)
[2021-12-09 05:12] LABS: Albumin 4.2 G/DL (3.4-5.0); Bilirubin,Total 0.5 MG/DL (0.20-1.00); Calcium 9.5 MG/DL (8.5-10.1); Osmolality,Calculated 254.1 MOS/KG (273-304); Potassium 3.9 MMOL/L (3.5-5.1)
[2021-12-09] MEDS ORDERED: hydrALAZINE 20 MG/1 ML VIAL IV PRN (06:01)
[2021-12-09] MEDS ORDERED: GLUCAGON 1 MG VIAL IM PRN (06:01)
[2021-12-09] MEDS ORDERED: ONDANSETRON 4 MG/2 ML VIAL IV PRN (06:01)
[2021-12-09] MEDS ORDERED: DEXTROSE 10% 250 ML BAG IV PRN (06:10)
[2021-12-09] MEDS ORDERED: NICOTINE 21 MG/24 HR PATCH TRANSDERM PRN (06:19)
[2021-12-09] MEDS ORDERED: SODIUM CHLORIDE 0.9% 1,000 ML IV SCH (06:30)
[2021-12-09 07:23] LABS: RBC,Urine 1 /HPF (0-4); Urine Appearance Clear (Clear); Urine Color Yellow (Yellow); Urine pH 7.5 (4.5-8.0)
[2021-12-09 07:24] LABS: Bilirubin,Urine Negative (Negative); Blood, Urine Negative (Negative); Glucose,Urine (UA) Negative (Negative); Ketones,Urine Negative (Negative); Nitrite,Urine Negative (Negative); Protein,Urine Negative (Negative); Urine Urobilinogen 0.2 eU/dL (<2.0)
[2021-12-09] MEDS: HYDROmorphone 1 MG/1 ML SYRINGE IV PRN ×4 (09:04→20:48)
[2021-12-09] MEDS: LACTATED RINGERS 1,000 ML IV SCH ×3 (10:16→22:58)
[2021-12-09] MEDS: SUCRALFATE 1 GM TABLET PO SCH ×2 (19:00→23:53)
[2021-12-09] MEDS: PANTOPRAZOLE 40 MG VIAL IV SCH (20:48)
[2021-12-10] MEDS: HYDROmorphone 1 MG/1 ML SYRINGE IV PRN (02:28)
[2021-12-10] MEDS: SUCRALFATE 1 GM TABLET PO SCH ×4 (05:17→23:26)
[2021-12-10] MEDS: LACTATED RINGERS 1,000 ML IV SCH (05:18)
[2021-12-10 06:26] LABS: Basophils # 0.1 10*3/uL (0.0-0.2); Basophils % 0.9 % (0.0-0.8); Eosinophils # 0.1 10*3/uL (0.0-0.87); Hematocrit 37.7 VOL% (42.0-52.0); Immature Granulocytes % 0.2 %; Immature Granulocytes Absolute 0.01 #; Lymphocytes # 1.7 10*3/uL (1.4-4.0); Mean Corpuscular HGB Conc 31.8 GM/DL (32-36); Mean Platelet Volume 11.2 FL (9.6-12.0); Monocytes # 0.4 10*3/uL (0.11-0.8); Monocytes % 6.9 % (1.7-12.7); Platelet Count 139 T/CUMM (130-400); Red Blood Count 5.31 MC/CUMM (3.8-5.5); Red Cell Distribution Width 22.6 % (9.3-17.3); White Blood Count 5.5 T/CUMM (4-12)
[2021-12-10 06:35] LABS: Albumin 3.4 G/DL (3.4-5.0); Bilirubin,Total 0.4 MG/DL (0.20-1.00); Calcium 9.3 MG/DL (8.5-10.1); Potassium 4.1 MMOL/L (3.5-5.1); Total Protein 6.7 G/DL (6.4-8.2)
[2021-12-10 06:45] LABS: Hypochromia 1+
[2021-12-10 06:46] LABS: Microcytosis 1+; Ovalocytes Slight; Target Cells Slight
[2021-12-10 06:47] LABS: Platelet Estimate Adequate
[2021-12-10] MEDS ORDERED: PANTOPRAZOLE 40 MG VIAL IV SCH (09:00)
[2021-12-10] MEDS: PANTOPRAZOLE 40 MG VIAL IV SCH ×2 (09:05→20:41)
[2021-12-10] MEDS: oxyCODONE/ACETAMINOPHEN 5-325 MG TABLET PO PRN ×4 (09:05→22:50)
[2021-12-10] MEDS ORDERED: diphenhydrAMINE CAP 25 MG CAPSULE PO SCH (21:00)
[2021-12-10] MEDS ORDERED: AMITRIPTYLINE 50 MG TABLET PO SCH (21:00)
[2021-12-11] MEDS: SUCRALFATE 1 GM TABLET PO SCH (05:52)
[2021-12-11 06:08] LABS: Basophils % 0.9 % (0.0-0.8); Eosinophils # 0.2 10*3/uL (0.0-0.87); Eosinophils % 4.5 % (0.00-10.9); Hematocrit 38.9 VOL% (42.0-52.0); Hemoglobin 12.4 GM/DL (14.0-18.0); Immature Granulocytes % 0.5 %; Immature Granulocytes Absolute 0.02 #; Lymphocytes # 1.4 10*3/uL (1.4-4.0); Lymphocytes % 33.6 % (21.2-54.2); Mean Corpuscular HGB Conc 31.9 GM/DL (32-36); Mean Corpuscular Volume 70.6 FL (87-102); Monocytes # 0.4 10*3/uL (0.11-0.8); Monocytes % 8.9 % (1.7-12.7); Neutrophils % 51.6 % (38.7-73.9); Platelet Count 146 T/CUMM (130-400); Red Blood Count 5.51 MC/CUMM (3.8-5.5); White Blood Count 4.3 T/CUMM (4-12)
[2021-12-11] MEDS: oxyCODONE/ACETAMINOPHEN 5-325 MG TABLET PO PRN ×2 (06:09→10:54)
[2021-12-11 06:22] LABS: % Iron Saturation 6.9 % (18-50); Albumin 3.7 G/DL (3.4-5.0); Bilirubin,Total 0.6 MG/DL (0.20-1.00); Calcium 9.5 MG/DL (8.5-10.1); Ferritin 6.1 ng/mL (26-388); Osmolality,Calculated 257.7 MOS/KG (273-304); Potassium 3.9 MMOL/L (3.5-5.1); Total Protein 7.2 G/DL (6.4-8.2)
[2021-12-11] MEDS: PANTOPRAZOLE 40 MG VIAL IV SCH (10:53)
[2021-12-11 11:58] VITALS: BP 151/96
== END 2021-12-11 12:15 | disposition home or self-care (01) | DRG 439 ==
LOC: SUATTDRO → N.ED 04:08 → N.EDINP 06:26 → N.5E 07:57
PROVIDERS: ADMIT Internal Medicine; ATTEND Internal Medicine